=== PATIENT | female | born 1955 | race Caucasian/White ===

== ENCOUNTER 2018-05-04 09:50 | Emergency (ER) | payer MEDICARE, OTHER ==
[~2018-05-04] VITALS: Ht 172.7 cm; Wt 59.0 kg
[2018-05-04 11:56] LABS: Basophils # (auto) 0 uL; Basophils % (auto) 0.2 % (0.0-2.0); Eosinophils # (auto) 0 uL; Eosinophils % (auto) 0.4 % (0.0-7.0); Hematocrit 42.4 % (36.0-46.0); Hemoglobin 14.5 g/dL (12.2-16.2); Lymphocytes # (auto) 1.7 uL; Lymphocytes % (auto) 23.5 % (10.0-50.0); Mean Corpuscular Hemoglobin 32.1 pg (28.0-32.0); Mean Corpuscular Hgb Conc. 34.2 g/dL (32.0-36.0); Mean Corpuscular Volume 93.8 fL (80.0-100.0); Monocytes # (auto) 0.3 uL; Monocytes % (auto) 4.8 % (0.0-12.0); Neutrophils # (auto) 5.1 uL; Neutrophils % (auto) 71.1 % (37.0-80.0); Platelet Count (auto) 276 10^3/uL (140-450); Red Blood Cells 4.52 10^6/uL (4.0-5.20); Red Cell Distribution Width 14.1 % (11.8-14.3); White Blood Cell 7.2 10^3/uL (4.4-10.8)
[2018-05-04 12:04] LABS: Albumin 3.8 g/dL (3.4-5.0)
[2018-05-04 12:07] LABS: BUN/Creatinine Ratio 20.7; Bilirubin, Total 0.3 mg/dL (0.2-1.0); Total Protein 7.3 g/dL (6.4-8.2)
[2018-05-04 13:06] LABS: Urine Bacteria FEW /hpf (None Seen); Urine Blood Negative /uL (Negative); Urine Hyaline Cast FEW /lpf (0 - 2); Urine Mucus MANY (None Seen); Urine Specific Gravity 1.028 (1.001-1.035); Urine WBC 15 /hpf (0 - 5)
[2018-05-04 13:36] LABS: Alcohol, Urine < 3.0 mg/dL (0-5); Amphetamine Screen, Urine NEGATIVE (NEGATIVE); Barbiturate Scree,Urine NEGATIVE (NEGATIVE); Benzodiazephine Screen, Urine NEGATIVE (NEGATIVE); Cannabinoid Screen, Urine NEGATIVE (NEGATIVE); Cocaine Screen, Urine NEGATIVE (NEGATIVE); Opiate Scree,Urine NEGATIVE (NEGATIVE); Phencyclidine Screen, Urine NEGATIVE (NEGATIVE)
[2018-05-04 14:30] LABS: Salicylate 2.7 mg/dL (2.8-20.0)
[2018-05-04] MEDS ORDERED: cefTRIAXone W LIDOCAINE 1 GM IM IM ONE (14:30)
[2018-05-04 14:34] LABS: Acetaminophen < 2.0 ug/mL (10-30)
[2018-05-04] MEDS ORDERED: cefTRIAXone SOD 1,000 MG VL ONE (19:41)
[2018-05-05] MEDS ORDERED: LORazepam 0.5 MG TAB ONE (09:02)
[2018-05-05] MEDS: LORazepam 0.5 MG TAB PO PRN ×2 (09:07→18:15)
[2018-05-05] MEDS: NITROFURANTOIN (MONO) 100 mg CAP PO SCH (10:20)
[2018-05-05] MEDS ORDERED: NICOTINE 7MG/24HR TOPICAL PATCH TD ONE (18:30)
[2018-05-06] MEDS: NITROFURANTOIN (MONO) 100 mg CAP PO SCH ×3 (16:23→22:00)
[2018-05-06] MEDS ORDERED: LORazepam 0.5 MG TAB PO ONE (20:15)
[2018-05-07 08:53] VITALS: BP 125/82
[2018-05-07] MEDS: NITROFURANTOIN (MONO) 100 mg CAP PO SCH (10:00)
== END 2018-05-04 21:41 | disposition home or self-care (01) ==
LOC: ER 09:50
DX: F32.2 Major depressive disorder, single episode, severe without psychotic features (principal); N39.0 Urinary tract infection, site not specified; F41.9 Anxiety disorder, unspecified; F17.210 Nicotine dependence, cigarettes, uncomplicated; F12.90 Cannabis use, unspecified, uncomplicated; Z59.0 Homelessness; Z98.51 Tubal ligation status
CPT/HCPCS: 36415; 71045; 80053; 80307; 80329; 81001; 85025; 93005; 94761; 96372; 99285; J0696

== ENCOUNTER 2018-05-09 09:15 | Emergency (ER) | payer OTHER ==
[~2018-05-09] VITALS: Ht 172.7 cm; Wt 68.0 kg
[2018-05-09 09:52] LABS: Basophils # (auto) 0 uL; Basophils % (auto) 0.1 % (0.0-2.0); Eosinophils # (auto) 0 uL; Eosinophils % (auto) 0.4 % (0.0-7.0); Hematocrit 42.4 % (36.0-46.0); Hemoglobin 14.2 g/dL (12.2-16.2); Lymphocytes # (auto) 1.4 uL; Lymphocytes % (auto) 18.1 % (10.0-50.0); Mean Corpuscular Hemoglobin 31.6 pg (28.0-32.0); Mean Corpuscular Hgb Conc. 33.4 g/dL (32.0-36.0); Mean Corpuscular Volume 94.6 fL (80.0-100.0); Monocytes # (auto) 0.5 uL; Monocytes % (auto) 5.9 % (0.0-12.0); Neutrophils % (auto) 75.5 % (37.0-80.0); Nucleated Red Blood Cells % 0.1 %; Platelet Count (auto) 305 10^3/uL (140-450); Red Blood Cells 4.49 10^6/uL (4.0-5.20); Red Cell Distribution Width 13.7 % (11.8-14.3); White Blood Cell 7.9 10^3/uL (4.4-10.8)
[2018-05-09 10:12] LABS: Albumin 3.9 g/dL (3.4-5.0); Anion Gap 7 (5-15); Blood Urea Nitrogen 19 mg/dL (7-18); Calcium 8.7 mg/dL (8.5-10.1); Carbon Dioxide 27 mmol/L (21-32); Chloride 102 mmol/L (98-107); Glucose 128 mg/dL (74-106); Magnesium 2.5 mg/dL (1.6-2.6); Potassium 3.7 mmol/L (3.5-5.1); Sodium 136 mmol/L (136-145)
[2018-05-09 10:18] LABS: Alanine Aminotransferase 23 U/L (13-56); Alkaline Phosphatase 93 U/L (45-117); Aspartate Aminotransferase 21 U/L (15-37); BUN/Creatinine Ratio 20.2; Bilirubin, Total 0.4 mg/dL (0.2-1.0); GFR African American 77 mL/min; GFR Non-African American 64 mL/min; Total Protein 7.3 g/dL (6.4-8.2)
[2018-05-09 11:40] LABS: Urine Bacteria FEW /hpf (None Seen); Urine Blood Negative /uL (Negative); Urine Mucus FEW (None Seen); Urine Specific Gravity 1.022 (1.001-1.035); Urine WBC 4 /hpf (0 - 5)
[2018-05-09] MEDS ORDERED: OSELTAMIVIR 75 MG CAP PO ONE (13:15)
[2018-05-09 15:39] LABS: Alcohol, Urine < 3.0 mg/dL (0-5); Amphetamine Screen, Urine NEGATIVE (NEGATIVE); Barbiturate Scree,Urine NEGATIVE (NEGATIVE); Benzodiazephine Screen, Urine NEGATIVE (NEGATIVE); Cannabinoid Screen, Urine NEGATIVE (NEGATIVE); Cocaine Screen, Urine NEGATIVE (NEGATIVE); Opiate Scree,Urine NEGATIVE (NEGATIVE); Phencyclidine Screen, Urine NEGATIVE (NEGATIVE)
[2018-05-10] MEDS ORDERED: ONDANSETRON HCL 4 MG/2 ML VIAL IM ONE
[2018-05-12 08:31] VITALS: BP 126/64
== END 2018-05-12 14:56 | disposition home or self-care (01) ==
LOC: EDBD 09:15 → ER 09:15
DX: R45.851 Suicidal ideations (principal); J11.1 Influenza due to unidentified influenza virus with other respiratory manifestations; F41.9 Anxiety disorder, unspecified; F32.9 Major depressive disorder, single episode, unspecified; F17.210 Nicotine dependence, cigarettes, uncomplicated; F12.90 Cannabis use, unspecified, uncomplicated; Z98.51 Tubal ligation status; Z59.0 Homelessness
CPT/HCPCS: 36415; 80053; 80307; 80320; 81001; 83735; 84484; 85025; 87804; 93005; 96372; 99285; J2405

== ENCOUNTER 2022-04-03 18:46 | Inpatient (IN) | payer MEDICARE, OTHER ==
[~2022-04-03] VITALS: Ht 162.6 cm; Wt 80.5 kg
[2022-04-03 20:15] LABS: Basophils # (auto) 0 10 ^3/uL (0-0.2); Basophils % (auto) 0.2 % (0.0-2.0); Eosinophils # (auto) 0.1 10 ^3/uL (0-0.8); Eosinophils % (auto) 1.1 % (0.0-7.0); Hematocrit 44.5 % (36.0-46.0); Hemoglobin 15.3 g/dL (12.2-16.2); Lymphocytes # (auto) 2.5 10 ^3/uL (0.4-5.4); Lymphocytes % (auto) 36.9 % (10.0-50.0); Mean Corpuscular Hemoglobin 32.6 pg (28.0-32.0); Mean Corpuscular Hgb Conc. 34.5 g/dL (32.0-36.0); Mean Corpuscular Volume 94.7 fL (80.0-100.0); Monocytes # (auto) 0.4 10 ^3/uL (0-1.3); Monocytes % (auto) 6.2 % (0.0-12.0); Neutrophils # (auto) 3.8 10 ^3/uL (1.6-8.6); Neutrophils % (auto) 55.6 % (37.0-80.0); Nucleated Red Blood Cells % 0.1 %; Red Cell Distribution Width 13.9 % (11.8-14.3); White Blood Cell 6.8 10^3/uL (4.4-10.8)
[2022-04-03 20:31] LABS: Albumin 3.6 g/dL (3.4-5.0); BUN/Creatinine Ratio 19.4; Calcium 9.8 mg/dL (8.5-10.1); Potassium 4.5 mmol/L (3.5-5.1)
[2022-04-03 20:34] LABS: Bilirubin, Total 0.3 mg/dL (0.2-1.0); Total Protein 6.9 g/dL (6.4-8.2)
[2022-04-04 09:30] LABS: INR 0.97 (0.9-1.15); Partial Thromboplastin Time 27.7 sec (24.6-33.4)
[2022-04-04] MEDS ORDERED: ACETAMINOPHEN 325 MG TAB PO PRN (10:30)
[2022-04-04] MEDS ORDERED: NITROGLYCERIN 0.4 MG SL TAB SL PRN (10:30)
[2022-04-04] MEDS ORDERED: ONDANSETRON HCL 4 MG/2 ML VIAL IV PRN (10:30)
[2022-04-04] MEDS ORDERED: MORPHINE SULFATE 4 MG/ML SYR/VIAL IV PRN (10:30)
[2022-04-04] MEDS ORDERED: ENOXAPARIN SOD 30 MG/0.3 ML SYRINGE SC ONE (10:30)
[2022-04-04] MEDS ORDERED: ENOXAPARIN SOD 40 MG/0.4 ML SYRINGE SC ONE (11:00)
[2022-04-04] MEDS: ASPirin 81 mg TAB PO SCH (11:13)
[2022-04-04 11:24] LABS: INR 0.99 (0.9-1.15)
[2022-04-04] MEDS: ATORVASTATIN 20 MG TAB PO SCH (22:17)
[2022-04-05 05:00] LABS: Basophils # (auto) 0 10 ^3/uL (0-0.2); Basophils % (auto) 0.2 % (0.0-2.0); Eosinophils # (auto) 0.1 10 ^3/uL (0-0.8); Eosinophils % (auto) 1.1 % (0.0-7.0); Hematocrit 44.9 % (36.0-46.0); Hemoglobin 15.4 g/dL (12.2-16.2); Lymphocytes % (auto) 37.7 % (10.0-50.0); Mean Corpuscular Hemoglobin 32.3 pg (28.0-32.0); Mean Corpuscular Hgb Conc. 34.2 g/dL (32.0-36.0); Mean Corpuscular Volume 94.6 fL (80.0-100.0); Monocytes # (auto) 0.4 10 ^3/uL (0-1.3); Monocytes % (auto) 7.3 % (0.0-12.0); Neutrophils # (auto) 2.8 10 ^3/uL (1.6-8.6); Neutrophils % (auto) 53.7 % (37.0-80.0); Nucleated Red Blood Cells % 0.1 %; Red Blood Cells 4.75 10^6/uL (4.0-5.20); Red Cell Distribution Width 13.8 % (11.8-14.3); White Blood Cell 5.3 10^3/uL (4.4-10.8)
[2022-04-05 05:14] LABS: Albumin 3.5 g/dL (3.4-5.0); Calcium 8.7 mg/dL (8.5-10.1); Potassium 4.3 mmol/L (3.5-5.1)
[2022-04-05 05:18] LABS: BUN/Creatinine Ratio 27.6; Bilirubin, Total 0.5 mg/dL (0.2-1.0); Total Protein 6.2 g/dL (6.4-8.2)
[2022-04-05 08:06] LABS: RPR Non Reactive (Non Reactive)
[2022-04-05] MEDS: LISINOPRIL 5 MG TAB PO SCH (10:26)
[2022-04-05] MEDS: ASPirin 81 mg TAB PO SCH (10:26)
[2022-04-05] MEDS: ENOXAPARIN SOD 40 MG/0.4 ML SYRINGE SC SCH (10:27)
[2022-04-05] MEDS: DOCUSATE SOD 100 MG CAP PO SCH (11:01)
[2022-04-05 13:59] LABS: Urine Bacteria FEW /hpf (None Seen); Urine Blood Negative /uL (Negative); Urine Mucus FEW (None Seen); Urine WBC 10 /hpf (0 - 5)
[2022-04-05 14:32] LABS: Alcohol, Urine < 3.0 mg/dL (0-10); Barbiturate Scree,Urine NEGATIVE (NEGATIVE); Benzodiazephine Screen, Urine NEGATIVE (NEGATIVE); Cannabinoid Screen, Urine NEGATIVE (NEGATIVE); Cocaine Screen, Urine NEGATIVE (NEGATIVE); Opiate Scree,Urine NEGATIVE (NEGATIVE); Phencyclidine Screen, Urine NEGATIVE (NEGATIVE)
[2022-04-05 15:13] LABS: Amphetamine Screen, Urine POSITIVE (NEGATIVE)
[2022-04-05 18:40] VITALS: BP 102/74
[2022-04-05] MEDS ORDERED: ATOR20TA50 PO (19:30)
[2022-04-05] MEDS ORDERED: ESCI-28 PO (19:30)
[2022-04-05] MEDS ORDERED: QUET1TAB11 PO (19:30)
[2022-04-05] MEDS ORDERED: DIVA1TAB37 PO (19:30)
[2022-04-05] MEDS ORDERED: OLAN15TA31 PO (19:30)
[2022-04-05 20:00] VITALS: BP 112/63
[2022-04-05 22:00] VITALS: BP 112/63
[2022-04-05] MEDS: ATORVASTATIN 20 MG TAB PO SCH (22:00)
[2022-04-06 05:00] VITALS: BP 114/69
[2022-04-06 08:00] VITALS: BP 113/69
[2022-04-06 09:30] VITALS: BP 113/69
[2022-04-06] MEDS: DOCUSATE SOD 100 MG CAP PO SCH (10:18)
[2022-04-06] MEDS: ASPirin 81 mg TAB PO SCH (10:18)
[2022-04-06] MEDS: LISINOPRIL 5 MG TAB PO SCH (10:19)
[2022-04-06] MEDS: ENOXAPARIN SOD 40 MG/0.4 ML SYRINGE SC SCH (10:20)
[2022-04-06 12:34] VITALS: BP 109/61
[2022-04-06 16:36] VITALS: BP 112/71
[2022-04-06] MEDS: ATORVASTATIN 20 MG TAB PO SCH (20:48)
[2022-04-06 22:28] VITALS: BP 124/80
[2022-04-07 04:48] VITALS: BP 102/53
[2022-04-07] MEDS: ENOXAPARIN SOD 40 MG/0.4 ML SYRINGE SC SCH (09:10)
[2022-04-07] MEDS: DOCUSATE SOD 100 MG CAP PO SCH (09:10)
[2022-04-07] MEDS: ASPirin 81 mg TAB PO SCH (09:10)
[2022-04-07] MEDS: LISINOPRIL 5 MG TAB PO SCH (09:11)
[2022-04-07 09:24] VITALS: BP 110/70
[2022-04-07 12:33] VITALS: BP 98/63
[2022-04-07 15:10] VITALS: BP 110/70
== END 2022-04-07 16:00 | disposition home or self-care (01) | DRG 311 ==
LOC: EDBD 18:46 → ER 18:50 → TELE 04-04 10:32 → TELE-EAST 04-05 18:40
PROVIDERS: ADMIT Nurse Practitioner Family; ATTEND Internal Medicine Geriatric Medicine
DX: I24.9 Acute ischemic heart disease, unspecified (principal); G93.40 Encephalopathy, unspecified; F32.A Depression, unspecified; F41.9 Anxiety disorder, unspecified; I10 Essential (primary) hypertension; F19.10 Other psychoactive substance abuse, uncomplicated; Z20.822 Contact with and (suspected) exposure to COVID-19; E66.9 Obesity, unspecified; E78.5 Hyperlipidemia, unspecified; F15.10 Other stimulant abuse, uncomplicated; F25.9 Schizoaffective disorder, unspecified; Z59.00 Homelessness unspecified; I25.2 Old myocardial infarction; Z68.30 Body mass index [BMI] 30.0-30.9, adult; Z72.0 Tobacco use; Z71.6 Tobacco abuse counseling
CPT/HCPCS: 36415; 70450; 71045; 80053; 80061; 80307; 80320; 80329; 81001; 82306; 82553; 82607; 83605; 83690; 83735; 84443; 84484; 85025; 85610; 85730; 86592; 87426; 93005; 93306; 93886; 96372; G0378

== ENCOUNTER 2022-06-20 13:08 | Inpatient (IN) | payer OTHER ==
[~2022-06-20] VITALS: Ht 162.6 cm; Wt 76.2 kg
[~2022-06-20 13:08] MED LIST: ATOR20TA50 PO; DIVA1TAB37 PO; ESCI-28 PO; OLAN15TA31 PO; QUET1TAB11 PO
[2022-06-20 14:03] LABS: Basophils # (auto) 0 10 ^3/uL (0-0.2); Basophils % (auto) 0.1 % (0.0-2.0); Eosinophils # (auto) 0 10 ^3/uL (0-0.8); Eosinophils % (auto) 0.4 % (0.0-7.0); Hematocrit 46.6 % (36.0-46.0); Hemoglobin 15.8 g/dL (12.2-16.2); Lymphocytes # (auto) 1.6 10 ^3/uL (0.4-5.4); Lymphocytes % (auto) 21.6 % (10.0-50.0); Mean Corpuscular Volume 94.2 fL (80.0-100.0); Monocytes # (auto) 0.4 10 ^3/uL (0-1.3); Monocytes % (auto) 5.7 % (0.0-12.0); Neutrophils # (auto) 5.4 10 ^3/uL (1.6-8.6); Neutrophils % (auto) 72.2 % (37.0-80.0); Nucleated Red Blood Cells % 0.1 %; Red Blood Cells 4.95 10^6/uL (4.0-5.20); Red Cell Distribution Width 13.5 % (11.8-14.3); White Blood Cell 7.4 10^3/uL (4.4-10.8)
[2022-06-20 14:17] LABS: INR 0.97 (0.9-1.15); Partial Thromboplastin Time 25.1 sec (24.6-33.4)
[2022-06-20 14:46] LABS: Alanine Aminotransferase 27 U/L (13-56); Albumin 3.3 g/dL (3.4-5.0); Anion Gap 5 (5-15); Aspartate Aminotransferase 21 U/L (15-37); BUN/Creatinine Ratio 15.8 (10.0-20.0); Blood Urea Nitrogen 15 mg/dL (7-18); Calcium 8.9 mg/dL (8.5-10.1); Carbon Dioxide 28 mmol/L (21-32); Chloride 108 mmol/L (98-107); GFR African American 75 mL/min; GFR Non-African American 62 mL/min; Glucose 98 mg/dL (74-106); Magnesium 2.5 mg/dL (1.6-2.6); Potassium 5.3 mmol/L (3.5-5.1); Sodium 141 mmol/L (136-145)
[2022-06-20 14:49] LABS: Alkaline Phosphatase 77 U/L (45-117); Bilirubin, Total 0.3 mg/dL (0.2-1.0); Total Protein 6.5 g/dL (6.4-8.2)
[2022-06-20] MEDS ORDERED: PROCHLORPERAZINE EDISYLATE 5 MG/ML 2ML VIAL IM ONE (15:30)
[2022-06-20] MEDS ORDERED: levoFLOXacin 500MG 100 ML IV STA (15:38)
[2022-06-20] MEDS ORDERED: ACETAMINOPHEN 325 MG TAB PO PRN (22:00)
[2022-06-20] MEDS ORDERED: SODIUM ZIRCONIUM CYCL 10 GM PAK PO ONE (22:00)
[2022-06-20] MEDS ORDERED: HYDROcodone-ACET 5/325MG TAB PO PRN (22:00)
[2022-06-20] MEDS ORDERED: DOCUSATE SOD 100 MG CAP PO PRN (22:00)
[2022-06-20] MEDS ORDERED: ONDANSETRON HCL 4 MG/2 ML VIAL IV PRN (22:00)
[2022-06-20] MEDS: SODIUM CHLOR 0.9% PF (SALINE LOCK) 10ML VIAL/SYR IV SCH (22:21)
[2022-06-20] MEDS ORDERED: MORPHINE SULFATE INJ 2 MG/ml SYRG IV PRN (22:30)
[2022-06-20] MEDS ORDERED: NITROGLYCERIN 0.4 MG SL TAB SL PRN (22:30)
[2022-06-21 06:05] LABS: Albumin 3.3 g/dL (3.4-5.0); Calcium 8.7 mg/dL (8.5-10.1); Potassium 4.3 mmol/L (3.5-5.1)
[2022-06-21 06:10] LABS: Bilirubin, Total 0.3 mg/dL (0.2-1.0)
[2022-06-21 06:35] LABS: Basophils # (auto) 0 10 ^3/uL (0-0.2); Basophils % (auto) 0.2 % (0.0-2.0); Eosinophils # (auto) 0 10 ^3/uL (0-0.8); Eosinophils % (auto) 0.5 % (0.0-7.0); Hematocrit 46.2 % (36.0-46.0); Hemoglobin 15.8 g/dL (12.2-16.2); Lymphocytes % (auto) 30.2 % (10.0-50.0); Mean Corpuscular Hemoglobin 32.1 pg (28.0-32.0); Mean Corpuscular Hgb Conc. 34.2 g/dL (32.0-36.0); Mean Corpuscular Volume 93.6 fL (80.0-100.0); Monocytes # (auto) 0.6 10 ^3/uL (0-1.3); Neutrophils # (auto) 6.2 10 ^3/uL (1.6-8.6); Neutrophils % (auto) 63.1 % (37.0-80.0); Nucleated Red Blood Cells % 0.3 %; Red Blood Cells 4.93 10^6/uL (4.0-5.20); Red Cell Distribution Width 13.6 % (11.8-14.3); White Blood Cell 9.9 10^3/uL (4.4-10.8)
[2022-06-21] MEDS: SODIUM CHLOR 0.9% PF (SALINE LOCK) 10ML VIAL/SYR IV SCH ×3 (09:13→23:13)
[2022-06-21] MEDS: ENOXAPARIN SOD 40 MG/0.4 ML SYRINGE SC SCH (10:55)
[2022-06-22] MEDS: SODIUM CHLOR 0.9% PF (SALINE LOCK) 10ML VIAL/SYR IV SCH ×3 (06:11→22:30)
[2022-06-22] MEDS: ENOXAPARIN SOD 40 MG/0.4 ML SYRINGE SC SCH (10:30)
[2022-06-22] MEDS ORDERED: CHOLECALCIFEROL (VITD3) 2,000 UNIT CAP/TAB PO ONE (13:00)
[2022-06-22] MEDS ORDERED: ZINC SULFATE 220mg CAP or TAB PO ONE (13:00)
[2022-06-22] MEDS ORDERED: ASCORBIC ACID 500 MG TAB PO ONE (13:00)
[2022-06-22] MEDS ORDERED: DexAMETHasone 4 MG TAB PO ONE (13:15)
[2022-06-22] MEDS ORDERED: AZITHROMYCIN 500MG/ 250ML 250 ML IV ONE (13:15)
[2022-06-22] MEDS: ASCORBIC ACID 500 MG TAB PO SCH (22:32)
[2022-06-23] VITALS (7 sets, daily range): BP systolic 99–137; BP diastolic 56–77
[2022-06-23] MEDS: SODIUM CHLOR 0.9% PF (SALINE LOCK) 10ML VIAL/SYR IV SCH ×2 (06:32→10:53)
[2022-06-23] MEDS ORDERED: CHOLECALCIFEROL (VITD3) 2,000 UNIT CAP/TAB PO SCH (10:00)
[2022-06-23] MEDS ORDERED: DexAMETHasone 4 MG TAB PO SCH (10:00)
[2022-06-23] MEDS ORDERED: AZITHROMYCIN 500MG/ 250ML 250 ML IV SCH (10:00)
[2022-06-23] MEDS ORDERED: ZINC SULFATE 220mg CAP or TAB PO SCH (10:00)
[2022-06-23] MEDS: ASCORBIC ACID 500 MG TAB PO SCH (10:51)
[2022-06-23] MEDS: ENOXAPARIN SOD 40 MG/0.4 ML SYRINGE SC SCH (10:52)
[2022-06-23] MEDS ORDERED: AZITTAB PO (12:18)
[2022-06-23] MEDS ORDERED: DEXA6TAB6 PO (12:18)
[2022-06-23] MEDS ORDERED: ZINC220C10 PO (12:18)
[2022-06-23] MEDS ORDERED: CHOL1CAP47 PO (12:18)
[2022-06-23] MEDS ORDERED: ASCO500T11 PO (12:18)
== END 2022-06-23 21:35 | disposition home or self-care (01) | DRG 177 ==
LOC: ER 13:08 → EDBD 13:08 → TELE 22:22 → TELE-WESTW 06-22 22:40
PROVIDERS: ADMIT Nurse Practitioner Family; ATTEND Internal Medicine Geriatric Medicine
DX: U07.1 COVID-19 (principal); J12.82 Pneumonia due to coronavirus disease 2019; J96.01 Acute respiratory failure with hypoxia; E44.1 Mild protein-calorie malnutrition; F03.93 Unspecified dementia, unspecified severity, with mood disturbance; F03.94 Unspecified dementia, unspecified severity, with anxiety; J90 Pleural effusion, not elsewhere classified; J98.11 Atelectasis; J44.0 Chronic obstructive pulmonary disease with (acute) lower respiratory infection; F17.210 Nicotine dependence, cigarettes, uncomplicated; E87.5 Hyperkalemia; E88.09 Other disorders of plasma-protein metabolism, not elsewhere classified; Z68.28 Body mass index [BMI] 28.0-28.9, adult; I25.2 Old myocardial infarction; Z59.00 Homelessness unspecified; Z98.82 Breast implant status
CPT/HCPCS: 36415; 70450; 71045; 80053; 82728; 83735; 83880; 84484; 85025; 85379; 85610; 85730; 86141; 87040; 87426; 93005; 96365; 96372; 97163; G0378; J1956; J2405

== ENCOUNTER 2024-04-03 14:52 | Inpatient (IN) | payer OTHER, MEDICAID ==
[~2024-04-03] VITALS: Ht 172.7 cm; Wt 56.5 kg
[~2024-04-03 14:52] MED LIST changes: +ASCO500T11 PO; +AZITTAB PO; +CHOL1CAP47 PO; +DEXA6TAB6 PO; -ESCI-28 PO; +ESCI1TAB36 PO; +ZINC220C10 PO
--- NOTE | 2024-04-03 15:00 | ECG ---
[facility] Test Date: 2024-04-03 Test Time: 14:53:39 Pat Name: COSMO MARAVILLA Department: er Room: [address] [place] [address] Gender: F Director Weights And Measures: gp : 1955 Requested By: NATHAN KEENE Order Number: [id number] Reading MD: Jameson Greco Measurements Intervals [place] Rate: 87 P: 72 CA: 126 QRS: 16 QRSD: 80 T: 44 QT: 337 QTc: 406 Interpretive Statements Sinus rhythm Probable left atrial enlargement RSR' in V1 or V2, probably normal variant Probable left ventricular hypertrophy Electronically Signed On 04-04-2024 18:26:23 PST by Jameson Greco Please click the below link to view image of tracing.
--- NOTE | 2024-04-03 15:03 | ED.PDOC ---
History of Present Illness HPI Comments 68-year-old female brought by paramedics from home because of chest pain. Chest pain started an hour ago. She was sitting down when the pain started. Radiation of the chest pain to the back. Her saturation when the paramedics arrived was 87%. She was placed on oxygen which increased the saturation above 90%. History of COPD. She is not on home oxygen. She continues to smoke cigarettes. Denies any other symptoms. Time Seen by MD: 14:55 Primary Care Provider: "I DON'T KNOW" Reviewed Notes: Nurses Notes, Medications, Allergies Allergies: Coded Allergies: NO KNOWN ALLERGIES (Unverified , 01/12/15) Home Meds Active Scripts Zinc Sulfate (Zinc) 220 Mg Cap, 220 MG PO Q24H for 15 Days, #15 CAP Prov:THANH EPPS MD 06/23/22 Cholecalciferol (Vitamin D3 Super Strength) 2,000 Unit Cap, 2000 UNIT PO Q24H f or 15 Days, #15 CAP Prov:THANH EPPS MD 06/23/22 Ascorbic Acid (VITAMIN C TABLET) 500 Mg Tb, 1 TAB PO BID, #30 TAB Prov:THANH EPPS MD 06/23/22 Azithromycin (Zithromax Z-Tres) 250 Mg Tab, 250 MG PO Q24H for 6 Days, #6 TAB Prov:THANH EPPS MD 06/23/22 Dexamethasone (Decadron) 6 Mg Tab, 6 MG PO Q24H for 5 Days, #5 TAB Prov:THANH EPPS MD 06/23/22 Reported Medications Olanzapine (OLANZAPINE) 15 Mg Tab, 1 TAB PO DAILY 04/05/22 Atorvastatin Calcium (ATORVASTATIN CALCIUM) 20 Mg Tab, 1 TAB PO DAILY 04/05/22 Divalproex Sodium (Divalproex Sodium Dr) 125 Mg Tab, 1 TAB PO TID 04/05/22 Quetiapine Fumerate (QUETIAPINE FUMARATE) 25 Mg Tab, 3 TAB PO HS 04/05/22 Escitalopram Oxalate (ESCITALOPRAM OXALATE) 10 Mg Tab, 1.5 TAB PO DAILY 04/05/22 Information Source: Patient, Emergency Med Personnel Mode of Arrival: EMS Severity: Moderate Timing: Minutes Duration: Since onset Past Medical History PAST MEDICAL HISTORY: Anxiety, Depression, DC Surgical History: Tonsillectomy, Tubal Ligation DELPHI PROGRAMMER History: No Pertinent DELPHI PROGRAMMER History Family History Family History: Family hx of DM, Family hx of heart nate, Family hx of HTN Social History Smoker: Cigarettes, Greater Than 1 Pack/Day Alcohol: Occasionally Drugs: Marijuana, Methamphetamine Lives In: Homeless Constitutional: denies: chills, diaphoresis, fatigue, fever, malaise, sweats, weakness, others EENTM: denies: blurred vision, double vision, ear bleeding, ear discharge, ear drainage, ear pain, ear ringing, eye pain, eye redness, hearing loss, mouth pain, mouth swelling, nasal discharge, nose bleeding, nose congestion, nose pain, photophobia, tearing, throat pain, throat swelling, voice changes, others Respiratory: denies: cough, hemoptysis, orthopnea, SOB at rest, shortness of breath, SOB with excertion, stridor, wheezing, others Cardiovascular: reports: chest pain; denies: dizzy spells, diaphoresis, Dyspnea on exertion, edema, irregular heart beat, left arm pain, lightheadedness, palpitations, PND, syncope, others Gastrointestinal: denies: abdomen distended, abdominal pain, blood streaked bowels, constipated, diarrhea, dysphagia, difficulty swallowing, hematemesis, melena, nausea, poor appetite, poor fluid intake, rectal bleeding, rectal pain, vomiting, others Genitourinary: denies: abnormal vagina bleeding, burning, dyspareunia, dysuria, flank pain, frequency, hematuria, incontinence, pain, , vagina discharge, urgency, others Neurological: denies: dizziness, fainting, headache, left sided numbness, left sided weakness, numbness, paresthesia, pre-existing deficit, right sided numbness, right sided weakness, seizure, speech problems, tingling, tremors, weakness, others Musculoskeletal: denies: back pain, gout, joint pain, joint swelling, muscle pain, muscle stiffness, neck pain, others Integumetry: denies: bruises, change in color, change in hair/nails, dryness, laceration, lesions, lumps, rash, wounds, others Allergic/Immunocompromised: denies: Difficulty Healing, Frequent Infections, Hives, Itching, others Hematologic/Lymphatic: denies: anemia, blood clots, easy bleeding, easy bruising, swollen glands, others Endocrine: denies: excessive hunger, excessive sweating, excessive thirst, excessive urination, flushing, intolerance to cold, intolerance to heat, unexplained weight gain, unexplained weight loss, others Psychiatric: denies: anxiety, bipolar disorder, depression, hopeless, panic disorder, schizophrenia, sleepless, suicidal, others Physical Exam General Appearance: Moderate Distress HEENT: Normal ENT Inspection, Pharynx Normal, TMs Normal Neck: Full Range of Motion, Non-Tender, Normal, Normal Inspection Respiratory: Accessory Muscle Use, Other (Coarse breath sounds) Cardiovascular: No Edema, No JVD, No Murmur, No Gallop, Normal Peripheral Pulses, Regular Rate/Rhythm Breast Exam: Deferred Gastrointestinal: No Organomegaly, Non Tender, No Pulsatile Mass, Normal Bowel Sounds, Soft Genitalia: Deferred Pelvic: Deferred Rectal: Deferred Extremities: No calf tenderness, Normal capillary refill, Normal inspection, Normal range of motion, Non-tender, No pedal edema Musculoskeletal : Apperance: Normal Neurologic: Alert, tester regulator II-XII nml as Tested, No Motor Deficits, Normal Affect, Normal Mood, No Sensory Deficits Cerebellar Function: NOT DONE Reflexes: NOT DONE Skin: Dry, Normal Color, Warm Peripheral Pulses: 3+ Radial (R), 3+ Radial (L) Lymphatic: No Adenopathy Was a procedure done? Was a procedure done?: No Differential Dx Considerations may include: COPD Electrolyte imbalance X-Ray, Labs, Meds, VS Patient alert. Complaining of chest pain. Placed on oxygen. Answering questions. EKG reviewed does not show any acute changes. Continues to smoke cigarettes. Counseled patient on effects of smoking cigarettes for 15 minutes. She is using accessory muscles. Was given steroid. Was given breathing treatment. Was given aspirin. Risk factors for coronary artery disease. Cardiology consultation. Possibly will need stress test. Reviewed her previous history. Explained to the patient. Continue cardiac monitoring. Time of 1ST Reevaluation: 15:01 Reevaluation 1ST: Unchanged Patient Education/Counseling: Diagnosis, Treatment, Prognosis Family Education/Counseling: No Family Present Departure 1 Departure Time of Disposition: 15:02 Impression: Primary Impression: Acute respiratory failure with hypoxia Additional Impressions: Chest pain of unknown etiology Pneumonitis COPD exacerbation Disposition: ADMITTED INPATIENT Admit to: Med Surg Condition: Guarded Critical Care Note Critical Care Time?: Yes (90 min-critical care time only) Stability Stability form required: No Heart Score Heart Score: Heart Score Response (Comments) Value History Slightly Suspicious 0 EKG Normal 0 Age >65 2 Risk Factors >3 or Hx ASHD 2 Troponin Normal limit 0 Total 4 NATHAN KEENE MD Apr 03, 2024 15:03
[2024-04-03] MEDS: ALBUTEROL SULF 2.5 MG/0.5ML(0.5%) NEB SOLN NEB ONE (15:24)
[2024-04-03] MEDS: IPRATROPIUM BROM 0.5 MG/2.5ML INH SOL NEB ONE (15:25)
[2024-04-03 15:53] LABS: Basophils # (auto) 0 10 ^3/uL (0-0.2); Basophils % (auto) 0.2 % (0.0-2.0); Eosinophils # (auto) 0 10 ^3/uL (0-0.8); Eosinophils % (auto) 0.1 % (0.0-7.0); Hematocrit 45.4 % (36.0-46.0); Hemoglobin 15.2 g/dL (12.2-16.2); Lymphocytes # (auto) 1.8 10 ^3/uL (0.4-5.4); Lymphocytes % (auto) 38.3 % (10.0-50.0); Mean Corpuscular Hemoglobin 32.7 pg (28.0-32.0); Mean Corpuscular Hgb Conc. 33.5 g/dL (32.0-36.0); Mean Corpuscular Volume 97.7 fL (80.0-100.0); Monocytes # (auto) 0.7 10 ^3/uL (0-1.3); Monocytes % (auto) 14.9 % (0.0-12.0); Neutrophils # (auto) 2.1 10 ^3/uL (1.6-8.6); Neutrophils % (auto) 46.5 % (37.0-80.0); Platelet Count (auto) 132 10^3/uL (140-450); Red Blood Cells 4.65 10^6/uL (4.0-5.20); Red Cell Distribution Width 15.4 % (11.8-14.3); White Blood Cell 4.6 10^3/uL (4.4-10.8)
[2024-04-03 16:14] LABS: Chloride 105 mmol/L (98-107); Potassium 3.9 mmol/L (3.5-5.1); Sodium 139 mmol/L (136-145)
[2024-04-03 16:15] LABS: Anion Gap 6 (5-15); Carbon Dioxide 28 mmol/L (20-31)
[2024-04-03 16:20] LABS: BUN/Creatinine Ratio 15.2 (10.0-20.0); Blood Urea Nitrogen 12 mg/dL (9-23); Glucose 75 mg/dL (74-106)
--- NOTE | 2024-04-03 17:17 | DVH ---
EXAMINATION: AP portable chest radiograph CLINICAL HISTORY: sob COMPARISON: XY CHEST PORTABLE on DOS: 06/20/22 FINDINGS: Costophrenic angles partially excluded. Streaky opacities in the lower lung [place]ina. No lobar consolidation identified. Large curvilinear calc ification again noted involving the left breast shadow. No definite pleural effusions or pneumothorax as visualized. Possible hiatal hernia noted. The cardiomediastinal silhouette otherwise appears with in normal limits given technique. IMPRESSION: Bibasilar opacities may reflect atelectasis / scarring. Please correlate to exclude infection. Possible hiatal hernia.
[2024-04-03] MEDS ORDERED: ONDANSETRON HCL 4 MG/2 ML VIAL IV PRN (20:00)
[2024-04-03] MEDS ORDERED: TEMAZEPAM 15 MG CAP PO PRN (20:00)
[2024-04-03] MEDS: methylPREDNISolone SOD SUCC 125 MG/2 ML VL IV ONE (21:00)
[2024-04-03] MEDS: ASPirin 325 MG TAB PO ONE (21:00)
[2024-04-03] MEDS: ATORVASTATIN 20 MG TAB PO SCH (21:05)
[2024-04-03] MEDS: DONEPEZIL HYDROCHLORIDE 5 MG TAB PO SCH (21:06)
[2024-04-03 21:45] VITALS: BP 134/80; PULSE 66; RESP 18; TEMP 98; O2SAT 97
[2024-04-04] VITALS (11 sets, daily range): BP systolic 111–145; BP diastolic 56–82; PULSE 60–86; RESP 16–20; TEMP 97.7–98.4; O2SAT 93–99
--- NOTE | 2024-04-04 03:59 | DVHHP2 ---
History of Present Illness Reason for Visit: Shortness for breath History of Present Illness 68-year-old female presents for evaluation of shortness for breath. Patient is a poor historian with dementia. Per ED records and personnel patient was brought in for evaluation of worsening shortness for breath. Patient currently denies chest pain. She is alert oriented x2. No nausea or vomiting. No abdominal pain. No other acute complaints reported. Past Medical History DE, Alzheimer's, depression Past Surgical History Tubal ligation and tonsillectomy Family History Noncontributory Smoke: No ALCOHOL: none Drugs: None Review of Systems Review of Systems Review of systems are currently negative otherwise addressed in HPI. Allergies: Coded Allergies: NO KNOWN ALLERGIES (Unverified , 01/12/15) Medications Current Medications Medications Dose Ordered Sig/Katelynn Route Start Time Stop Time Status Last Admin Dose Admin Divalproex Sodium 500 mg BID PO 04/03/24 22:00 04/03/24 21:05 500 MG Azithromycin 250 ml @ 125 mls/hr DAILY IV 04/04/24 10:00 Donepezil HCl 5 mg HS PO 04/03/24 22:00 04/03/24 21:06 5 MG Aspirin 81 mg DAILY PO 04/04/24 10:00 Albuterol 2.5 mg Q6HPRN PRN NEB 04/03/24 20:00 Atorvastatin Calcium 20 mg HS PO 04/03/24 22:00 04/03/24 21:05 20 MG Temazepam 15 mg QHSP PRN PO 04/03/24 20:00 Ondansetron HCl 4 mg Q4HP PRN IV 04/03/24 20:00 Enoxaparin Sodium 40 mg DAILY SC 04/04/24 10:00 Acetaminophen 650 mg Q6HP PRN PO 04/03/24 20:00 Exam Vital Signs Vital Signs Date Time Temp Pulse Resp B/P (MAP) Pulse Ox O2 Delivery O2 Flow Rate FiO2 04/04/24 01:16 97.7 62 16 111/59 94 3.0 32 97.7 04/03/24 20:00 Nasal Cannula* Exam Gen: 68-year-old female in mild distress Skin: Warm, dry, normal color and texture, no rash. HEENT: Normocephalic atraumatic, mucous membranes moist and pink. Neck: Cervical and supraclavicular nodes normal without enlargement, trachea is midline, thyroid gland is normal without masses. Pulmonary: Clear to auscultation and percussion bilaterally. Cardiac: Regular rate and rhythm. No murmur Abdomen: Soft, nontender, nondistended, bowel sounds present all 4 quadrants, no guarding, no rigidity, no organomegaly. Extremities: No cyanosis, clubbing, no edema Neuro: Cranial nerves II through XII grossly intact, normal affect and speech, no focal motor deficits. Labs/Xrays ORDERING PHYSICIAN: NATHAN KEENE MD PROCEDURE(s): CXRP - CHEST PORTABLE REASON: sob ORDER NUMBER(s): [id number], ACCESSION NUMBER(s): [id number] EXAMINATION: AP portable chest radiograph CLINICAL HISTORY: sob COMPARISON: XY CHEST PORTABLE on DOS: 06/20/22 FINDINGS: Costophrenic angles partially excluded. Streaky opacities in the lower lung [place]ina. No lobar consolidation identified. Large curvilinear calcification again noted involving the left breast shadow. No definite pleural effusions or pneumothorax as visualized. Possible hiatal hernia noted. The cardiomediastinal silhouette otherwise appears within normal limits given technique. IMPRESSION: Bibasilar opacities may reflect atelectasis / scarring. Please correlate to exclude infection. Possible hiatal hernia. Labs Test 04/03/24 22:31 04/03/24 15:40 04/03/24 02:30 Range/Units D-Dimer, Quantitative 1.09 H 0.0-0.49 mg/L FEU Troponin I High Sensitivity 9 </=34 ng/L White Blood Count 4.6 4.4-10.8 10^3/uL Red Blood Count 4.65 4.0-5.20 10^6/uL Hemoglobin 15.2 12.2-16.2 g/dL Hematocrit 45.4 36.0-46.0 % Mean Corpuscular Volume 97.7 80.0-100.0 fL Mean Corpuscular Hemoglobin 32.7 H 28.0-32.0 pg Mean Corpuscular Hemoglobin Concent 33.5 32.0-36.0 g/dL Red Cell Distribution Width 15.4 H 11.8-14.3 % Platelet Count 132 L 140-450 10^3/uL Mean Platelet Volume 8.3 6.9-10.8 fL Neutrophils (%) (Auto) 46.5 37.0-80.0 % Lymphocytes (%) (Auto) 38.3 10.0-50.0 % Monocytes (%) (Auto) 14.9 H 0.0-12.0 % Eosinophils (%) (Auto) 0.1 0.0-7.0 % Basophils (%) (Auto) 0.2 0.0-2.0 % Neutrophils # (Auto) 2.1 1.6-8.6 10 ^3/uL Lymphocytes # (Auto) 1.8 0.4-5.4 10 ^3/uL Monocytes # (Auto) 0.7 0-1.3 10 ^3/uL Eosinophils # (Auto) 0 0-0.8 10 ^3/uL Basophils # (Auto) 0 0-0.2 10 ^3/uL Nucleated Red Blood Cells 0.0 % Sodium Level 139 136-145 mmol/L Potassium Level 3.9 3.5-5.1 mmol/L Chloride Level 105 98-107 mmol/L Carbon Dioxide Level 28 20-31 mmol/L Anion Gap 6 5-15 Blood Urea Nitrogen 12 9-23 mg/dL Creatinine 0.79 0.550-1.02 mg/dL Glomerular Filtration Rate Calc 81 >90 mL/min BUN/Creatinine Ratio 15.2 10.0-20.0 Serum Glucose 75 74-106 mg/dL Calcium Level 10.0 8.7-10.4 mg/dL Assessment/Plan Assessment/Plan Assessment Acute hypoxic respiratory distress ? Pneumonia Hypertension Dementia Plan Admit the patient to [facility] to the hospitalist [facility] Resume home medications Continue treatment per orders. Plan discussed with: Patient My Orders Orders - CHRISTINA NOLASCO AGACNP Procedure Category Date Status Time Admit ADMIT 04/03/24 Transmitted 19:55 Covid19 Antigen Radha LAB 04/03/24 In Process Rapid Influenza A&B LAB 04/03/24 In Process 19:[address] Tablet PHA 04/03/24 In Process (Depakote "Dr" Tabl 22:00 Azithromycin 500mg/ PHA 04/04/24 In Process 250ml (Zithromax 50 10:00 Donepezil Tablet PHA 04/03/24 In Process (Aricept Tablet) 22:00 Aspirin Tablet PHA 04/04/24 In Process 10:00 Albuterol Medneb PHA 04/03/24 In Process (Ventolin Medneb) 20:00 Atorvastatin (Lipitor) PHA 04/03/24 In Process 22:00 Basic Metabolic Panel LAB 04/04/24 Logged 04:00 Temazepam (Restoril) PHA 04/03/24 In Process 20:00 Ondansetron Hcl PHA 04/03/24 In Process (Zofran) 20:00 Enoxaparin Sodium PHA 04/04/24 In Process (Lovenox) 10:00 Complete Blood Count LAB 04/04/24 Logged 04:00 Cardiac DIET 04/04/24 Transmitted Diet-2gna,Lofat,Lochol Breakfast Condition: Stable VIKA 04/03/24 In Process 19:56 Acetaminophen Tablet PHA 04/03/24 In Process (Tylenol Tablet) 20:00 Bedrest With Bathroom VIKA 04/03/24 In Process Privileg 19:[address] 04/04/24 Transmitted Contrast 03:50 Date of Service: Apr 03, 2024 Billing Provider: CHRISTINA NOLASCO Common Visit Codes: [id number] INP/OBS CARE (HIGH) CHRISTINA NOLASCO Apr 04, 2024 03:59
[2024-04-04 04:17] LABS: COVID19 ANTIGEN SOFIA FIA NEGATIVE (NEGATIVE); Rapid Influenza A Negative (Negative); Rapid Influenza B Negative (Negative)
[2024-04-04 05:29] LABS: Urine Amorphous Crystal FEW /hpf (None Seen); Urine Bacteria FEW /hpf (None Seen); Urine Blood Negative /uL (Negative); Urine Clarity Turbid (Clear); Urine Color Colorless (Yellow); Urine Mucus FEW (None Seen); Urine Protein, UAD Negative (Negative); Urine Specific Gravity 1.015 (1.001-1.035); Urine Squamous Epithelial Cell FEW /hpf (<5); Urine Urobilinogen Normal (Negative); Urine WBC 3 /hpf (0 - 5)
[2024-04-04] MEDS: IOHEXOL 350 MG/ML 100ML IJ ONE (06:37)
[2024-04-04 07:16] LABS: Basophils # (auto) 0 10 ^3/uL (0-0.2); Basophils % (auto) 0.1 % (0.0-2.0); Eosinophils # (auto) 0 10 ^3/uL (0-0.8); Hematocrit 43.9 % (36.0-46.0); Hemoglobin 14.9 g/dL (12.2-16.2); Lymphocytes # (auto) 0.8 10 ^3/uL (0.4-5.4); Lymphocytes % (auto) 28.9 % (10.0-50.0); Mean Corpuscular Hemoglobin 32.6 pg (28.0-32.0); Mean Corpuscular Volume 95.9 fL (80.0-100.0); Monocytes # (auto) 0.1 10 ^3/uL (0-1.3); Neutrophils # (auto) 1.8 10 ^3/uL (1.6-8.6); Platelet Count (auto) 143 10^3/uL (140-450); Red Blood Cells 4.58 10^6/uL (4.0-5.20); White Blood Cell 2.6 10^3/uL (4.4-10.8)
[2024-04-04 07:24] LABS: Anion Gap 4 (5-15); Chloride 103 mmol/L (98-107); Potassium 4.1 mmol/L (3.5-5.1); Sodium 140 mmol/L (136-145)
[2024-04-04 07:25] LABS: Calcium 9.8 mg/dL (8.7-10.4)
[2024-04-04 07:27] LABS: Carbon Dioxide 33 mmol/L (20-31)
[2024-04-04 07:30] LABS: BUN/Creatinine Ratio 19.1 (10.0-20.0); Blood Urea Nitrogen 13 mg/dL (9-23)
[2024-04-04 07:31] LABS: Glucose 112 mg/dL (74-106)
[2024-04-04] MEDS: ASPirin 81 mg TAB PO SCH (09:47)
[2024-04-04] MEDS: ENOXAPARIN SOD 40 MG/0.4 ML SYRINGE SC SCH (09:48)
[2024-04-04] MEDS: AZITHROMYCIN 500MG/ 250ML 250 ML IV SCH (10:27)
--- NOTE | 2024-04-04 10:40 | DVH ---
CTA Chest with intravenous contrast INDICATION: r/o pe COMPARISON: None TECHNIQUE: Multidetector spiral CTA of the chest was performed of the chest with intravenous contrast . PULMONARY ANGIOGRAPHY PROTOCOL was utilized using a bolus-tracking technique centered on the main p ulmonary artery. Axial, coronal and sagittal multiplanar and MIP reformats were performed. CONTRAST: Type of contrast: Omni 350 Contrast injected: 100 ml Radiation dose : Chest: CTDI volume is 16 mGy. Dose-length product is 318.33 mGy*cm The dose indicators for CT are the volume computed Tomography (CT) dose Index (CTDIvol) and the dose Length product (DLP), and are measured in units of mGy and mGy-cm, respectively. These indicators are not patient dose, but values generated from the CT scanner acquisition factors. The report includes radiation exposure data for exposures received during this examination. Findings: Pulmonary artery: No pulmonary embolism Lower neck: Normal thyroid. Lungs: Emphysematous changes in both lungs. Bilateral apical pleural-parenchymal scarring. Subpleura l atelectasis/ consolidation in the lung bases right greater than left. Heart/Vascular Structures: Normal heart size. Trace pericardial effusion. Lymph Nodes: No adenopathy Pleura: No pleural effusion or significant pneumothorax. Musculoskeletal: No acute osseous abnormality. Soft tissues: Normal. Upper abdomen: Limited portions of the upper abdomen are unremarkable. IMPRESSION: 1. No pulmonary embolism. 2. Smoking related lung disease. Bibasilar consolidation. Superimposed pneumonia is not excluded. Clinical correlation and continued follow-up is recommended. HS:Y
[2024-04-04] MEDS: cefTRIAXone 1GM/50ML D5W 50 ML IV ONE (13:15)
--- NOTE | 2024-04-04 13:16 | DVHPN2 ---
Reviewed: Care Plan, H&P, Labs, Medications, Previous Orders, Radiology Changes from previous H/P or p: No Changes Objective Vitals Vital Signs Date Time Temp Pulse Resp B/P (MAP) Pulse Ox O2 Delivery O2 Flow Rate FiO2 04/04/24 08:09 97.8 60 20 112/67 (82) 99 97.8 04/04/24 06:15 Nasal Cannula 3.0 04/04/24 06:15 32 Medications Current Medications Medications Dose Ordered Sig/Katelynn Route Start Time Stop Time Status Last Admin Dose Admin Divalproex Sodium 500 mg BID PO 04/03/24 22:00 04/04/24 09:47 500 MG Azithromycin 250 ml @ 125 mls/hr DAILY IV 04/04/24 10:00 04/04/24 10:27 125 MLS/HR Donepezil HCl 5 mg HS PO 04/03/24 22:00 04/03/24 21:06 5 MG Aspirin 81 mg DAILY PO 04/04/24 10:00 04/04/24 09:47 81 MG Albuterol 2.5 mg Q6HPRN PRN NEB 04/03/24 20:00 Atorvastatin Calcium 20 mg HS PO 04/03/24 22:00 04/03/24 21:05 20 MG Temazepam 15 mg QHSP PRN PO 04/03/24 20:00 Ondansetron HCl 4 mg Q4HP PRN IV 04/03/24 20:00 Enoxaparin Sodium 40 mg DAILY SC 04/04/24 10:00 04/04/24 09:48 40 MG Acetaminophen 650 mg Q6HP PRN PO 04/03/24 20:00 Laboratory Results Laboratory Tests 04/04/24 06:48 Chemistry Test 04/03/24 15:40 04/04/24 06:48 Calcium Level 10.0 mg/dL (8.7-10.4) 9.8 mg/dL (8.7-10.4) Coagulation Test 04/03/24 22:31 D-Dimer, Quantitative 1.09 mg/L FEU (0.0-0.49) H Urinalysis Test 04/03/24 04:00 Urine Color Colorless (Yellow) Urine Clarity Turbid (Clear) H Urine pH 6.0 (5.0-9.0) Urine Specific [place] 1.015 (1.001-1.035) Urine Protein Negative (Negative) Urine Ketones Trace (Negative) Urine Blood Negative /uL (Negative) Urine Nitrite Negative (Negative) Urine Bilirubin Negative (Negative) Urine Urobilinogen Normal mg/dL (Negative) Urine Leukocyte Esterase Negative /uL (Negative) Urine RBC 1 /hpf (0 - 4) Urine WBC 3 /hpf (0 - 5) Urine Squamous Epithelial Cells Few /hpf (<5) Urine Amorphous Crystals Few /hpf (None Seen) Urine Bacteria Few /hpf (None Seen) H Urine Mucus Few (None Seen) Urine Glucose Normal mg/dL (Normal) Labs and/or images reviewed: Labs reviewed by me, Image(s) reviewed by me Assessment/Plan Assessment/Plan Acute hypoxic respiratory failure: Oxygen by nasal cannula Acute bilateral community-acquired pneumonia: Rocephin azithromycin Terri test negative Flu test neg Alzheimer dementia Aricept History of seizures:: Depakote History of [place] Depression Time Spent 55 minutes Patient is hospice revoked Patient is full code Advanced care planning time 20 mts Plan discussed with: Patient My Orders Orders - FARNAZ MEHTA MD Procedure Category Date Status Time Ceftriaxone Ivpb PHA 04/05/24 Verified Rocephin 09:00 Ceftriaxone Ivpb PHA 04/04/24 Verified Rocephin 13:15 Date of Service: Apr 04, 2024 Billing Provider: FARNAZ MEHTA MD Common Visit Codes: [id number] INP/OBS CARE(HIGH) Secondary Visit Codes: [id number] CARE PLAN 30 MINUTES FARNAZ MEHTA MD Apr 04, 2024 13:16
[2024-04-04] MEDS: ACETAMINOPHEN 325 MG TAB PO PRN (20:12)
[2024-04-05] VITALS (10 sets, daily range): BP systolic 109–125; BP diastolic 65–77; PULSE 54–69; RESP 14–20; TEMP 97.5–98.6; O2SAT 92–97
[2024-04-05] MEDS: cefTRIAXone 1GM/50ML D5W 50 ML IV SCH (09:03)
--- NOTE | 2024-04-05 11:22 | DVHPN2 ---
Reviewed: Care Plan, H&P, Labs, Medications, Previous Orders, Radiology Changes from previous H/P or p: No Changes Objective Vitals Vital Signs Date Time Temp Pulse Resp B/P (MAP) Pulse Ox O2 Delivery O2 Flow Rate FiO2 04/05/24 09:00 97.7 60 14 110/65 (80) 92 97.7 04/04/24 23:14 Nasal Cannula* 2 28 Intake/Output Intake and Output 04/05/24 07:00 Intake Total 1640 ml Output Total 1150 ml Balance 490 ml Intake Oral 1640 ml Output Urine Total 1150 ml Medications Current Medications Medications Dose Ordered Sig/Katelynn Route Start Time Stop Time Status Last Admin Dose Admin Divalproex Sodium 500 mg BID PO 04/03/24 22:00 04/05/24 10:44 500 MG Azithromycin 250 ml @ 125 mls/hr DAILY IV 04/04/24 10:00 04/04/24 10:27 125 MLS/HR Donepezil HCl 5 mg HS PO 04/03/24 22:00 04/04/24 21:32 5 MG Aspirin 81 mg DAILY PO 04/04/24 10:00 04/05/24 10:44 81 MG Albuterol 2.5 mg Q6HPRN PRN NEB 04/03/24 20:00 Atorvastatin Calcium 20 mg HS PO 04/03/24 22:00 04/04/24 21:32 20 MG Temazepam 15 mg QHSP PRN PO 04/03/24 20:00 Ondansetron HCl 4 mg Q4HP PRN IV 04/03/24 20:00 Enoxaparin Sodium 40 mg DAILY SC 04/04/24 10:00 04/05/24 10:44 40 MG Acetaminophen 650 mg Q6HP PRN PO 04/03/24 20:00 04/05/24 06:17 650 MG Ceftriaxone Sodium 50 ml @ 100 mls/hr DAILY@09 IV 04/05/24 09:00 04/05/24 09:03 100 MLS/HR Laboratory Results Laboratory Tests 04/04/24 06:48 Urinalysis Test 04/03/24 04:00 Urine Color Colorless (Yellow) Urine Clarity Turbid (Clear) H Urine pH 6.0 (5.0-9.0) Urine Specific [place] 1.015 (1.001-1.035) Urine Protein Negative (Negative) Urine Ketones Trace (Negative) Urine Blood Negative /uL (Negative) Urine Nitrite Negative (Negative) Urine Bilirubin Negative (Negative) Urine Urobilinogen Normal mg/dL (Negative) Urine Leukocyte Esterase Negative /uL (Negative) Urine RBC 1 /hpf (0 - 4) Urine WBC 3 /hpf (0 - 5) Urine Squamous Epithelial Cells Few /hpf (<5) Urine Amorphous Crystals Few /hpf (None Seen) Urine Bacteria Few /hpf (None Seen) H Urine Mucus Few (None Seen) Urine Glucose Normal mg/dL (Normal) Labs and/or images reviewed: Labs reviewed by me, Image(s) reviewed by me Assessment/Plan Assessment/Plan Acute hypoxic respiratory failure: Oxygen by nasal cannula Acute bilateral community-acquired pneumonia: Rocephin azithromycin blood cultures Terri test negative Flu test neg Alzheimer dementia Aricept History of seizures:: Depakote History of [place] Depression Time Spent 55 minutes Patient is hospice revoked Patient is full code Advanced care planning time 20 mts Spoke with pts daughter Oleg [phone]. Patient lives with her daughter Plan discussed with: Patient My Orders Orders - FARNAZ MEHTA MD Procedure Category Date Status Time Ceftriaxone 1gm/50ml PHA 04/05/24 In Process D5w (Rocephin) 09:00 Date of Service: Apr 05, 2024 Billing Provider: FARNAZ MEHTA MD Common Visit Codes: [id number] INP/OBS CARE(HIGH) Secondary Visit Codes: [id number] CARE PLAN 30 MINUTES FARNAZ MEHTA MD Apr 05, 2024 11:22
[2024-04-05] MEDS: NICOTINE 21MG/24 HR TOPICAL PATCH TD ONE (11:30)
[2024-04-05] MEDS: ALBUTEROL SULF 2.5 MG/0.5ML(0.5%) NEB SOLN NEB PRN (23:11)
[2024-04-06] VITALS (10 sets, daily range): BP systolic 113–141; BP diastolic 45–80; PULSE 58–73; RESP 14–18; TEMP 36.9; O2SAT 92–98
[2024-04-06] MEDS: NICOTINE 21MG/24 HR TOPICAL PATCH TD SCH (10:18)
--- NOTE | 2024-04-06 10:40 | DVHPN2 ---
Reviewed: Care Plan, H&P, Labs, Medications, Previous Orders, Radiology Changes from previous H/P or p: No Changes Objective Vitals Vital Signs Date Time Temp Pulse Resp B/P (MAP) Pulse Ox O2 Delivery O2 Flow Rate FiO2 04/06/24 08:52 98.6 73 16 124/76 (92) 93 98.6 04/06/24 08:32 Nasal Cannula 3.0 04/06/24 08:32 32 Intake/Output Intake and Output 04/06/24 07:00 Intake Total 220 ml Output Total 0 ml Balance 220 ml Intake Oral 220 ml Output Urine Total 0 ml # Voids 1 # Bowel Movements 1 Medications Current Medications Medications Dose Ordered Sig/Katelynn Route Start Time Stop Time Status Last Admin Dose Admin Divalproex Sodium 500 mg BID PO 04/03/24 22:00 04/06/24 10:17 500 MG Azithromycin 250 ml @ 125 mls/hr DAILY IV 04/04/24 10:00 04/06/24 10:17 125 MLS/HR Donepezil HCl 5 mg HS PO 04/03/24 22:00 04/05/24 21:02 5 MG Aspirin 81 mg DAILY PO 04/04/24 10:00 04/06/24 10:17 81 MG Albuterol 2.5 mg Q6HPRN PRN NEB 04/03/24 20:00 04/05/24 23:11 2.5 MG Atorvastatin Calcium 20 mg HS PO 04/03/24 22:00 04/05/24 21:02 20 MG Temazepam 15 mg QHSP PRN PO 04/03/24 20:00 Ondansetron HCl 4 mg Q4HP PRN IV 04/03/24 20:00 Enoxaparin Sodium 40 mg DAILY SC 04/04/24 10:00 04/06/24 10:17 40 MG Acetaminophen 650 mg Q6HP PRN PO 04/03/24 20:00 04/05/24 21:02 650 MG Ceftriaxone Sodium 50 ml @ 100 mls/hr DAILY@09 IV 04/05/24 09:00 04/06/24 08:25 100 MLS/HR Nicotine 1 patch DAILY TD 04/06/24 10:00 04/06/24 10:18 1 PATCH Laboratory Results Laboratory Tests 04/04/24 06:48 Urinalysis Test 04/03/24 04:00 Urine Color Colorless (Yellow) Urine Clarity Turbid (Clear) H Urine pH 6.0 (5.0-9.0) Urine Specific [place] 1.015 (1.001-1.035) Urine Protein Negative (Negative) Urine Ketones Trace (Negative) Urine Blood Negative /uL (Negative) Urine Nitrite Negative (Negative) Urine Bilirubin Negative (Negative) Urine Urobilinogen Normal mg/dL (Negative) Urine Leukocyte Esterase Negative /uL (Negative) Urine RBC 1 /hpf (0 - 4) Urine WBC 3 /hpf (0 - 5) Urine Squamous Epithelial Cells Few /hpf (<5) Urine Amorphous Crystals Few /hpf (None Seen) Urine Bacteria Few /hpf (None Seen) H Urine Mucus Few (None Seen) Urine Glucose Normal mg/dL (Normal) Labs and/or images reviewed: Labs reviewed by me, Image(s) reviewed by me Assessment/Plan Assessment/Plan Acute hypoxic respiratory failure: Oxygen by nasal cannula Acute bilateral community-acquired pneumonia: Rocephin azithromycin blood cultures Terri test negative Flu test neg Alzheimer dementia Aricept History of seizures:: Depakote History of [place] Depression Time Spent 55 minutes Patient is hospice revoked Patient is full code Advanced care planning time 20 mts Spoke with pts daughter Oleg [phone]. She [facility] IV Abx. Plan discussed with: Patient My Orders Orders - FARNAZ MEHTA MD Procedure Category Date Status Time Blood Culture JASON 04/05/24 In Process 11:23 Nicotine 21mg/24hr PHA 04/06/24 In Process (Nicoderm 21mg/24hr) 10:00 Date of Service: Apr 06, 2024 Billing Provider: FARNAZ MEHTA MD Common Visit Codes: [id number] INP/OBS CARE(HIGH) FARNAZ MEHTA MD Apr 06, 2024 10:40
--- NOTE | 2024-04-06 10:45 | DVHDS2 ---
Discharge Summary Date of Admission Apr 03, 2024 at 19:55 Date of Discharge: Apr 06, 2024 Admitting Diagnosis Altered mental status shortness of breath Wounds: None Labs/Diagnostic Data: Laboratory Results Test 04/04/24 06:48 04/03/24 22:31 04/03/24 04:00 04/03/24 02:30 White Blood Count 2.6 10^3/uL (4.4-10.8) Red Blood Count 4.58 10^6/uL (4.0-5.20) Hemoglobin 14.9 g/dL (12.2-16.2) Hematocrit 43.9 % (36.0-46.0) Mean Corpuscular Volume 95.9 fL (80.0-100.0) Mean Corpuscular Hemoglobin 32.6 pg (28.0-32.0) Mean Corpuscular Hemoglobin Concent 34.0 g/dL (32.0-36.0) Red Cell Distribution Width 15.0 % (11.8-14.3) Platelet Count 143 10^3/uL (140-450) Mean Platelet Volume 8.7 fL (6.9-10.8) Neutrophils (%) (Auto) 67.0 % (37.0-80.0) Lymphocytes (%) (Auto) 28.9 % (10.0-50.0) Monocytes (%) (Auto) 4.0 % (0.0-12.0) Eosinophils (%) (Auto) 0.0 % (0.0-7.0) Basophils (%) (Auto) 0.1 % (0.0-2.0) Neutrophils # (Auto) 1.8 10 ^3/uL (1.6-8.6) Lymphocytes # (Auto) 0.8 10 ^3/uL (0.4-5.4) Monocytes # (Auto) 0.1 10 ^3/uL (0-1.3) Eosinophils # (Auto) 0 10 ^3/uL (0-0.8) Basophils # (Auto) 0 10 ^3/uL (0-0.2) Nucleated Red Blood Cells 0.0 % Sodium Level 140 mmol/L (136-145) Potassium Level 4.1 mmol/L (3.5-5.1) Chloride Level 103 mmol/L (98-107) Carbon Dioxide Level 33 mmol/L (20-31) Anion Gap 4 (5-15) Blood Urea Nitrogen 13 mg/dL (9-23) Creatinine 0.68 mg/dL (0.550-1.02) Glomerular Filtration Rate Calc 94 mL/min (>90) BUN/Creatinine Ratio 19.1 (10.0-20.0) Serum Glucose 112 mg/dL (74-106) Calcium Level 9.8 mg/dL (8.7-10.4) D-Dimer, Quantitative 1.09 mg/L FEU (0.0-0.49) Troponin I High Sensitivity 9 ng/L (</=34) Urine Color Colorless (Yellow) Urine Clarity Turbid (Clear) Urine pH 6.0 (5.0-9.0) Urine Specific [place] 1.015 (1.001-1.035) Urine Protein Negative (Negative) Urine Ketones Trace (Negative) Urine Blood Negative /uL (Negative) Urine Nitrite Negative (Negative) Urine Bilirubin Negative (Negative) Urine Urobilinogen Normal mg/dL (Negative) Urine Leukocyte Esterase Negative /uL (Negative) Urine RBC 1 /hpf (0 - 4) Urine WBC 3 /hpf (0 - 5) Urine Squamous Epithelial Cells Few /hpf (<5) Urine Amorphous Crystals Few /hpf (None Seen) Urine Bacteria Few /hpf (None Seen) Urine Mucus Few (None Seen) Urine Glucose Normal mg/dL (Normal) Influenza Type A Antigen Negative (Negative) Influenza Type B Antigen Negative (Negative) SARS-CoV-2 Antigen (Rapid) Negative (NEGATIVE) Other Laboratory Tests 04/04/24 06:48 Brief Hx & Hospital Course: 68-year-old female with a history of Alzheimer's dementia seizures [place] depression came in for shortness of breaths generalized weakness and altered mental status found to have acute hypoxic respiratory failure secondary to pneumonia. Treated with Rocephin azithromycin Terri test negative flu test negative home medications Aricept and Depakote restarted. Patient at the time of discharge is on 2 L of oxygen by nasal cannula blood cultures pending pending discharged to [facility] facility to receive two weeks of IV antibiotics Rocephin azithromycin for pneumonia. Plan is acceptable with the patient's daughter Sabina. Consults/Reason for consult None Operations or Procedures CT head Condition at Discharge: Fair Final Diagnosis/Problems List Acute hypoxic respiratory failure: Oxygen by nasal cannula Acute bilateral community-acquired pneumonia: Rocephin azithromycin blood cultures Terri test negative Flu test neg Alzheimer dementia Aricept History of seizures:: Depakote History of [place] Depression Discharge Disposition: [facility] Facility Discharge Instruct/Medications Diet: Cardiac 2g Na,low cholest Activity: Light activity Follow Up/Referral: Follow up with the care home Medications: Rocephin 1 g IV daily for two weeks Azithromycin 500 mg IV daily for two weeks 35 (Time taken for discharge summary 35 minutes) Discharge Statement: "Patient was advised to return to the ER or call 911 if any headaches, dizziness, shortness of breath, chest pain, abdominal pain, bleeding, fevers, or worsening of medical condition. Patient was counseled about treatment plan, medications, possible side effects, patientverbalized understanding. All questions were answered to the best of my ability. This discharge took greater then 30 minutes in planning, reviewing documentation, counseling the patient, and discussing with other team members." ASSESSMENT ASSESSMENT Hospital Course Improved Assessment Acute hypoxic respiratory failure: Oxygen by nasal cannula Acute bilateral community-acquired pneumonia: Rocephin azithromycin blood cultures Terri test negative Flu test neg Alzheimer dementia Aricept History of seizures:: Depakote History of [place] Depression Date of Service: Apr 06, 2024 Billing Provider: FARNAZ MEHTA MD Common Visit Codes: [id number] DISCH DAY >30min FARNAZ MEHTA MD Apr 06, 2024 10:45
== END 2024-04-06 20:10 | DRG 177 ==
LOC: EDBD 14:52 → ER 14:52 → OVERFLOW 19:55 → EAST 04-04 18:20
PROVIDERS: ADMIT Family Medicine; ATTEND Family Medicine
PROC: 05HC33Z Insertion of Infusion Device into Left Basilic Vein, Percutaneous Approach (ICD-10-PCS; principal; 2024-04-06)
PROC: B54NZZA Ultrasonography of Left Upper Extremity Veins, Guidance (ICD-10-PCS; 2024-04-06)
DX: J15.69 Pneumonia due to other Gram-negative bacteria (principal); J96.01 Acute respiratory failure with hypoxia; J44.1 Chronic obstructive pulmonary disease with (acute) exacerbation; J44.0 Chronic obstructive pulmonary disease with (acute) lower respiratory infection; Z59.00 Homelessness unspecified; J15.9 Unspecified bacterial pneumonia; Z20.822 Contact with and (suspected) exposure to COVID-19; G30.9 Alzheimer's disease, unspecified; F32.A Depression, unspecified; I10 Essential (primary) hypertension; F15.10 Other stimulant abuse, uncomplicated; F12.10 Cannabis abuse, uncomplicated; F02.80 Dementia in other diseases classified elsewhere, unspecified severity, without behavioral disturbance, psychotic disturbance, mood disturbance, and anxiety; R56.9 Unspecified convulsions; F41.9 Anxiety disorder, unspecified; F17.210 Nicotine dependence, cigarettes, uncomplicated; Z79.899 Other long term (current) drug therapy; Z83.3 Family history of diabetes mellitus; Z82.49 Family history of ischemic heart disease and other diseases of the circulatory system; I25.2 Old myocardial infarction
CPT/HCPCS: 36415; 71045; 71275; 80048; 81001; 84484; 85025; 85379; 87040; 87426; 87804; 93005; 94640; 97163; 99291; 99292; G0378

== ENCOUNTER 2024-11-24 19:20 | Inpatient (IN) | payer OTHER, MEDICAID ==
[~2024-11-24] VITALS: Ht 167.6 cm; Wt 54.4 kg
--- NOTE | 2024-11-24 19:33 | ED.PDOC ---
History of Present Illness HPI Comments HPI: 69F BIBA w/ the c/c of generalized weakness. EMS was called out to a residential [facility] for pt not being able to get out of bed. On scene the pt had a SAT level of 99% on 2L NC. Denies Any other Symptoms. When I asked the patient. She said she has been weak for at least one-week. States that she is having decreased food intake. Possible episode of vomiting. Initial Vitals O2 Sat:99% on 2L NC Past Medical history: anxierty, COPD, Depression, GA, Normally on 2L NC of O2 Past Surgical history: Tonsillectomy, Tubal Ligation Medications: Social History: Denies smoking, ETOH, and drug use. Allergies: NKDA HPI: Poor Historian. REVIEW OF SYSTEMS: CONSTITUTIONAL: Denies acute: fever, diaphoresis, chills, HEAD: Denies acute: headache, photophobia Eyes: Denies acute: Double vision, vision loss, eye pain, eye discharge. EARS: Denies acute: tinnitus, hearing loss, ear discharge, ear pain, THROAT: Denies acute: sore throat, swelling, difficulty swallowing , pain with swallowing, change in voice. NECK: Denies acute: neck pain, neck swelling, stiff neck. HEART: Denies acute : chest pain, palpitations, LUNGS: Denies acute: SOB, wheezing, cough, hemoptysis ABDOMEN: Denies acute: abdominal pain, diarrhea, melena , hematemesis, hematochezia SKIN: Denies acute: rash, redness, lesions, itchiness. EXTREMITIES: Denies acute: calf pain, numbness, tingling, weakness, denies pain in extremity. Denies acute: Low back pain. Neuro: Denies acute: focal neurological deficit, motor or sensory focal neurological deficit, tremors, seizure like activity, confusion, dizziness, change in mental status, loss of bowel or bladder function, cauda equina like symptoms. : Denies acute: dysuria, hematuria, flank pain, increase in urinary frequency. PSYCH: Denies acute: hallucination, suicidal ideation, homicidal ideation. FEMALE: Denies acute: abnormal vaginal bleeding, foul odor, unusual discharge. PHYSICAL EXAM: General: -----[id number]---acute distress, awake and alert. Appears frail and weak Head: normocephalic, atraumatic. Neck: supple, trachea is midline, no swelling. Throat: Normal phonation. Dry oral mucosa Eyes:, no erythema, no purulent discharge, no proptosis, no icterus. Heart: regular rate, regular rhythm, no significant murmur appreciated. Lungs: no apparent respiratory distress, No wheezing, no rhonchi, no crackles. No stridors Clear to auscultation bilaterally. Abdomen: Mild nonspecific generalized tender to palpation, non distended, soft, no guarding, no rebound, + bowel sounds. Neuro: Awake, Alert, oriented to name, self, situation, follows commands GCS=15. Skin: no petechia, no purpura, no cyanosis, non-pale, not jaundice. Lower extremities: --no - Pitting edema no deformity, no focal swelling, no calf TTP. Makes eye contact. moves all four extremities. Face: no apparent facial droop. ED COURSE: DISCLAIMER: This medical document was created using an electronic medical record system with voice recognition software and computerized dictation system. Although this document has been carefully reviewed, there might still be some phonetic and typographical errors. Occasional wrong-word or "sound-alike" substitutions may have occurred due to the inherent limitations of voice recognition software. These areas are purely typographical due to imperfections of the software programs and do not reflect any compromise in the patient's medical care. Please read the chart carefully and recognize, using context, where these substitutions have occurred. Time Seen by MD: 19:30 Primary Care Provider: "I DON'T KNOW" Reviewed Notes: Nurses Notes, Medications, Allergies Allergies: Coded Allergies: NO KNOWN ALLERGIES (Unverified , 01/12/15) Home Meds Active Scripts Zinc Sulfate (Zinc) 220 Mg Cap, 220 MG PO Q24H for 15 Days, #15 CAP Prov:THANH EPPS MD 06/23/22 Cholecalciferol (Vitamin D3 Super Strength) 2,000 Unit Cap, 2000 UNIT PO Q24H for 15 Days, #15 CAP Prov:THANH EPPS MD 06/23/22 Ascorbic Acid (VITAMIN C TABLET) 500 Mg Tb, 1 TAB PO BID, #30 TAB Prov:THANH EPPS MD 06/23/22 Azithromycin (Zithromax Z-Tres) 250 Mg Tab, 250 MG PO Q24H for 6 Days, #6 TAB Prov:THANH EPPS MD 06/23/22 Dexamethasone (Decadron) 6 Mg Tab, 6 MG PO Q24H for 5 Days, #5 TAB Prov:THANH EPPS MD 06/23/22 Reported Medications Olanzapine (OLANZAPINE) 15 Mg Tab, 1 TAB PO DAILY 04/05/22 Atorvastatin Calcium (ATORVASTATIN CALCIUM) 20 Mg Tab, 1 TAB PO DAILY 04/05/22 Divalproex Sodium (Divalproex Sodium Dr) 125 Mg Tab, 1 TAB PO TID 04/05/22 Quetiapine Fumerate (QUETIAPINE FUMARATE) 25 Mg Tab, 3 TAB PO HS 04/05/22 Escitalopram Oxalate (ESCITALOPRAM OXALATE) 10 Mg Tab, 1.5 TAB PO DAILY 04/05/22 Information Source: Patient Past Medical History PAST MEDICAL HISTORY: Anxiety, COPD, Depression, GA Past Medical History (Other): Normally on 2L NC of O2 Surgical History: Tonsillectomy, Tubal Ligation DRIVER GUIDE History: No Pertinent DRIVER GUIDE History Family History Family History: Reviewed,noncontributory to illness, Unknown Social History Smoker: Unknown Alcohol: Unknown Drugs: Unknown Lives In: Homeless Was a procedure done? Was a procedure done?: No Differential Dx Considerations may include: Includes but not limited to thyroid disease, encephalopathy, electrolyte abnormality, sepsis, infection, intracranial pathology, drug adverse effects, arrhythmia, kidney insufficiency, ACS, CVA, malignancy, anemia X-Ray, Labs, Meds, VS Vital Signs Date Time Temp Pulse Resp B/P (MAP) Pulse Ox O2 Delivery O2 Flow Rate FiO2 11/24/24 23:23 97 Nasal Cannula* 2 11/24/24 23:23 97 Nasal Cannula 2.0 11/24/24 23:18 97.7 73 16 133/95 97 2.0 97.7 11/24/24 20:40 80 14 133/85 (101) 99 11/24/24 20:11 16 97 Nasal Cannula* 2 11/24/24 19:20 73 11/24/24 19:20 97.7 80 14 133/85 99 97.7 Lab Test 11/24/24 22:00 11/24/24 20:45 11/24/24 19:37 Range/Units Urine Color Colorless Yellow Urine Clarity Turbid H Clear Urine pH 7.0 5.0-9.0 Urine Specific [place] 1.010 1.001-1.035 Urine Protein Negative Negative Urine Ketones Negative Negative Urine Blood Negative Negative /uL Urine Nitrite 2+ H Negative Urine Bilirubin Negative Negative Urine Urobilinogen Normal Negative mg/dL Urine Leukocyte Esterase Negative Negative /uL Urine RBC 1 0 - 4 /hpf Urine Microscopic WBC 2 0-5 /HPF Urine Squamous Epithelial Cells Few <5 /hpf Urine Bacteria Few H None Seen /hpf Urine Glucose Normal Normal mg/dL Troponin I High Sensitivity 13 12 </=34 ng/L White Blood Count 5.2 4.4-10.8 10^3/uL Red Blood Count 4.32 4.0-5.20 10^6/uL Hemoglobin 14.3 12.2-16.2 g/dL Hematocrit 42.6 36.0-46.0 % Mean Corpuscular Volume 98.7 80.0-100.0 fL Mean Corpuscular Hemoglobin 33.1 H 28.0-32.0 pg Mean Corpuscular Hemoglobin Concent 33.5 32.0-36.0 g/dL Red Cell Distribution Width 15.3 H 11.8-14.3 % Platelet Count 113 L 140-450 10^3/uL Mean Platelet Volume 9.4 6.9-10.8 fL Neutrophils (%) (Auto) 46.7 37.0-80.0 % Lymphocytes (%) (Auto) 43.3 10.0-50.0 % Monocytes (%) (Auto) 8.8 0.0-12.0 % Eosinophils (%) (Auto) 1.0 0.0-7.0 % Basophils (%) (Auto) 0.2 0.0-2.0 % Neutrophils # (Auto) 2.4 1.6-8.6 10 ^3/uL Lymphocytes # (Auto) 2.2 0.4-5.4 10 ^3/uL Monocytes # (Auto) 0.5 0-1.3 10 ^3/uL Eosinophils # (Auto) 0.1 0-0.8 10 ^3/uL Basophils # (Auto) 0 0-0.2 10 ^3/uL Nucleated Red Blood Cells 0.1 % Sodium Level 144 136-145 mmol/L Potassium Level 4.6 3.5-5.1 mmol/L Chloride Level 111 H 98-107 mmol/L Carbon Dioxide Level 32 H 20-31 mmol/L Anion Gap 1 L 5-15 Blood Urea Nitrogen 10 9-23 mg/dL Creatinine 0.82 0.550-1.02 mg/dL Glomerular Filtration Rate Calc 77 >90 mL/min BUN/Creatinine Ratio 12.2 10.0-20.0 Serum Glucose 84 74-106 mg/dL Lactic Acid Level 1.5 0.4-2.0 mmol/L Calcium Level 9.0 8.7-10.4 mg/dL Magnesium Level 2.2 1.6-2.6 mg/dL Total Bilirubin 0.3 0.2-1.0 mg/dL Aspartate Amino Transferase (AST) 16 13-40 U/L Alanine Aminotransferase (ALT) 12 7-40 U/L Alkaline Phosphatase 50 46-116 U/L B-Type Natriuretic Peptide 86.68 0-100 pg/mL Total Protein 5.7 5.7-8.2 g/dL Albumin 3.6 3.2-4.8 g/dL [place] [id number] Ph: [phone] DIAGNOSTIC IMAGING Diagnostic Imaging Report : [id number] Signed PATIENT: COSMO MARAVILLA ACCT: [id number] UNIT: [id number] : 1955 LOC: ER ROOM / BED: / AGE / SEX: 69 / F ADM STATUS: REG ER SERVICE 24 ORDERING PHYSICIAN: MENDOZA LAWRENCE DO PROCEDURE(s): CXRP - CHEST PORTABLE REASON: GEN WEAK,SOB ORDER NUMBER(s): [id number], ACCESSION NUMBER(s): [id number] CHEST RADIOGRAPH REASON FOR EXAM: GEN WEAK,SOB COMPARISON: CT CT ANGIO CHEST CONTRAST on DOS: 04/04/24, XY CHEST PORTABLE on DOS: 04/03/24, XY CHEST PORTABLE on DOS: 06/20/22, CHEST XRAY 1 VIEW on DOS: 04/04/22, CXR1 on DOS: 04/04/22 TECHNIQUE: One view of the chest is provided FINDINGS: The cardiomediastinal silhouette is within normal limits for size. The lungs are hyperinflated consistent with emphysema. There is no focal airspace disease. Bilateral breast prostheses project over the chest. There is no large pleural effusion. There is no pneumothorax. No acute osseous abnormality is identified. IMPRESSION: Emphysematous changes. No focal airspace disease. ATED BY: FILIPE LOMBARDI MD DICTATED DATE/TIME: 11/24/242011 SIGNED BY: FILIPE LOMBARDI MD SIGNED DATE/TIME: 11/24/242011 CC: [place] [id number] Ph: [phone] DIAGNOSTIC IMAGING Diagnostic Imaging Report : [id number] Signed PATIENT: COSMO MARAVILLA ACCT: [id number] UNIT: [id number] : 1955 LOC: OVERFLOW ROOM / BED: [address] [place] [address] AGE / SEX: 69 / F ADM STATUS: ADM IN SERVICE 37 ORDERING PHYSICIAN: MENDOZA LAWRENCE DO PROCEDURE(s): HWOCT - HEAD WITHOUT CONTRAST REASON: ALOC/GEN WEAKNESS ORDER NUMBER(s): [id number], ACCESSION NUMBER(s): [id number] CT BRAIN WITHOUT CONTRAST HISTORY: ALOC/GEN WEAKNESS TECHNIQUE: Axial scans were obtained from the skull base through the vertex without contrast. Sagittal and coronal reformats were generated. One or more of the following radiation dose reduction techniques were used for this examination: automated exposure control, adjustment of the mA and/or kV according to patient size, use of iterative reconstruction technique. COMPARISON: CT HEAD W WO CONTRAST on DOS: 06/20/22, HEAD WITHOUT CONTRAST on DOS: 04/04/22 FINDINGS: Mild generalized cerebral atrophy. Patchy periventricular and subcortical white matter hypoattenuation is also again noted. No acute intracranial hemorrhage or evidence of large vessel territorial infarction identified at this time. No midline shift. The basilar cisterns are patent. Patchy mucosal thickening in the ethmoidal and right sphenoidal sinus. The mastoid air cells are clear. No grossly displaced calvarial abnormalities identified. IMPRESSION: No acute intracranial findings. Nonspecific white matter changes which may be sequelae of chronic microangiopathy. ATED BY: RUBEN SNOW MD DICTATED DATE/TIME: 11/25/2422 SIGNED BY: RUBEN SNOW MD SIGNED DATE/TIME: 11/25/2422 CC: [address] [id number] Ph: [phone] DIAGNOSTIC IMAGING Diagnostic Imaging Report : [id number] Signed PATIENT: COSMO MARAVILLA ACCT: [id number] UNIT: [id number] : 1955 LOC: OVERFLOW ROOM / BED: [address] [place] [address] / A AGE / SEX: 69 / F ADM STATUS: ADM IN SERVICE 39 ORDERING PHYSICIAN: MENDOZA LAWRENCE DO PROCEDURE(s): ABPL - CT AB PEL WO CON-NO ORAL OR IV REASON: n/v weak ORDER NUMBER(s): [id number], ACCESSION NUMBER(s): [id number] CT SCAN ABDOMEN AND PELVIS WITHOUT CONTRAST CLINICAL HISTORY: n/v weak TECHNIQUE: Helical axial images are obtained from the lung bases through the pelvis without oral contrast. No intravenous contrast was administered. Coronal and sagittal reformatted images were generated from thin section reconstruct ions. One or more of the following radiation dose reduction techniques were used for this examination: automated exposure control, adjustment of the mA and/or kV according to patient size, use of iterative reconstruction technique. COMPARISON: Correlation made to chest CT dated 04/04/2024 FINDINGS: LOWER THORAX: Emphysematous changes. Subpleural atelectasis / scarring again noted in the lower lobes. ABDOMEN AND PELVIS: Evaluation of visceral and vascular structures is limited due to lack of contrast administration. As visualized, the unenhanced liver, spleen, pancreas and adrenals appear grossly unremarkable. No sizable, radiopaque cholelithiasis or biliary ductal dilatation noted. No hydroureteronephrosis or sizable, obstructing urinary tract calculi identified. Aortoiliac atherosclerotic calcifications. No definite evidence of abdominal aortic aneurysm. Thickening versus underdistention of the stomach. No evidence of small-bowel obstruction. Visualized portions of the appendix appear normal caliber. Colonic diverticulosis without definite CT evidence of diverticulitis at this time. No free intraperitoneal air or fluid identified. No sizable bladder calculus. Grade 1 anterolisthesis of L5 on S1 with bilateral spondylolysis. IMPRESSION: No bowel obstruction, free intraperitoneal air/ fluid or sizable inflammatory collections identified on this noncontrast examination. Thickening versus underdistention of the stomach. Correlate for possible gastritis. Colonic diverticulosis without definite CT evidence of diverticulitis at this time. A few other findings as above. ATED BY: RUBEN SNOW MD DICTATED DATE/TIME: 11/25/2437 SIGNED BY: RUBEN SNOW MD SIGNED DATE/TIME: 11/25/2437 CC: [place] [id number] Ph: [phone] DIAGNOSTIC IMAGING Diagnostic Imaging Report : [id number] Signed PATIENT: COSMO MARAVILLA ACCT: [id number] UNIT: [id number] : 1955 LOC: ER ROOM / BED: / AGE / SEX: 69 / F ADM STATUS: REG ER SERVICE 24 ORDERING PHYSICIAN: MENDOZA LAWRENCE DO PROCEDURE(s): CXRP - CHEST PORTABLE REASON: GEN WEAK,SOB ORDER NUMBER(s): [id number], ACCESSION NUMBER(s): [id number] CHEST RADIOGRAPH REASON FOR EXAM: GEN WEAK,SOB COMPARISON: CT CT ANGIO CHEST CONTRAST on DOS: 04/04/24, XY CHEST PORTABLE on DOS: 04/03/24, XY CHEST PORTABLE on DOS: 06/20/22, CHEST XRAY 1 VIEW on DOS: 04/04/22, CXR1 on DOS: 04/04/22 TECHNIQUE: One view of the chest is provided FINDINGS: The cardiomediastinal silhouette is within normal limits for size. The lungs are hyperinflated consistent with emphysema. There is no focal airspace disease. Bilateral breast prostheses project over the chest. There is no large pleural effusion. There is no pneumothorax. No acute osseous abnormality is identified. IMPRESSION: Emphysematous changes. No focal airspace disease. ATED BY: FILIPE LOMBARDI MD DICTATED DATE/TIME: 11/24/242011 SIGNED BY: FILIPE LOMBARDI MD SIGNED DATE/TIME: 11/24/242011 CC: Time of 1ST Reevaluation: 20:00 Reevaluation 1ST: Unchanged Patient Education/Counseling: Diagnosis Family Education/Counseling: No Family Present Comments The care of this patient was transitioned to my colleague Dr. Boyd. CT scan of the abdomen and pelvis still pending. Patient is excessively weak. Patient will be admitted to the hospital for further evaluation and treatment. SEPSIS Sepsis Screen Physician Orders Jr. Systems Administrator (11/24/24 ) Chest Portable (11/24/24 19:25) Electrocardigram (11/24/24 19:25) Ct Ab Pel Wo Con-No Oral Or Iv (11/24/24 19:40) Head Without Contrast (11/24/24 22:38) Atorvastatin (Lipitor) (11/25/24 22:00) Quetiapine Fumarate Tablet (Seroquel Tab (11/25/24 22:00) Albuterol Medneb (Ventolin Medneb) (11/24/24 23:00) Ipratropium Medneb (Atrovent Medneb) (11/24/24 23:00) Olanzapine Tablet (Zyprexa Tablet) (11/25/24 10:00) Divalproex Dr Tablet (Depakote "Dr" Tabl (11/25/24 10:00) Allergies (11/24/24 22:52) Code Status (11/24/24 22:52) Sodium Chloride Lock (Saline Lock Ns) (11/25/24 06:00) Oxygen Per Hour (11/24/24 22:52) Hydrocodone-Acet 5/325mg Tab ([place] 5/32 (11/24/24 23:00) Ondansetron Hcl (Zofran) (11/24/24 23:00) Docusate Sodium Capsule (Colace Capsule) (11/24/24 23:00) Cardiac Diet-2gna,Lofat,Lochol (11/25/24 Breakfast) Condition: Serious (11/24/24 22:52) Acetaminophen Tablet (Tylenol Tablet) (11/24/24 23:00) Maintain Bed Rest (11/24/24 22:52) Sequential Compression Device (11/24/24 ) Vital Signs Date Time Temp Pulse Resp B/P (MAP) Pulse Ox O2 Delivery O2 Flow Rate FiO2 11/24/24 23:23 97 Nasal Cannula* 2 28 11/24/24 23:23 97 Nasal Cannula 2.0 11/24/24 23:18 97.7 73 16 133/95 97 2.0 97.7 11/24/24 20:40 80 14 133/85 (101) 99 11/24/24 20:11 16 97 Nasal Cannula* 2 28 11/24/24 19:20 73 11/24/24 19:20 97.7 80 14 133/85 99 97.7 Laboratory Tests Test 11/24/24 19:37 Lactic Acid Level 1.5 mmol/L (0.4-2.0) White Blood Count 5.2 10^3/uL (4.4-10.8) Departure 1 Departure Time of Disposition: 22:35 Impression: Primary Impression: Generalized weakness Additional Impression: UTI (urinary tract infection) Disposition: ADMITTED INPATIENT Admit to: [facility] Condition: Guarded Discharged With: Self Critical Care Note Critical Care Time?: No Heart Score Heart Score: Heart Score Response (Comments) Value History N/A 0 EKG N/A 0 Age N/A 0 Risk Factors N/A 0 Troponin N/A 0 Total 0 I personally scribed for MENDOZA LAWRENCE DO ([email or web address]) on 11/24/24 at 19:33. Electronically submitted by Sigifredo Rodrigez ([employer]). I personally scribed for MENDOZA LAWRENCE DO (DVFARMI) on 11/24/24 at 20:46. Electronically submitted by Sigifredo Rodrigez ([employer]). I personally scribed for MENDOZA LAWRENCE DO ([email or web address]) on 11/24/24 at 21:33. Electronically submitted by Sigifredo Rodrigez ([employer]). MENDOZA LAWRENCE DO Nov 24, 2024 19:33
[2024-11-24 20:03] LABS: Hematocrit 42.6 % (36.0-46.0); Hemoglobin 14.3 g/dL (12.2-16.2); Mean Corpuscular Hemoglobin 33.1 pg (28.0-32.0); Mean Corpuscular Volume 98.7 fL (80.0-100.0); Nucleated Red Blood Cells % 0.1 %
--- NOTE | 2024-11-24 20:14 | DVH ---
CHEST RADIOGRAPH REASON FOR EXAM: GEN WEAK,SOB COMPARISON: CT CT ANGIO CHEST CONTRAST on DOS: 04/04/24, XY CHEST PORTABLE on DOS: 04/03/24, XY CHEST POR TABLE on DOS: 06/20/22, CHEST XRAY 1 VIEW on DOS: 04/04/22, CXR1 on DOS: 04/04/22 TECHNIQUE: One view of the chest is provided FINDINGS: The cardiomediastinal silhouette is within normal limits for size. The lungs are hyperinfla kailash consistent with emphysema. There is no focal airspace disease. Bilateral breast prostheses projec t over the chest. There is no large pleural effusion. There is no pneumothorax. No acute osseous abn ormality is identified. IMPRESSION: Emphysematous changes. No focal airspace disease.
[2024-11-24] MEDS: SODIUM CHLORIDE 0.9% 1,000 ML IV ONE (20:15)
[2024-11-24 20:19] LABS: Alanine Aminotransferase 12 U/L (7-40); Albumin 3.6 g/dL (3.2-4.8); Alkaline Phosphatase 50 U/L (46-116); Anion Gap 1 (5-15); BUN/Creatinine Ratio 12.2 (10.0-20.0); Blood Urea Nitrogen 10 mg/dL (9-23); Calcium 9.0 mg/dL (8.7-10.4); Glucose 84 mg/dL (74-106); Potassium 4.6 mmol/L (3.5-5.1); Sodium 144 mmol/L (136-145); Total Protein 5.7 g/dL (5.7-8.2)
[2024-11-24 20:20] LABS: Bilirubin, Total 0.3 mg/dL (0.2-1.0)
[2024-11-24] MEDS: ALBUTEROL SULF 2.5 MG/0.5ML(0.5%) NEB SOLN NEB ONE (20:20)
[2024-11-24] MEDS: IPRATROPIUM BROM 0.5 MG/2.5ML INH SOL NEB ONE (20:21)
[2024-11-24 20:22] LABS: Carbon Dioxide 32 mmol/L (20-31); Chloride 111 mmol/L (98-107)
[2024-11-24 22:51] LABS: Urine Protein, UAD Negative (Negative)
[2024-11-24] MEDS ORDERED: ONDANSETRON HCL 4 MG/2 ML VIAL IV PRN (23:00)
[2024-11-24] MEDS ORDERED: DOCUSATE SOD 100 MG CAP PO PRN (23:00)
[2024-11-24 23:18] VITALS: BP 133/95; PULSE 73; RESP 16; TEMP 97.7; O2SAT 97
--- NOTE | 2024-11-24 23:21 | ECG ---
[facility] Test Date: 2024-11-24 Test Time: 19:17:03 Pat Name: COSMO MARAVILLA Department: Room: 0279T Gender: F Shoe Sprayer: NICOLASA : 1955 Requested By: MENDOZA LAWRENCE Order Number: [id number] Reading MD: Jameson Greco Measurements Intervals [place] Rate: 73 P: 86 MO: 134 QRS: 91 QRSD: 83 T: 66 QT: 367 QTc: 405 Interpretive Statements Sinus rhythm Probable left atrial enlargement Right axis deviation Minimal ST elevation, anterior leads Electronically Signed On 11-25-2024 16:45:11 PDT by Jameson Greco Please click the below link to view image of tracing.
[2024-11-24 23:23] VITALS: O2SAT 97
--- NOTE | 2024-11-24 23:44 | DVHHP2 ---
History of Present Illness Reason for Visit: Generalized weakness History of Present Illness The patient is a 69-year-old female with past medical history of anxiety, COPD, depression, and NH who presented to [facility] ED for evaluation of generalized weakness. Patient was picked up at a residential [facility] facility for being unable to get out of bed. Patient reports feeling very weak for the last 1 week, decreased appetite, episodes of vomiting. Patient was seen and evaluated in the ED, laboratory data shows WBC 5.2, platelets 113, sodium 144, potassium 4.6, BUN 10, creatinine 0.82, glucose 84, calcium 9.0, troponin 12, BNP 86.68, blood pressure 133/85, heart rate 80, temperature 97.7 F, O2 saturation 97% on oxygen. Head CT showed no acute intracranial findings. Please see medication orders section in the computer. On my assessment, patient denied chest pain, no headache, no dizziness, currently on oxygen, no diaphoresis, no nausea, no vomiting, no fever, no chills. Patient was admitted for further evaluation and medical management. Past Medical History Anxiety, COPD, Depression, NH Past Surgical History Tonsillectomy, Tubal Ligation Family History Reviewed, noncontributory to the management of this case. Past Social History The patient lives at home, denies smoking, alcohol or illicit drugs abuse. Review of Systems Constitutional: Yes: Weakness; No: Fever, Chills, Sweats, Malaise, Other Eyes: No: Pain, Vision change, Conjunctivae inflammation, Eyelid inflammation, Other, Redness ENT: No: Ear pain, Ear discharge, Nose pain, Nose discharge, Nose congestion, Mouth pain, Mouth swelling, Throat pain, Throat swelling, Other Respiratory: Shortness of breath; No: Cough, Dry, SOB with excertion, Wheezing, Hemoptysis, Pleuritic Pain, Sputum, Wheezing, Other Cardiovascular: No: Chest Pain, Palpitations, Orthopnea, Paroxysmal Noc. Dyspnea, Edema, Lt Headedness, Other Gastrointestinal: No: Nausea, Vomiting, Abdominal Pain, Diarrhea, Constipation, Melena, Hematochezia, Other Genitourinary: No Dysuria, No Frequency, No Incontinence, No Hematuria, No Retention, No Other Musculoskeletal: No: other, neck pain, shoulder pain, arm pain, back pain, hand pain, leg pain, foot pain Skin: No: Rash, Lesions, Jaundice, Bruising, Other Neurological: No: Weakness, Numbness, Incoordination, Change in speech, Confusion, Seizures, Other Allergies: Coded Allergies: NO KNOWN ALLERGIES (Unverified , 01/12/15) Medications Current Medications Medications Dose Ordered Sig/Katelynn Route Start Time Stop Time Status Last Admin Dose Admin Atorvastatin Calcium 20 mg HS PO 11/25/24 22:00 Quetiapine Fumarate 25 mg HS PO 11/25/24 22:00 Albuterol 2.5 mg Q4HPRN PRN NEB 11/24/24 23:00 Ipratropium Melissa 0.5 mg Q4HPRN PRN NEB 11/24/24 23:00 Olanzapine 15 mg DAILY PO 11/25/24 10:00 Divalproex Sodium 250 mg BID PO 11/25/24 10:00 Sodium Chloride 10 ml Q8HR IV 11/25/24 06:00 Acetaminophen/ Hydrocodone Bitart 1 tab Q4HP PRN PO 11/24/24 23:00 Ondansetron HCl 4 mg Q4HP PRN IV 11/24/24 23:00 Docusate Sodium 100 mg BIDPRN PRN PO 11/24/24 23:00 Acetaminophen 650 mg Q6HP PRN PO 11/24/24 23:00 Exam Vital Signs Vital Signs Date Time Temp Pulse Resp B/P (MAP) Pulse Ox O2 Delivery O2 Flow Rate FiO2 11/24/24 23:23 97 Nasal Cannula* 2 28 11/24/24 23:18 97.7 73 16 133/95 97.7 General Appearance: Alert, Oriented X3, Cooperative, No acute distress HEENT: Atraumatic, PERRLA, EOMI, Mucous membr. moist/pink Respiratory: Normal air movement Cardiovascular: Regular rate, Normal S1, Normal S2, No murmurs Abdominal: Normal bowel sounds, Soft, No tenderness, No hepatospenomegaly, No masses Extremities: No clubbing, No cyanosis, No edema, Normal pulses, No tenderness/swelling Skin: No rashes, No significant lesion Neuro: Normal speech, Normal tone, Sensation intact, Cranial nerves 3-12 NL, Reflexes 2+, Other (Generalized weakness) Psych/Mental Status: Mental status NL, Mood NL Labs/Xrays Labs Test 11/24/24 22:00 11/24/24 20:45 8/29/25 19:37 Range/Units Urine Color Colorless Yellow Urine Clarity Turbid H Clear Urine pH 7.0 5.0-9.0 Urine Specific [place] 1.010 1.001-1.035 Urine Protein Negative Negative Urine Ketones Negative Negative Urine Blood Negative Negative /uL Urine Nitrite 2+ H Negative Urine Bilirubin Negative Negative Urine Urobilinogen Normal Negative mg/dL Urine Leukocyte Esterase Negative Negative /uL Urine RBC 1 0 - 4 /hpf Urine Microscopic WBC 2 0-5 /HPF Urine Squamous Epithelial Cells Few <5 /hpf Urine Bacteria Few H None Seen /hpf Urine Glucose Normal Normal mg/dL Troponin I High Sensitivity 13 </=34 ng/L White Blood Count 5.2 4.4-10.8 10^3/uL Red Blood Count 4.32 4.0-5.20 10^6/uL Hemoglobin 14.3 12.2-16.2 g/dL Hematocrit 42.6 36.0-46.0 % Mean Corpuscular Volume 98.7 80.0-100.0 fL Mean Corpuscular Hemoglobin 33.1 H 28.0-32.0 pg Mean Corpuscular Hemoglobin Concent 33.5 32.0-36.0 g/dL Red Cell Distribution Width 15.3 H 11.8-14.3 % Platelet Count 113 L 140-450 10^3/uL Mean Platelet Volume 9.4 6.9-10.8 fL Neutrophils (%) (Auto) 46.7 37.0-80.0 % Lymphocytes (%) (Auto) 43.3 10.0-50.0 % Monocytes (%) (Auto) 8.8 0.0-12.0 % Eosinophils (%) (Auto) 1.0 0.0-7.0 % Basophils (%) (Auto) 0.2 0.0-2.0 % Neutrophils # (Auto) 2.4 1.6-8.6 10 ^3/uL Lymphocytes # (Auto) 2.2 0.4-5.4 10 ^3/uL Monocytes # (Auto) 0.5 0-1.3 10 ^3/uL Eosinophils # (Auto) 0.1 0-0.8 10 ^3/uL Basophils # (Auto) 0 0-0.2 10 ^3/uL Nucleated Red Blood Cells 0.1 % Sodium Level 144 136-145 mmol/L Potassium Level 4.6 3.5-5.1 mmol/L Chloride Level 111 H 98-107 mmol/L Carbon Dioxide Level 32 H 20-31 mmol/L Anion Gap 1 L 5-15 Blood Urea Nitrogen 10 9-23 mg/dL Creatinine 0.82 0.550-1.02 mg/dL Glomerular Filtration Rate Calc 77 >90 mL/min BUN/Creatinine Ratio 12.2 10.0-20.0 Serum Glucose 84 74-106 mg/dL Lactic Acid Level 1.5 0.4-2.0 mmol/L Calcium Level 9.0 8.7-10.4 mg/dL Magnesium Level 2.2 1.6-2.6 mg/dL Total Bilirubin 0.3 0.2-1.0 mg/dL Aspartate Amino Transferase (AST) 16 13-40 U/L Alanine Aminotransferase (ALT) 12 7-40 U/L Alkaline Phosphatase 50 46-116 U/L B-Type Natriuretic Peptide 86.68 0-100 pg/mL Total Protein 5.7 5.7-8.2 g/dL Albumin 3.6 3.2-4.8 g/dL PATIENT: COSMO MARAVILLA ACCT: [id number] UNIT: [id number] : 1955 LOC: OVERFLOW ROOM / BED: [address] [place] [address] AGE / SEX: 69 / F ADM STATUS: ADM IN SERVICE 39 ORDERING PHYSICIAN: MENDOZA LAWRENCE DO PROCEDURE(s): ABPL - CT AB PEL WO CON-NO ORAL OR IV REASON: n/v weak ORDER NUMBER(s): [id number], ACCESSION NUMBER(s): [id number] CT SCAN ABDOMEN AND PELVIS WITHOUT CONTRAST CLINICAL HISTORY: n/v weak TECHNIQUE: Helical axial images are obtained from the lung bases through the pelvis without oral contrast. No intravenous contrast was administered. Coronal and sagittal reformatted images were generated from thin section recons tructions. One or more of the following radiation dose reduction techniques were used for this examination: automated exposure control, adjustment of the mA and/or kV according to patient size, use of iterative reconstruction technique. COMPARISON: Correlation made to chest CT dated 04/04/2024 FINDINGS: LOWER THORAX: Emphysematous changes. Subpleural atelectasis / scarring again noted in the lower lobes. ABDOMEN AND PELVIS: Evaluation of visceral and vascular structures is limited due to lack of contrast administration. As visualized, the unenhanced liver, spleen, pancreas and adrenals appear grossly unremarkable. No sizable, radiopaque cholelithiasis or biliary ductal dilatation noted. No hydroureteronephrosis or sizable, obstructing urinary tract calculi identified. Aortoiliac atherosclerotic calcifications. No definite evidence of abdominal aortic aneurysm. Thickening versus underdistention of the stomach. No evidence of small-bowel obstruction. Visualized portions of the appendix appear normal caliber. Colonic diverticulosis without definite CT evidence of diverticulitis at this time. No free intraperitoneal air or fluid identified. No sizable bladder calculus. Grade 1 anterolisthesis of L5 on S1 with bilateral spondylolysis. IMPRESSION: No bowel obstruction, free intraperitoneal air/ fluid or sizable inflammatory collections identified on this noncontrast examination. Thickening versus underdistention of the stomach. Correlate for possible gastritis. Colonic diverticulosis without definite CT evidence of diverticulitis at this time. A few other findings as above. ORDERING PHYSICIAN: MENDOZA LAWRENCE DO PROCEDURE(s): HWOCT - HEAD WITHOUT CONTRAST REASON: ALOC/GEN WEAKNESS ORDER NUMBER(s): [id number], ACCESSION NUMBER(s): [id number] CT BRAIN WITHOUT CONTRAST HISTORY: ALOC/GEN WEAKNESS TECHNIQUE: Axial scans were obtained from the skull base through the vertex without contrast. Sagittal and coronal reformats were generated. One or more of the following radiation dose reduction techniques were used for this examination: automated exposure control, adjustment of the mA and/or kV according to patient size, use of iterative reconstruction technique. COMPARISON: CT HEAD W WO CONTRAST on DOS: 06/20/22, HEAD WITHOUT CONTRAST on DOS: 04/04/22 FINDINGS: Mild generalized cerebral atrophy. Patchy periventricular and subcortical white matter hypoattenuation is also again noted. No acute intracranial hemorrhage or evidence of large vessel territorial infarction identified at this time. No midline shift. The basilar cisterns are patent. Patchy mucosal thickening in the ethmoidal and right sphenoidal sinus. The mastoid air cells are clear. No grossly displaced calvarial abnormalities identified. IMPRESSION: No acute intracranial findings. Nonspecific white matter changes which may be sequelae of chronic microangiopathy. ORDERING PHYSICIAN: MENDOZA LAWRENCE DO PROCEDURE(s): CXRP - CHEST PORTABLE REASON: GEN WEAK,SOB ORDER NUMBER(s): [id number], ACCESSION NUMBER(s): [id number] CHEST RADIOGRAPH REASON FOR EXAM: GEN WEAK,SOB COMPARISON: CT CT ANGIO CHEST CONTRAST on DOS: 04/04/24, XY CHEST PORTABLE on DOS: 04/03/24, XY CHEST PORTABLE on DOS: 06/20/22, CHEST XRAY 1 VIEW on DOS: 04/04/22, CXR1 on DOS: 04/04/22 TECHNIQUE: One view of the chest is provided FINDINGS: The cardiomediastinal silhouette is within normal limits for size. The lungs are hyperinflated consistent with emphysema. There is no focal airspace disease. Bilateral breast prostheses project over the chest. There is no large pleural effusion. There is no pneumothorax. No acute osseous abnormality is identified. IMPRESSION: Emphysematous changes. No focal airspace disease. SEPSIS Sepsis Screen Date sepsis recognized/suspect: Nov 24, 2024 Time Sepsis recognized/suspect: 2039 Recent Procedure: No On Antibiotic Therapy: No Respiratory Rate >20: No Heart Rate >90: No Temp<36 C (96.8 F) or >38.3 C: No SBP <90 or MAP <65 mmHG: No New Acute Mental Status Change: No Is the patient on CPAP, BIPAP,: No Physician Orders People Manager (11/24/24 ) Chest Portable (11/24/24 19:25) Ct Ab Pel Wo Con-No Oral Or Iv (11/24/24 19:40) Head Without Contrast (11/24/24 22:38) Atorvastatin (Lipitor) (11/25/24 22:00) Quetiapine Fumarate Tablet (Seroquel Tab (11/25/24 22:00) Albuterol Medneb (Ventolin Medneb) (11/24/24 23:00) Ipratropium Medneb (Atrovent Medneb) (11/24/24 23:00) Olanzapine Tablet (Zyprexa Tablet) (11/25/24 10:00) Divalproex Dr Tablet (Depakote "Dr" Tabl (11/25/24 10:00) Allergies (11/24/24 22:52) Code Status (11/24/24 22:52) Sodium Chloride Lock (Saline Lock Ns) (11/25/24 06:00) Oxygen Per Hour (11/24/24 22:52) Hydrocodone-Acet 5/325mg Tab (Cuddy 5/32 (11/24/24 23:00) Ondansetron Hcl (Zofran) (11/24/24 23:00) Docusate Sodium Capsule (Colace Capsule) (11/24/24 23:00) Fall Risk Precautions In Place QSHIFT (11/24/24 22:52) Complete Blood Count (11/25/24 04:00) Comprehensive Metabolic Panel (11/25/24 04:00) Cardiac Diet-2gna,Lofat,Lochol (11/25/24 Breakfast) Condition: Serious (11/24/24 22:52) Acetaminophen Tablet (Tylenol Tablet) (11/24/24 23:00) Maintain Bed Rest (11/24/24 22:52) Sequential Compression Device (11/24/24 ) Vital Signs Date Time Temp Pulse Resp B/P (MAP) Pulse Ox O2 Delivery O2 Flow Rate FiO2 11/24/24 23:23 97 Nasal Cannula* 2 28 11/24/24 23:23 97 Nasal Cannula 2.0 11/24/24 23:18 97.7 73 16 133/95 97 2.0 97.7 11/24/24 20:40 80 14 133/85 (101) 99 11/24/24 20:11 16 97 Nasal Cannula* 2 28 11/24/24 19:20 73 11/24/24 19:20 97.7 80 14 133/85 99 97.7 Laboratory Tests Test 11/24/24 19:37 Lactic Acid Level 1.5 mmol/L (0.4-2.0) White Blood Count 5.2 10^3/uL (4.4-10.8) Medications Medications Dose Ordered Sig/Katelynn Route Start Time Stop Time Status Last Admin Dose Admin Albuterol 2.5 mg ONCE ONCE NEB 11/24/24 20:00 11/24/24 20:01 DC 11/24/24 20:20 2.5 MG Ipratropium Melissa 1 mg ONCE ONCE NEB 11/24/24 20:00 11/24/24 20:01 DC 11/24/24 20:21 1 MG Sodium Chloride 1,000 ml @ 1,000 mls/hr Q1H ONCE IV 11/24/24 20:00 11/24/24 20:59 DC 11/24/24 20:15 1,000 MLS/HR Assessment/Plan Assessment/Plan Generalized weakness Acute respiratory failure with hypoxia Plan 1. Admit to telemetry unit 2. Breathing treatment 3. Pain control management 4. Management of fluids and electrolytes 5. Consultation for hospitalist 6. Diagnostic tests chest x-ray 7. DVT prophylaxis-on SCDs 8. Repeat labs CBC, CMP in a.m. 9. Continue with current medical management 10. Treatment plan discussed with patient and RN. Patient verbalized understanding. Plan discussed with: Patient, Other (RN) My Orders Orders - MARY العلي DNP Procedure Category Date Status Time Atorvastatin (Lipitor) PHA 11/25/24 In Process 22:00 Quetiapine Fumarate PHA 11/25/24 In Process Tablet (Seroquel Tab 22:00 Albuterol Medneb PHA 11/24/24 In Process (Ventolin Medneb) 23:00 Ipratropium Medneb PHA 11/24/24 In Process (Atrovent Medneb) 23:00 Olanzapine Tablet PHA 11/25/24 In Process (Zyprexa Tablet) 10:[address] Tablet PHA 11/25/24 In Process (Depakote "Dr" Tabl 10:00 Allergies VIKA 11/24/24 In Process 22:52 Code Status CODE 11/24/24 Transmitted 22:52 Sodium Chloride Lock PHA 11/25/24 In Process (Saline Lock Ns) 06:00 Oxygen Per Hour RT 11/24/24 Transmitted 22:52 Hydrocodone-Acet PHA 11/24/24 In Process 5/325mg Tab (Cuddy 23:00 Ondansetron Hcl PHA 11/24/24 In Process (Zofran) 23:00 Docusate Sodium PHA 11/24/24 In Process Capsule (Colace 23:00 Fall Risk Precautions VIKA 11/24/[address] 22:52 Complete Blood Count LAB 11/25/24 Verified 04:00 Comprehensive LAB 11/25/24 Verified Metabolic Panel 04:00 Cardiac DIET 11/25/24 Transmitted Diet-2gna,Lofat,Lochol Breakfast Condition: Serious VIKA 11/24/24 In Process 22:52 Acetaminophen Tablet PHA 11/24/24 In Process (Tylenol Tablet) 23:00 Maintain Bed Rest VIKA 11/24/24 In Process 22:52 Sequential VIKA 11/24/24 In Process Compression Device Problem List: (1) Generalized weakness (2) Acute respiratory failure with hypoxia Date of Service: Nov 24, 2024 Billing Provider: MARY العلي DNP Common Visit Codes: [id number] INP/OBS CARE (HIGH) MARY العلي DNP Nov 24, 2024 23:44
[2024-11-24] MEDS ORDERED: MORPHINE SULFATE INJ 2 MG/ml SYRG IV PRN (23:45)
[2024-11-24] MEDS ORDERED: NITROGLYCERIN 0.4 MG SL TAB SL PRN (23:45)
[2024-11-25] VITALS (14 sets, daily range): BP systolic 150–188; BP diastolic 92–99; PULSE 68–121; RESP 16–22; TEMP 97.6–98.4; O2SAT 96–100
--- NOTE | 2024-11-25 00:25 | DVH ---
CT BRAIN WITHOUT CONTRAST HISTORY: ALOC/GEN WEAKNESS TECHNIQUE: Axial scans were obtained from the skull base through the vertex without contrast. Sagitta l and coronal reformats were generated. One or more of the following radiation dose reduction techniq ues were used for this examination: automated exposure control, adjustment of the mA and/or kV accord ing to patient size, use of iterative reconstruction technique. COMPARISON: CT HEAD W WO CONTRAST on DOS: 06/20/22, HEAD WITHOUT CONTRAST on DOS: 04/04/22 FINDINGS: Mild generalized cerebral atrophy. Patchy periventricular and subcortical white matter hypoattenuatio n is also again noted. No acute intracranial hemorrhage or evidence of large vessel territorial infarction identified at thi s time. No midline shift. The basilar cisterns are patent. Patchy mucosal thickening in the ethmoidal and right sphenoidal sinus. The mastoid air cells are marvin ar. No grossly displaced calvarial abnormalities identified. IMPRESSION: No acute intracranial findings. Nonspecific white matter changes which may be sequelae of chronic microangiopathy.
--- NOTE | 2024-11-25 00:40 | DVH ---
CT SCAN ABDOMEN AND PELVIS WITHOUT CONTRAST CLINICAL HISTORY: n/v weak TECHNIQUE: Helical axial images are obtained from the lung bases through the pelvis without oral cont rast. No intravenous contrast was administered. Coronal and sagittal reformatted images were generate d from thin section reconstructions. One or more of the following radiation dose reduction techniques were used for this examination: automated exposure control, adjustment of the mA and/or kV according to patient size, use of iterative reconstruction technique. COMPARISON: Correlation made to chest CT dated 04/04/2024 FINDINGS: LOWER THORAX: Emphysematous changes. Subpleural atelectasis / scarring again noted in the lower lobes. ABDOMEN AND PELVIS: Evaluation of visceral and vascular structures is limited due to lack of contrast administration. As visualized, the unenhanced liver, spleen, pancreas and adrenals appear grossly unremarkable. No si zable, radiopaque cholelithiasis or biliary ductal dilatation noted. No hydroureteronephrosis or sizable, obstructing urinary tract calculi identified. Aortoiliac atherosclerotic calcifications. No definite evidence of abdominal aortic aneurysm. Thickening versus underdistention of the stomach. No evidence of small-bowel obstruction. Visualized portions of the appendix appear normal caliber. Colonic diverticulosis without definite CT evidence of diverticulitis at this time. No free intraperitoneal air or fluid identified. No sizable bladder calculus. Grade 1 anterolisthesis of L5 on S1 with bilateral spondylolysis. IMPRESSION: No bowel obstruction, free intraperitoneal air/ fluid or sizable inflammatory collections identified on this noncontrast examination. Thickening versus underdistention of the stomach. Correlate for possible gastritis. Colonic diverticulosis without definite CT evidence of diverticulitis at this time. A few other findings as above.
[2024-11-25] MEDS: SODIUM CHLOR 0.9% PF (SALINE LOCK) 10ML VIAL/SYR IV SCH (04:59)
[2024-11-25] MEDS: hydrALAZINE HCL 20 MG/ML VL IV PRN (05:51)
--- NOTE | 2024-11-25 10:25 | DVHPN2 ---
Subjective The patient is seen and examined at bedside. Remained very weak Reviewed: Care Plan, H&P, Labs, Medications, Previous Orders, Radiology Changes from previous H/P or p: No Changes Eyes: No Pain, No Vision change, No Conjunctivae inflammation, No Eyelid inflammation, No Other, No Redness ENT: No Ear pain, No Ear discharge, No Nose pain, No Nose discharge, No Nose congestion, No Mouth pain, No Mouth swelling, No Throat pain, No Throat swelling, No Other Cardiovascular: No Chest Pain, No Palpitations, No Orthopnea, No Paroxysmal Noc. Dyspnea, No Edema, No Lt Headedness, No Other Respiratory: No Cough, No Dry; Shortness of breath; No SOB with excertion, No Wheezing, No Hemoptysis, No Pleuritic Pain, No Sputum, No Other Gastrointestinal: No Nausea, No Vomiting, No Abdominal Pain, No Diarrhea, No Constipation, No Melena, No Hematochezia, No Other Genitourinary: No Dysuria, No Frequency, No Incontinence, No Hematuria, No Retention, No Other Musculoskeletal: No other, No neck pain, No shoulder pain, No arm pain, No back pain, No hand pain, No leg pain, No foot pain Skin: No Rash, No Lesions, No Jaundice, No Bruising, No Other Objective Vitals Vital Signs Date Time Temp Pulse Resp B/P (MAP) Pulse Ox O2 Delivery O2 Flow Rate FiO2 11/25/24 05:51 174/99 11/25/24 05:00 97.6 68 17 98 97.6 11/25/24 03:12 Nasal Cannula* 2 28 Intake/Output Intake and Output 11/25/24 07:00 Intake Total 1000 ml Balance 1000 ml Intake Oral 0 ml IV Total 1000 ml # Voids 3 General Appearance: Alert HEENT: Atraumatic, PERRLA, EOMI, Mucous membr. moist/pink Neck: Supple Lungs: Clear to auscultation, Normal air movement Cardiovascular: Regular rate, Normal S1, Normal S2, No murmurs, Gallops, Rubs Abdomen: Normal bowel sounds, Soft, No tenderness Neuro: Cranial nerves 3-12 NL Psych/Mental Status: Mental status NL Medications Current Medications Medications Dose Ordered Sig/Katelynn Route Start Time Stop Time Status Last Admin Dose Admin Atorvastatin Calcium 20 mg HS PO 11/25/24 22:00 Quetiapine Fumarate 25 mg HS PO 11/25/24 22:00 Albuterol 2.5 mg Q4HPRN PRN NEB 11/24/24 23:00 Ipratropium [place] 0.5 mg Q4HPRN PRN NEB 11/24/24 23:00 Olanzapine 15 mg DAILY PO 11/25/24 10:00 Divalproex Sodium 250 mg BID PO 11/25/24 10:00 Sodium Chloride 10 ml Q8HR IV 11/25/24 06:00 11/25/24 04:59 10 ML Acetaminophen/ Hydrocodone Bitart 1 tab Q4HP PRN PO 11/24/24 23:00 Ondansetron HCl 4 mg Q4HP PRN IV 11/24/24 23:00 Docusate Sodium 100 mg BIDPRN PRN PO 11/24/24 23:00 Acetaminophen 650 mg Q6HP PRN PO 11/24/24 23:00 Nitroglycerin 0.4 mg Q5MINP PRN SL 11/24/24 23:45 Morphine Sulfate 2 mg Q30M PRN IV 11/24/24 23:45 Hydralazine HCl 10 mg Q4HPRN PRN IV 11/25/24 05:30 11/25/24 05:51 10 MG Laboratory Results Laboratory Tests 11/24/24 19:37 Chemistry Test 11/24/24 19:37 Albumin 3.6 g/dL (3.2-4.8) Calcium Level 9.0 mg/dL (8.7-10.4) Magnesium Level 2.2 mg/dL (1.6-2.6) Total Protein 5.7 g/dL (5.7-8.2) Cardiac Markers Test 11/24/24 19:37 B-Type Natriuretic Peptide 86.68 pg/mL (0-100) LFT Test 11/24/24 19:37 Alanine Aminotransferase (ALT) 12 U/L (7-40) Alkaline Phosphatase 50 U/L (46-116) Aspartate Amino Transferase (AST) 16 U/L (13-40) Total Bilirubin 0.3 mg/dL (0.2-1.0) Urinalysis Test 11/24/24 22:00 Urine Color Colorless (Yellow) Urine Clarity Turbid (Clear) H Urine pH 7.0 (5.0-9.0) Urine Specific [place] 1.010 (1.001-1.035) Urine Protein Negative (Negative) Urine Ketones Negative (Negative) Urine Blood Negative /uL (Negative) Urine Nitrite 2+ (Negative) H Urine Bilirubin Negative (Negative) Urine Urobilinogen Normal mg/dL (Negative) Urine Leukocyte Esterase Negative /uL (Negative) Urine RBC 1 /hpf (0 - 4) Urine Microscopic WBC 2 /HPF (0-5) Urine Squamous Epithelial Cells Few /hpf (<5) Urine Bacteria Few /hpf (None Seen) H Urine Glucose Normal mg/dL (Normal) Labs and/or images reviewed: Labs reviewed by me Assessment/Plan Assessment/Plan Generalized weakness Acute respiratory failure with hypoxia Continuing current management. Continuing with nebulizer and IV fluid. We will empirically put the patient on Rocephin 1 g IV q.day. This medical document was created using an electronic medical record system with [employer] direct computerized dictation system. Although this document has been carefully reviewed, there may still be some phonetic and typographical errors. These areas are purely typographical due to imperfections of the software programs, and do not reflect any compromise in the patient's medical care. Plan discussed with: Patient Date of Service: Nov 25, 2024 Billing Provider: LUIS A PATEL MD Common Visit Codes: [id number] INP/OBS CARE(HIGH) LUIS A PATEL MD Nov 25, 2024 10:25
[2024-11-25] MEDS: OLANZapine 5 MG TAB PO SCH (10:39)
[2024-11-25 10:59] LABS: Hematocrit 46.8 % (36.0-46.0); Hemoglobin 16.0 g/dL (12.2-16.2); Mean Corpuscular Hemoglobin 33.3 pg (28.0-32.0); Mean Corpuscular Volume 97.3 fL (80.0-100.0); Nucleated Red Blood Cells % 0.1 %
[2024-11-25 11:17] LABS: Alanine Aminotransferase 13 U/L (7-40); Albumin 4.0 g/dL (3.2-4.8); Alkaline Phosphatase 55 U/L (46-116); Anion Gap 6 (5-15); BUN/Creatinine Ratio 12.2 (10.0-20.0); Calcium 9.3 mg/dL (8.7-10.4); Carbon Dioxide 28 mmol/L (20-31); Chloride 105 mmol/L (98-107); Glucose 94 mg/dL (74-106); Potassium 3.7 mmol/L (3.5-5.1); Sodium 139 mmol/L (136-145); Total Protein 6.4 g/dL (5.7-8.2)
[2024-11-25 11:18] LABS: Bilirubin, Total 0.6 mg/dL (0.2-1.0)
[2024-11-25 11:22] LABS: Blood Urea Nitrogen 6 mg/dL (9-23)
[2024-11-25] MEDS: HYDROcodone-ACET 5/325MG TAB PO PRN (12:39)
[2024-11-25] MEDS: ATORVASTATIN 20 MG TAB PO SCH (21:38)
[2024-11-26] VITALS (13 sets, daily range): BP systolic 97–132; BP diastolic 52–80; PULSE 6–126; RESP 16–24; TEMP 97.7–98; O2SAT 96–100
[2024-11-26 10:19] LABS: Base Excess 3.8 mmol/L (-2.0-3.0)
[2024-11-26] MEDS: SODIUM CHLORIDE 0.9% 500 ML IV ONE (10:33)
--- NOTE | 2024-11-26 10:33 | DVH ---
CHEST RADIOGRAPH Indication: SOB Technique: Single frontal view of the chest was obtained Comparison: XY CHEST PORTABLE on DOS: 11/24/24 FINDINGS: Lines and Tubes: None Lungs: No focal consolidation. Pleura: No effusion. No pneumothorax. Cardiomediastinal contours: Unremarkable Bones: No acute osseous abnormality. Chest: Bilateral breast implants. IMPRESSION: 1. No acute cardiopulmonary disease.
[2024-11-26 11:09] LABS: Hematocrit 49.2 % (36.0-46.0); Hemoglobin 16.7 g/dL (12.2-16.2); Mean Corpuscular Hemoglobin 33.3 pg (28.0-32.0); Mean Corpuscular Volume 98.3 fL (80.0-100.0); Nucleated Red Blood Cells % 0.1 %
--- NOTE | 2024-11-26 11:21 | DVHPN2 ---
Subjective The patient is seen and examined at bedside. Remained very weak. Blood pressure dropped to 60/40 Reviewed: Care Plan, H&P, Labs, Medications, Previous Orders, Radiology Changes from previous H/P or p: No Changes Eyes: No Pain, No Vision change, No Conjunctivae inflammation, No Eyelid inflammation, No Other, No Redness ENT: No Ear pain, No Ear discharge, No Nose pain, No Nose discharge, No Nose congestion, No Mouth pain, No Mouth swelling, No Throat pain, No Throat swelling, No Other Cardiovascular: No Chest Pain, No Palpitations, No Orthopnea, No Paroxysmal Noc. Dyspnea, No Edema, No Lt Headedness, No Other Respiratory: No Cough, No Dry; Shortness of breath; No SOB with excertion, No Wheezing, No Hemoptysis, No Pleuritic Pain, No Sputum, No Other Gastrointestinal: No Nausea, No Vomiting, No Abdominal Pain, No Diarrhea, No Constipation, No Melena, No Hematochezia, No Other Genitourinary: No Dysuria, No Frequency, No Incontinence, No Hematuria, No Retention, No Other Musculoskeletal: No other, No neck pain, No shoulder pain, No arm pain, No back pain, No hand pain, No leg pain, No foot pain Skin: No Rash, No Lesions, No Jaundice, No Bruising, No Other Objective Vitals Vital Signs Date Time Temp Pulse Resp B/P (MAP) Pulse Ox O2 Delivery O2 Flow Rate FiO2 11/26/24 09:00 98.0 118 24 97/52 (67) 96 98.0 11/26/24 08:00 Nasal Cannula* 2 28 Intake/Output Intake and Output 11/26/24 07:00 Intake Total 310 ml Balance 310 ml Intake Oral 310 ml # Voids 9 General Appearance: Alert HEENT: Atraumatic, PERRLA, EOMI, Mucous membr. moist/pink Neck: Supple Lungs: Clear to auscultation, Normal air movement Cardiovascular: Regular rate, Normal S1, Normal S2, No murmurs, Gallops, Rubs Abdomen: Normal bowel sounds, Soft, No tenderness Neuro: Cranial nerves 3-12 NL Psych/Mental Status: Mental status NL Medications Current Medications Medications Dose Ordered Sig/Katelynn Route Start Time Stop Time Status Last Admin Dose Admin Atorvastatin Calcium 20 mg HS PO 11/25/24 22:00 11/25/24 21:38 20 MG Quetiapine Fumarate 25 mg HS PO 11/25/24 22:00 11/25/24 21:38 25 MG Albuterol 2.5 mg Q4HPRN PRN NEB 11/24/24 23:00 Ipratropium [place] 0.5 mg Q4HPRN PRN NEB 11/24/24 23:00 Olanzapine 15 mg DAILY PO 11/25/24 10:00 11/25/24 10:39 15 MG Divalproex Sodium 250 mg BID PO 11/25/24 10:00 11/25/24 21:39 250 MG Sodium Chloride 10 ml Q8HR IV 11/25/24 06:00 11/26/24 05:01 10 ML Acetaminophen/ Hydrocodone Bitart 1 tab Q4HP PRN PO 11/24/24 23:00 11/25/24 12:39 1 TAB Ondansetron HCl 4 mg Q4HP PRN IV 11/24/24 23:00 Docusate Sodium 100 mg BIDPRN PRN PO 11/24/24 23:00 Acetaminophen 650 mg Q6HP PRN PO 11/24/24 23:00 Nitroglycerin 0.4 mg Q5MINP PRN SL 11/24/24 23:45 Morphine Sulfate 2 mg Q30M PRN IV 11/24/24 23:45 Hydralazine HCl 10 mg Q4HPRN PRN IV 11/25/24 05:30 11/25/24 22:11 10 MG Ceftriaxone Sodium 50 ml @ 100 mls/hr DAILY@09 IV 11/27/24 09:00 Laboratory Results Laboratory Tests 11/25/24 10:27 Chemistry Test 11/26/24 10:10 Albumin Pending Calcium Level Pending Total Protein Pending LFT Test 11/26/24 10:10 Alanine Aminotransferase (ALT) Pending Alkaline Phosphatase Pending Aspartate Amino Transferase (AST) Pending Total Bilirubin Pending Urinalysis Test 11/24/24 22:00 Urine Color Colorless (Yellow) Urine Clarity Turbid (Clear) H Urine pH 7.0 (5.0-9.0) Urine Specific [place] 1.010 (1.001-1.035) Urine Protein Negative (Negative) Urine Ketones Negative (Negative) Urine Blood Negative /uL (Negative) Urine Nitrite 2+ (Negative) H Urine Bilirubin Negative (Negative) Urine Urobilinogen Normal mg/dL (Negative) Urine Leukocyte Esterase Negative /uL (Negative) Urine RBC 1 /hpf (0 - 4) Urine Microscopic WBC 2 /HPF (0-5) Urine Squamous Epithelial Cells Few /hpf (<5) Urine Bacteria Few /hpf (None Seen) H Urine Glucose Normal mg/dL (Normal) Blood Gas Results Test 11/26/24 10:10 Arterial Blood pH 7.402 (7.350-7.450) FiO2 % 28.0 Labs and/or images reviewed: Labs reviewed by me Assessment/Plan Assessment/Plan Generalized weakness Acute respiratory failure with hypoxia Continuing current management. Continuing with nebulizer and IV fluid. We will empirically put the patient on Rocephin 1 g IV q.day. I will give patient 500ml bolus Will check lactic acid level This medical document was created using an electronic medical record system with [employer] computerized dictation system. Although this document has been carefully reviewed, there may still be some phonetic and typographical errors. These areas are purely typographical due to imperfections of the software programs, and do not reflect any compromise in the patient's medical care. Plan discussed with: Patient, Other My Orders Orders - LUIS A PATEL MD Procedure Category Date Status Time Chest Xray 1 View XY 11/26/24 Resulted 09:47 Comprehensive LAB 11/26/24 In Process Metabolic Panel 09:47 Lactic Acid W/ Reflex LAB 11/26/24 In Process Order 09:47 Abg W/ Co-Ox RT 11/26/24 Logged 09:54 Ceftriaxone 1gm/50ml PHA 11/27/24 In Process D5w (Rocephin) 09:00 Electrocardigram EKG 11/26/24 Logged 10:33 Date of Service: Nov 26, 2014 Billing Provider: LUIS A PATEL MD Common Visit Codes: [id number] INP/OBS CARE(HIGH) LUIS A PATEL MD Nov 26, 2024 11:21
[2024-11-26 11:25] LABS: Alanine Aminotransferase 13 U/L (7-40); Albumin 4.1 g/dL (3.2-4.8); Alkaline Phosphatase 60 U/L (46-116); Anion Gap 6 (5-15); BUN/Creatinine Ratio 7.4 (10.0-20.0); Bilirubin, Total 0.7 mg/dL (0.2-1.0); Blood Urea Nitrogen 7 mg/dL (9-23); Calcium 10.2 mg/dL (8.7-10.4); Carbon Dioxide 29 mmol/L (20-31); Chloride 102 mmol/L (98-107); Glucose 179 mg/dL (74-106); Potassium 4.1 mmol/L (3.5-5.1); Sodium 137 mmol/L (136-145); Total Protein 6.7 g/dL (5.7-8.2)
[2024-11-26 11:30] LABS: Lactic Acid w/Reflex 2.7 mmol/L (0.4-2.0)
[2024-11-26] MEDS ORDERED: VANCOMYCIN PER PHARMACY 0 MG IV SCH (12:30)
[2024-11-26] MEDS: VANCOMYCIN 1GM/250ML KIT 250 ML IV ONE (14:59)
[2024-11-26] MEDS: ALBUTEROL SULF 2.5 MG/0.5ML(0.5%) NEB SOLN NEB PRN (20:19)
[2024-11-26] MEDS: IPRATROPIUM BROM 0.5 MG/2.5ML INH SOL NEB PRN (20:19)
[2024-11-27] VITALS (12 sets, daily range): BP systolic 105–123; BP diastolic 58–94; PULSE 60–100; RESP 16–19; TEMP 97.4–98.2; O2SAT 94–98
[2024-11-27 06:39] LABS: Hematocrit 45.4 % (36.0-46.0); Hemoglobin 15.4 g/dL (12.2-16.2); Mean Corpuscular Hemoglobin 33.2 pg (28.0-32.0); Mean Corpuscular Volume 97.9 fL (80.0-100.0); Nucleated Red Blood Cells % 0.1 %
--- NOTE | 2024-11-27 10:34 | ECG ---
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
[2024-11-27] MEDS: VANCOMYCIN 750MG KIT 100 ML IV ONE (10:35)
--- NOTE | 2024-11-27 12:44 | DVHPN2 ---
Subjective The patient is seen and examined at bedside. Remained very weak. Blood pressure dropped to 60/40. Respond to IV fluid Reviewed: Care Plan, H&P, Labs, Medications, Previous Orders, Radiology Changes from previous H/P or p: No Changes Eyes: No Pain, No Vision change, No Conjunctivae inflammation, No Eyelid inflammation, No Other, No Redness ENT: No Ear pain, No Ear discharge, No Nose pain, No Nose discharge, No Nose congestion, No Mouth pain, No Mouth swelling, No Throat pain, No Throat swelling, No Other Cardiovascular: No Chest Pain, No Palpitations, No Orthopnea, No Paroxysmal Noc. Dyspnea, No Edema, No Lt Headedness, No Other Respiratory: No Cough, No Dry; Shortness of breath; No SOB with excertion, No Wheezing, No Hemoptysis, No Pleuritic Pain, No Sputum, No Other Gastrointestinal: No Nausea, No Vomiting, No Abdominal Pain, No Diarrhea, No Constipation, No Melena, No Hematochezia, No Other Genitourinary: No Dysuria, No Frequency, No Incontinence, No Hematuria, No Retention, No Other Musculoskeletal: No other, No neck pain, No shoulder pain, No arm pain, No back pain, No hand pain, No leg pain, No foot pain Skin: No Rash, No Lesions, No Jaundice, No Bruising, No Other Objective Vitals Vital Signs Date Time Temp Pulse Resp B/P (MAP) Pulse Ox O2 Delivery O2 Flow Rate FiO2 11/27/24 10:00 94 Nasal Cannula 2.0 11/27/24 10:00 28 11/27/24 09:00 97.4 74 16 115/94 (101) 97.4 Intake/Output Intake and Output 11/27/24 07:00 Intake Total 1750 ml Balance 1750 ml Intake Oral 950 ml IV Total 800 ml # Voids 10 General Appearance: Alert HEENT: Atraumatic, PERRLA, EOMI, Mucous membr. moist/pink Neck: Supple Lungs: Clear to auscultation, Normal air movement Cardiovascular: Regular rate, Normal S1, Normal S2, No murmurs, Gallops, Rubs Abdomen: Normal bowel sounds, Soft, No tenderness Neuro: Cranial nerves 3-12 NL Psych/Mental Status: Mental status NL Medications Current Medications Medications Dose Ordered Sig/Katelynn Route Start Time Stop Time Status Last Admin Dose Admin Atorvastatin Calcium 20 mg HS PO 11/25/24 22:00 11/26/24 21:34 20 MG Quetiapine Fumarate 25 mg HS PO 11/25/24 22:00 11/26/24 21:34 25 MG Albuterol 2.5 mg Q4HPRN PRN NEB 11/24/24 23:00 11/26/24 20:19 2.5 MG Ipratropium [place] 0.5 mg Q4HPRN PRN NEB 11/24/24 23:00 11/26/24 20:19 0.5 MG Olanzapine 15 mg DAILY PO 11/25/24 10:00 11/27/24 10:32 15 MG Divalproex Sodium 250 mg BID PO 11/25/24 10:00 11/27/24 10:32 250 MG Sodium Chloride 10 ml Q8HR IV 11/25/24 06:00 11/26/24 21:34 10 ML Acetaminophen/ Hydrocodone Bitart 1 tab Q4HP PRN PO 11/24/24 23:00 11/25/24 12:39 1 TAB Ondansetron HCl 4 mg Q4HP PRN IV 11/24/24 23:00 Docusate Sodium 100 mg BIDPRN PRN PO 11/24/24 23:00 Acetaminophen 650 mg Q6HP PRN PO 11/24/24 23:00 Nitroglycerin 0.4 mg Q5MINP PRN SL 11/24/24 23:45 Morphine Sulfate 2 mg Q30M PRN IV 11/24/24 23:45 Hydralazine HCl 10 mg Q4HPRN PRN IV 11/25/24 05:30 11/25/24 22:11 10 MG Ceftriaxone Sodium 50 ml @ 100 mls/hr DAILY@09 IV 11/27/24 09:00 11/27/24 12:13 100 MLS/HR Vancomycin HCl 0 ml @ 0 mls/hr UD IV 11/26/24 12:30 Laboratory Results Laboratory Tests 11/26/24 10:10 11/27/24 05:45 Urinalysis Test 11/24/24 22:00 Urine Color Colorless (Yellow) Urine Clarity Turbid (Clear) H Urine pH 7.0 (5.0-9.0) Urine Specific [place] 1.010 (1.001-1.035) Urine Protein Negative (Negative) Urine Ketones Negative (Negative) Urine Blood Negative /uL (Negative) Urine Nitrite 2+ (Negative) H Urine Bilirubin Negative (Negative) Urine Urobilinogen Normal mg/dL (Negative) Urine Leukocyte Esterase Negative /uL (Negative) Urine RBC 1 /hpf (0 - 4) Urine Microscopic WBC 2 /HPF (0-5) Urine Squamous Epithelial Cells Few /hpf (<5) Urine Bacteria Few /hpf (None Seen) H Urine Glucose Normal mg/dL (Normal) Labs and/or images reviewed: Labs reviewed by me Assessment/Plan Assessment/Plan Generalized weakness Acute respiratory failure with hypoxia Continuing current management. Continuing with nebulizer and IV fluid. We will empirically put the patient on Rocephin 1 g IV q.day. I will give patient 500ml bolus Will check lactic acid level This medical document was created using an electronic medical record system with [employer] direct computerized dictation system. Although this document has been carefully reviewed, there may still be some phonetic and typographical errors. These areas are purely typographical due to imperfections of the software programs, and do not reflect any compromise in the patient's medical care. Plan discussed with: Patient Date of Service: Nov 27, 2024 Billing Provider: LUIS A PATEL MD Common Visit Codes: [id number] INP/OBS CARE(HIGH) LUIS A PATEL MD Nov 27, 2024 12:44
[2024-11-28] VITALS (9 sets, daily range): BP systolic 109–126; BP diastolic 69–83; PULSE 71–93; RESP 17–19; TEMP 97.5–98.3; O2SAT 91–98
[2024-11-28] MEDS: VANCOMYCIN 750MG KIT 100 ML IV SCH (05:13)
--- NOTE | 2024-11-28 11:21 | DVHPN2 ---
Subjective The patient is seen and examined at bedside. Remained very weak. Reviewed: Care Plan, H&P, Labs, Medications, Previous Orders, Radiology Changes from previous H/P or p: No Changes Eyes: No Pain, No Vision change, No Conjunctivae inflammation, No Eyelid inflammation, No Other, No Redness ENT: No Ear pain, No Ear discharge, No Nose pain, No Nose discharge, No Nose congestion, No Mouth pain, No Mouth swelling, No Throat pain, No Throat swelling, No Other Cardiovascular: No Chest Pain, No Palpitations, No Orthopnea, No Paroxysmal Noc. Dyspnea, No Edema, No Lt Headedness, No Other Respiratory: No Cough, No Dry; Shortness of breath; No SOB with excertion, No Wheezing, No Hemoptysis, No Pleuritic Pain, No Sputum, No Other Gastrointestinal: No Nausea, No Vomiting, No Abdominal Pain, No Diarrhea, No Constipation, No Melena, No Hematochezia, No Other Genitourinary: No Dysuria, No Frequency, No Incontinence, No Hematuria, No Retention, No Other Musculoskeletal: No other, No neck pain, No shoulder pain, No arm pain, No back pain, No hand pain, No leg pain, No foot pain Skin: No Rash, No Lesions, No Jaundice, No Bruising, No Other Objective Vitals Vital Signs Date Time Temp Pulse Resp B/P (MAP) Pulse Ox O2 Delivery O2 Flow Rate FiO2 11/28/24 10:00 97 Nasal Cannula* 2 28 11/28/24 09:00 97.5 78 18 116/70 (85) 97.5 Intake/Output Intake and Output 11/28/24 07:00 Intake Total 1230 ml Balance 1230 ml Intake Oral 1030 ml IV Total 200 ml # Voids 8 General Appearance: Alert HEENT: Atraumatic, PERRLA, EOMI, Mucous membr. moist/pink Neck: Supple Lungs: Clear to auscultation, Normal air movement Cardiovascular: Regular rate, Normal S1, Normal S2, No murmurs, Gallops, Rubs Abdomen: Normal bowel sounds, Soft, No tenderness Neuro: Cranial nerves 3-12 NL Psych/Mental Status: Mental status NL Medications Current Medications Medications Dose Ordered Sig/Katelynn Route Start Time Stop Time Status Last Admin Dose Admin Atorvastatin Calcium 20 mg HS PO 11/25/24 22:00 11/27/24 21:06 20 MG Quetiapine Fumarate 25 mg HS PO 11/25/24 22:00 11/27/24 21:06 25 MG Albuterol 2.5 mg Q4HPRN PRN NEB 11/24/24 23:00 11/26/24 20:19 2.5 MG Ipratropium [place] 0.5 mg Q4HPRN PRN NEB 11/24/24 23:00 11/26/24 20:19 0.5 MG Olanzapine 15 mg DAILY PO 11/25/24 10:00 11/28/24 10:36 15 MG Divalproex Sodium 250 mg BID PO 11/25/24 10:00 11/28/24 10:37 250 MG Sodium Chloride 10 ml Q8HR IV 11/25/24 06:00 11/28/24 04:59 10 ML Acetaminophen/ Hydrocodone Bitart 1 tab Q4HP PRN PO 11/24/24 23:00 11/25/24 12:39 1 TAB Ondansetron HCl 4 mg Q4HP PRN IV 11/24/24 23:00 Docusate Sodium 100 mg BIDPRN PRN PO 11/24/24 23:00 Acetaminophen 650 mg Q6HP PRN PO 11/24/24 23:00 Nitroglycerin 0.4 mg Q5MINP PRN SL 11/24/24 23:45 Morphine Sulfate 2 mg Q30M PRN IV 11/24/24 23:45 Hydralazine HCl 10 mg Q4HPRN PRN IV 11/25/24 05:30 11/25/24 22:11 10 MG Ceftriaxone Sodium 50 ml @ 100 mls/hr DAILY@09 IV 11/27/24 09:00 11/28/24 10:37 100 MLS/HR Vancomycin HCl 0 ml @ 0 mls/hr UD IV 11/26/24 12:30 Vancomycin HCl 100 ml @ 100 mls/hr Q18H IV 11/28/24 05:00 11/28/24 05:13 100 MLS/HR Laboratory Results Laboratory Tests 11/26/24 10:10 11/27/24 05:45 11/28/24 04:40 Urinalysis Test 11/24/24 22:00 Urine Color Colorless (Yellow) Urine Clarity Turbid (Clear) H Urine pH 7.0 (5.0-9.0) Urine Specific [place] 1.010 (1.001-1.035) Urine Protein Negative (Negative) Urine Ketones Negative (Negative) Urine Blood Negative /uL (Negative) Urine Nitrite 2+ (Negative) H Urine Bilirubin Negative (Negative) Urine Urobilinogen Normal mg/dL (Negative) Urine Leukocyte Esterase Negative /uL (Negative) Urine RBC 1 /hpf (0 - 4) Urine Microscopic WBC 2 /HPF (0-5) Urine Squamous Epithelial Cells Few /hpf (<5) Urine Bacteria Few /hpf (None Seen) H Urine Glucose Normal mg/dL (Normal) Labs and/or images reviewed: Labs reviewed by me Assessment/Plan Assessment/Plan Generalized weakness Acute respiratory failure with hypoxia Hypotension ?sepsis with unknown etiology Continuing current management. Continuing with nebulizer and IV fluid. We will empirically put the patient on Rocephin 1 g IV q.day. Will add Vancomycin , pharmacy to dose. I will give patient 500ml bolus lactic acid level back to normal. Will follow up with blood culture and urine culture This medical document was created using an electronic medical record system with [employer] direct computerized dictation system. Although this document has been carefully reviewed, there may still be some phonetic and typographical errors. These areas are purely typographical due to imperfections of the software programs, and do not reflect any compromise in the patient's medical care. Plan discussed with: Patient, Other (RN) My Orders Orders - LUIS A PATEL MD Procedure Category Date Status Time Blood Culture JASON 11/27/24 In Process 14:48 Vancomycin 750mg Kit PHA 11/28/24 In Process (Vancomycin Hcl) 05:00 Vancomycin,Trough LAB 11/28/24 Logged 22:00 Vancomycin Per VIKA 11/28/24 In Process Pharmacy Protoc 23:00 Lactic Acid W/ Reflex LAB 11/28/24 Logged Order 11:18 Pt Request For Service PT 11/28/24 Transmitted 11:19 Date of Service: Nov 28, 2024 Billing Provider: LUIS A PATEL MD Common Visit Codes: [id number] INP/OBS CARE(HIGH) LUIS A PATEL MD Nov 28, 2024 11:21
[2024-11-29] VITALS (11 sets, daily range): BP systolic 95–117; BP diastolic 54–74; PULSE 66–77; RESP 16–19; TEMP 97.2–98.9; O2SAT 91–98
--- NOTE | 2024-11-29 11:33 | DVHPN2 ---
Subjective The patient is seen and examined at bedside. Remained very weak. Reviewed: Care Plan, H&P, Labs, Medications, Previous Orders, Radiology Changes from previous H/P or p: No Changes Eyes: No Pain, No Vision change, No Conjunctivae inflammation, No Eyelid inflammation, No Other, No Redness ENT: No Ear pain, No Ear discharge, No Nose pain, No Nose discharge, No Nose congestion, No Mouth pain, No Mouth swelling, No Throat pain, No Throat swelling, No Other Cardiovascular: No Chest Pain, No Palpitations, No Orthopnea, No Paroxysmal Noc. Dyspnea, No Edema, No Lt Headedness, No Other Respiratory: No Cough, No Dry; Shortness of breath; No SOB with excertion, No Wheezing, No Hemoptysis, No Pleuritic Pain, No Sputum, No Other Gastrointestinal: No Nausea, No Vomiting, No Abdominal Pain, No Diarrhea, No Constipation, No Melena, No Hematochezia, No Other Genitourinary: No Dysuria, No Frequency, No Incontinence, No Hematuria, No Retention, No Other Musculoskeletal: No other, No neck pain, No shoulder pain, No arm pain, No back pain, No hand pain, No leg pain, No foot pain Skin: No Rash, No Lesions, No Jaundice, No Bruising, No Other Objective Vitals Vital Signs Date Time Temp Pulse Resp B/P (MAP) Pulse Ox O2 Delivery O2 Flow Rate FiO2 11/29/24 06:50 93 Room Air 0.0 11/29/24 06:50 21 11/29/24 05:00 97.8 70 19 97/59 (72) 97.8 Intake/Output Intake and Output 11/29/24 07:00 Intake Total 1130 ml Balance 1130 ml Intake Oral 980 ml IV Total 150 ml # Voids 10 General Appearance: Alert HEENT: Atraumatic, PERRLA, EOMI, Mucous membr. moist/pink Neck: Supple Lungs: Clear to auscultation, Normal air movement Cardiovascular: Regular rate, Normal S1, Normal S2, No murmurs, Gallops, Rubs Abdomen: Normal bowel sounds, Soft, No tenderness Neuro: Cranial nerves 3-12 NL Psych/Mental Status: Mental status NL Medications Current Medications Medications Dose Ordered Sig/Katelynn Route Start Time Stop Time Status Last Admin Dose Admin Atorvastatin Calcium 20 mg HS PO 11/25/24 22:00 11/28/24 21:13 20 MG Quetiapine Fumarate 25 mg HS PO 11/25/24 22:00 11/28/24 21:13 25 MG Albuterol 2.5 mg Q4HPRN PRN NEB 11/24/24 23:00 11/26/24 20:19 2.5 MG Ipratropium [place] 0.5 mg Q4HPRN PRN NEB 11/24/24 23:00 11/26/24 20:19 0.5 MG Olanzapine 15 mg DAILY PO 11/25/24 10:00 11/29/24 10:09 15 MG Divalproex Sodium 250 mg BID PO 11/25/24 10:00 11/29/24 10:09 250 MG Sodium Chloride 10 ml Q8HR IV 11/25/24 06:00 11/29/24 06:00 10 ML Acetaminophen/ Hydrocodone Bitart 1 tab Q4HP PRN PO 11/24/24 23:00 11/25/24 12:39 1 TAB Ondansetron HCl 4 mg Q4HP PRN IV 11/24/24 23:00 Docusate Sodium 100 mg BIDPRN PRN PO 11/24/24 23:00 Acetaminophen 650 mg Q6HP PRN PO 11/24/24 23:00 Nitroglycerin 0.4 mg Q5MINP PRN SL 11/24/24 23:45 Morphine Sulfate 2 mg Q30M PRN IV 11/24/24 23:45 Hydralazine HCl 10 mg Q4HPRN PRN IV 11/25/24 05:30 11/25/24 22:11 10 MG Ceftriaxone Sodium 50 ml @ 100 mls/hr DAILY@09 IV 11/27/24 09:00 11/29/24 10:09 100 MLS/HR Vancomycin HCl 0 ml @ 0 mls/hr UD IV 11/26/24 12:30 Vancomycin HCl 100 ml @ 100 mls/hr Q18H IV 11/28/24 05:00 11/28/24 23:25 100 MLS/HR Vancomycin HCl 100 ml @ 100 mls/hr Q12H IV 11/29/24 12:00 UNV Laboratory Results Laboratory Tests 11/26/24 10:10 11/27/24 05:45 11/29/24 10:29 Urinalysis Test 11/24/24 22:00 Urine Color Colorless (Yellow) Urine Clarity Turbid (Clear) H Urine pH 7.0 (5.0-9.0) Urine Specific [place] 1.010 (1.001-1.035) Urine Protein Negative (Negative) Urine Ketones Negative (Negative) Urine Blood Negative /uL (Negative) Urine Nitrite 2+ (Negative) H Urine Bilirubin Negative (Negative) Urine Urobilinogen Normal mg/dL (Negative) Urine Leukocyte Esterase Negative /uL (Negative) Urine RBC 1 /hpf (0 - 4) Urine Microscopic WBC 2 /HPF (0-5) Urine Squamous Epithelial Cells Few /hpf (<5) Urine Bacteria Few /hpf (None Seen) H Urine Glucose Normal mg/dL (Normal) Microbiology Microbiology Date/Time Source Procedure Growth Status 11/27/24 15:56 Blood Blood Culture - Preliminary NO GROWTH AFTER 24 HOURS OF INCUBATION. Resulted Labs and/or images reviewed: Labs reviewed by me Assessment/Plan Assessment/Plan Generalized weakness Acute respiratory failure with hypoxia Hypotension ?sepsis with unknown etiology Continuing current management. Continuing with nebulizer and IV fluid. We will empirically put the patient on Rocephin 1 g IV q.day. Will add Vancomycin , pharmacy to dose. I will give patient 500ml bolus lactic acid level back to normal. Will follow up with blood culture and urine culture PT evaluation Discharge planning. This medical document was created using an electronic medical record system with [employer] computerized dictation system. Although this document has been carefully reviewed, there may still be some phonetic and typographical errors. These areas are purely typographical due to imperfections of the software programs, and do not reflect any compromise in the patient's medical care. Plan discussed with: Other (RN) My Orders Orders - LUIS A PATEL MD Procedure Category Date Status Time Vancomycin 750mg Kit PHA 11/29/24 Logged (Vancomycin Hcl) 12:00 Vancomycin Per [facility]KA 11/29/24 In Process Pharmacy Protoc 12:00 Creatinine LAB 11/30/24 Verified 04:00 Vancomycin,Trough LAB 11/30/24 Verified 23:00 Date of Service: Nov 29, 2024 Billing Provider: LUIS A PATEL MD Common Visit Codes: [id number] INP/OBS CARE(HIGH) LUIS A PATEL MD Nov 29, 2024 11:33
[2024-11-29] MEDS: VANCOMYCIN 750MG KIT 100 ML IV SCH (12:02)
[2024-11-30] VITALS (13 sets, daily range): BP systolic 93–123; BP diastolic 57–77; PULSE 66–95; RESP 16–20; TEMP 36.8; O2SAT 91–99
--- NOTE | 2024-11-30 11:51 | DVHPN2 ---
Subjective The patient is seen and examined at bedside. Remained very weak. Reviewed: Care Plan, H&P, Labs, Medications, Previous Orders, Radiology Changes from previous H/P or p: No Changes Eyes: No Pain, No Vision change, No Conjunctivae inflammation, No Eyelid inflammation, No Other, No Redness ENT: No Ear pain, No Ear discharge, No Nose pain, No Nose discharge, No Nose congestion, No Mouth pain, No Mouth swelling, No Throat pain, No Throat swelling, No Other Cardiovascular: No Chest Pain, No Palpitations, No Orthopnea, No Paroxysmal Noc. Dyspnea, No Edema, No Lt Headedness, No Other Respiratory: No Cough, No Dry; Shortness of breath; No SOB with excertion, No Wheezing, No Hemoptysis, No Pleuritic Pain, No Sputum, No Other Gastrointestinal: No Nausea, No Vomiting, No Abdominal Pain, No Diarrhea, No Constipation, No Melena, No Hematochezia, No Other Genitourinary: No Dysuria, No Frequency, No Incontinence, No Hematuria, No Retention, No Other Musculoskeletal: No other, No neck pain, No shoulder pain, No arm pain, No back pain, No hand pain, No leg pain, No foot pain Skin: No Rash, No Lesions, No Jaundice, No Bruising, No Other Objective Vitals Vital Signs Date Time Temp Pulse Resp B/P (MAP) Pulse Ox O2 Delivery O2 Flow Rate FiO2 11/30/24 09:00 98.3 84 16 109/68 (82) 91 98.3 11/30/24 08:00 Room Air* 0 21 Intake/Output Intake and Output 11/30/24 07:00 Intake Total 1140 ml Balance 1140 ml Intake Oral 890 ml IV Total 250 ml # Voids 7 General Appearance: Alert HEENT: Atraumatic, PERRLA, EOMI, Mucous membr. moist/pink Neck: Supple Lungs: Clear to auscultation, Normal air movement Cardiovascular: Regular rate, Normal S1, Normal S2, No murmurs, Gallops, Rubs Abdomen: Normal bowel sounds, Soft, No tenderness Neuro: Cranial nerves 3-12 NL Psych/Mental Status: Mental status NL Medications Current Medications Medications Dose Ordered Sig/Katelynn Route Start Time Stop Time Status Last Admin Dose Admin Atorvastatin Calcium 20 mg HS PO 11/25/24 22:00 11/29/24 21:09 20 MG Quetiapine Fumarate 25 mg HS PO 11/25/24 22:00 11/29/24 21:09 25 MG Albuterol 2.5 mg Q4HPRN PRN NEB 11/24/24 23:00 11/30/24 09:13 2.5 MG Ipratropium [place] 0.5 mg Q4HPRN PRN NEB 11/24/24 23:00 11/30/24 09:13 0.5 MG Olanzapine 15 mg DAILY PO 11/25/24 10:00 11/30/24 09:00 15 MG Divalproex Sodium 250 mg BID PO 11/25/24 10:00 11/30/24 09:00 250 MG Sodium Chloride 10 ml Q8HR IV 11/25/24 06:00 11/30/24 06:00 10 ML Acetaminophen/ Hydrocodone Bitart 1 tab Q4HP PRN PO 11/24/24 23:00 11/25/24 12:39 1 TAB Ondansetron HCl 4 mg Q4HP PRN IV 11/24/24 23:00 Docusate Sodium 100 mg BIDPRN PRN PO 11/24/24 23:00 Acetaminophen 650 mg Q6HP PRN PO 11/24/24 23:00 Nitroglycerin 0.4 mg Q5MINP PRN SL 11/24/24 23:45 Morphine Sulfate 2 mg Q30M PRN IV 11/24/24 23:45 Hydralazine HCl 10 mg Q4HPRN PRN IV 11/25/24 05:30 11/25/24 22:11 10 MG Ceftriaxone Sodium 50 ml @ 100 mls/hr DAILY@09 IV 11/27/24 09:00 11/29/24 10:09 100 MLS/HR Vancomycin HCl 0 ml @ 0 mls/hr UD IV 11/26/24 12:30 Vancomycin HCl 100 ml @ 100 mls/hr Q12H IV 11/29/24 12:00 11/30/24 01:39 100 MLS/HR Laboratory Results Laboratory Tests 11/26/24 10:10 11/27/24 05:45 11/30/24 08:39 Urinalysis Test 11/24/24 22:00 Urine Color Colorless (Yellow) Urine Clarity Turbid (Clear) H Urine pH 7.0 (5.0-9.0) Urine Specific [place] 1.010 (1.001-1.035) Urine Protein Negative (Negative) Urine Ketones Negative (Negative) Urine Blood Negative /uL (Negative) Urine Nitrite 2+ (Negative) H Urine Bilirubin Negative (Negative) Urine Urobilinogen Normal mg/dL (Negative) Urine Leukocyte Esterase Negative /uL (Negative) Urine RBC 1 /hpf (0 - 4) Urine Microscopic WBC 2 /HPF (0-5) Urine Squamous Epithelial Cells Few /hpf (<5) Urine Bacteria Few /hpf (None Seen) H Urine Glucose Normal mg/dL (Normal) Microbiology Microbiology Date/Time Source Procedure Growth Status 11/27/24 15:56 Blood Blood Culture - Preliminary NO GROWTH AFTER 48 HOURS OF INCUBATION. Resulted Labs and/or images reviewed: Labs reviewed by me Assessment/Plan Assessment/Plan Generalized weakness Acute respiratory failure with hypoxia Hypotension ?sepsis with unknown etiology Continuing current management. Continuing with nebulizer and IV fluid. We will empirically put the patient on Rocephin 1 g IV q.day. Will add Vancomycin , pharmacy to dose. I will give patient 500ml bolus lactic acid level back to normal. Will follow up with blood culture and urine culture PT evaluation Discharge planning. I discussed with daughter, Sabina, on the phone. Per Sabina, she has a hospice agency but the daughter could not remember the name of the company. The daughter want the patient back to the same hospice. The daughter is travel out of town today , she will come back tomorrow and she will give us the name of the hospice. Discussed with onsite case manager and RN. So discharge planning for tomorrow This medical document was created using an electronic medical record system with [employer] direct computerized dictation system. Although this document has been carefully reviewed, there may still be some phonetic and typographical errors. These areas are purely typographical due to imperfections of the software programs, and do not reflect any compromise in the patient's medical care. Plan discussed with: Patient, Daughter My Orders Orders - LUIS A PATEL MD Procedure Category Date Status Time Creatinine LAB 12/01/24 Verified 04:00 Date of Service: Nov 30, 2024 Billing Provider: LUIS A PATEL MD Common Visit Codes: [id number] INP/OBS CARE(HIGH) LUIS A PATEL MD Nov 30, 2024 11:51
[2024-11-30] MEDS ORDERED: LEVO500T91 PO (12:33)
--- NOTE | 2024-11-30 12:35 | DVHDS2 ---
Discharge Summary Date of Admission Nov 24, 2024 at 23:43 Date of Discharge: Nov 30, 2024 Labs/Diagnostic Data: Laboratory Results Test 11/30/24 08:39 11/28/24 22:03 11/28/24 12:05 11/27/24 05:45 Creatinine 0.62 mg/dL (0.550-1.02) Glomerular Filtration Rate Calc 96 mL/min (>90) Vancomycin Level Trough 8.6 ug/mL (5-10) Lactic Acid Level 1.1 mmol/L (0.4-2.0) White Blood Count 5.9 10^3/uL (4.4-10.8) Red Blood Count 4.64 10^6/uL (4.0-5.20) Hemoglobin 15.4 g/dL (12.2-16.2) Hematocrit 45.4 % (36.0-46.0) Mean Corpuscular Volume 97.9 fL (80.0-100.0) Mean Corpuscular Hemoglobin 33.2 pg (28.0-32.0) Mean Corpuscular Hemoglobin Concent 33.9 g/dL (32.0-36.0) Red Cell Distribution Width 15.2 % (11.8-14.3) Platelet Count 118 10^3/uL (140-450) Mean Platelet Volume 9.7 fL (6.9-10.8) Neutrophils (%) (Auto) 50.7 % (37.0-80.0) Lymphocytes (%) (Auto) 39.1 % (10.0-50.0) Monocytes (%) (Auto) 9.1 % (0.0-12.0) Eosinophils (%) (Auto) 0.9 % (0.0-7.0) Basophils (%) (Auto) 0.2 % (0.0-2.0) Neutrophils # (Auto) 3.0 10 ^3/uL (1.6-8.6) Lymphocytes # (Auto) 2.3 10 ^3/uL (0.4-5.4) Monocytes # (Auto) 0.5 10 ^3/uL (0-1.3) Eosinophils # (Auto) 0.1 10 ^3/uL (0-0.8) Basophils # (Auto) 0 10 ^3/uL (0-0.2) Nucleated Red Blood Cells 0.1 % Random Vancomycin Level 7.3 ug/mL (5-10) Test 11/26/24 10:10 11/24/24 23:49 11/24/24 22:00 11/24/24 20:45 Blood Gas Specimen Type Arterial Blood Gas Sample Site Right radial Blood Gas Patient Temperature 37.0 Arterial Blood Date Drawn [id number] Arterial Blood pH 7.402 (7.350-7.450) Arterial Blood Partial Pressure CO2 48.7 mmHg (32.0-45.0) Arterial Blood Partial Pressure O2 88.8 mmHg (83.0-108.0) Arterial Blood HCO3 29.6 mmol/L (21.0-28.0) Arterial Blood Oxygen Saturation 96.4 % (94.0-98.0) Arterial Blood Base Excess 3.8 mmol/L (-2.0-3.0) Arterial Blood Oxyhemoglobin 95.2 % (94.0-98.0) Arterial Blood Carboxyhemoglobin 0.8 % (0.5-1.5) Arterial Blood Methemoglobin 0.4 % (0.0-1.5) Young Test Yes Blood Gas Total Hemoglobin 15.80 g/dL (12.0-16.0) Blood Gas Liter Flow 2.00 Blood Gas Modality Nasal cannula FiO2 % 28.0 Sodium Level 137 mmol/L (136-145) Potassium Level 4.1 mmol/L (3.5-5.1) Chloride Level 102 mmol/L (98-107) Carbon Dioxide Level 29 mmol/L (20-31) Anion Gap 6 (5-15) Blood Urea Nitrogen 7 mg/dL (9-23) BUN/Creatinine Ratio 7.4 (10.0-20.0) Serum Glucose 179 mg/dL (74-106) Calcium Level 10.2 mg/dL (8.7-10.4) Total Bilirubin 0.7 mg/dL (0.2-1.0) Aspartate Amino Transferase (AST) 28 U/L (13-40) Alanine Aminotransferase (ALT) 13 U/L (7-40) Alkaline Phosphatase 60 U/L (46-116) Total Protein 6.7 g/dL (5.7-8.2) Albumin 4.1 g/dL (3.2-4.8) POC Glucose 85 mg/dl (70-106) Urine Color Colorless (Yellow) Urine Clarity Turbid (Clear) Urine pH 7.0 (5.0-9.0) Urine Specific [place] 1.010 (1.001-1.035) Urine Protein Negative (Negative) Urine Ketones Negative (Negative) Urine Blood Negative /uL (Negative) Urine Nitrite 2+ (Negative) Urine Bilirubin Negative (Negative) Urine Urobilinogen Normal mg/dL (Negative) Urine Leukocyte Esterase Negative /uL (Negative) Urine RBC 1 /hpf (0 - 4) Urine Microscopic WBC 2 /HPF (0-5) Urine Squamous Epithelial Cells Few /hpf (<5) Urine Bacteria Few /hpf (None Seen) Urine Glucose Normal mg/dL (Normal) Troponin I High Sensitivity 13 ng/L (</=34) Test 11/24/24 19:37 Magnesium Level 2.2 mg/dL (1.6-2.6) B-Type Natriuretic Peptide 86.68 pg/mL (0-100) Other Laboratory Tests 11/30/24 08:39 11/27/24 05:45 11/26/24 10:10 Final Diagnosis/Problems List UTI Discharge Disposition: Hospice - Home Discharge Instruct/Medications Diet: Cardiac 2g Na,low cholest Activity: No Restrictions, As Tolerated Follow Up/Referral: pcp 1-2 weeks Scheduled Ascorbic Acid (Vitamin C Tablet), 1 TAB PO BID Atorvastatin Calcium (Atorvastatin Calcium), 1 TAB PO DAILY, (Reported) Cholecalciferol (Vitamin D3 Super Strength), 2,000 UNIT PO Q24H Dexamethasone (Decadron), 6 MG PO Q24H Divalproex Sodium (Divalproex Sodium Dr), 1 TAB PO TID, (Reported) Escitalopram Oxalate (Escitalopram Oxalate), 1.5 TAB PO DAILY, (Reported) Levofloxacin Hemihydrate (Levaquin 500 Mg), 1 TAB PO DAILY Olanzapine (Olanzapine), 1 TAB PO DAILY, (Reported) Quetiapine Fumerate (Quetiapine Fumarate), 3 TAB PO HS, (Reported) Zinc Sulfate (Zinc), 220 MG PO Q24H Discontinued Medications Azithromycin (Zithromax Z-Tres), 250 MG PO Q24H Discharge Statement: "Patient was advised to return to the ER or call 911 if any headaches, dizziness, shortness of breath, chest pain, abdominal pain, bleeding, fevers, or worsening of medical condition. Patient was counseled about treatment plan, medications, possible side effects, patientverbalized understanding. All questions were answered to the best of my ability. This discharge took greater then 30 minutes in planning, reviewing documentation, counseling the patient, and discussing with other team members." ASSESSMENT ASSESSMENT Assessment UTI LUIS A PATEL MD Nov 30, 2024 12:35
[2024-12-01] VITALS (13 sets, daily range): BP systolic 104–130; BP diastolic 61–78; PULSE 72–96; RESP 16–20; TEMP 97.7–98.6; O2SAT 90–98
[2024-12-01] MEDS: MELATONIN 5 MG TAB PO ONE (00:26)
[2024-12-01] MEDS: NICOTINE 21MG/24 HR TOPICAL PATCH TD SCH (11:46)
--- NOTE | 2024-12-01 11:56 | DVHPN2 ---
Subjective The patient is seen and examined at bedside. Remained very weak. The patient wanted to go outside and had a smoked. Reviewed: Care Plan, H&P, Labs, Medications, Previous Orders, Radiology Changes from previous H/P or p: No Changes Eyes: No Pain, No Vision change, No Conjunctivae inflammation, No Eyelid inflammation, No Other, No Redness ENT: No Ear pain, No Ear discharge, No Nose pain, No Nose discharge, No Nose congestion, No Mouth pain, No Mouth swelling, No Throat pain, No Throat swelling, No Other Cardiovascular: No Chest Pain, No Palpitations, No Orthopnea, No Paroxysmal Noc. Dyspnea, No Edema, No Lt Headedness, No Other Respiratory: No Cough, No Dry; Shortness of breath; No SOB with excertion, No Wheezing, No Hemoptysis, No Pleuritic Pain, No Sputum, No Other Gastrointestinal: No Nausea, No Vomiting, No Abdominal Pain, No Diarrhea, No Constipation, No Melena, No Hematochezia, No Other Genitourinary: No Dysuria, No Frequency, No Incontinence, No Hematuria, No Retention, No Other Musculoskeletal: No other, No neck pain, No shoulder pain, No arm pain, No back pain, No hand pain, No leg pain, No foot pain Skin: No Rash, No Lesions, No Jaundice, No Bruising, No Other Objective Vitals Vital Signs Date Time Temp Pulse Resp B/P (MAP) Pulse Ox O2 Delivery O2 Flow Rate FiO2 12/01/24 10:00 94 Room Air* 0 21 12/01/24 09:00 97.7 96 18 130/72 (91) 97.7 Intake/Output Intake and Output 12/01/24 07:00 Intake Total 1390 ml Balance 1390 ml Intake Oral 1140 ml IV Total 250 ml # Voids 5 General Appearance: Alert HEENT: Atraumatic, PERRLA, EOMI, Mucous membr. moist/pink Neck: Supple Lungs: Clear to auscultation, Normal air movement Cardiovascular: Regular rate, Normal S1, Normal S2, No murmurs, Gallops, Rubs Abdomen: Normal bowel sounds, Soft, No tenderness Neuro: Cranial nerves 3-12 NL Psych/Mental Status: Mental status NL Medications Current Medications Medications Dose Ordered Sig/Katelynn Route Start Time Stop Time Status Last Admin Dose Admin Atorvastatin Calcium 20 mg HS PO 11/25/24 22:00 11/30/24 21:39 20 MG Quetiapine Fumarate 25 mg HS PO 11/25/24 22:00 11/30/24 21:39 25 MG Albuterol 2.5 mg Q4HPRN PRN NEB 11/24/24 23:00 11/30/24 09:13 2.5 MG Ipratropium [place] 0.5 mg Q4HPRN PRN NEB 11/24/24 23:00 11/30/24 09:13 0.5 MG Olanzapine 15 mg DAILY PO 11/25/24 10:00 12/01/24 08:50 15 MG Divalproex Sodium 250 mg BID PO 11/25/24 10:00 12/01/24 08:49 250 MG Sodium Chloride 10 ml Q8HR IV 11/25/24 06:00 12/01/24 05:54 10 ML Acetaminophen/ Hydrocodone Bitart 1 tab Q4HP PRN PO 11/24/24 23:00 11/25/24 12:39 1 TAB Ondansetron HCl 4 mg Q4HP PRN IV 11/24/24 23:00 Docusate Sodium 100 mg BIDPRN PRN PO 11/24/24 23:00 Acetaminophen 650 mg Q6HP PRN PO 11/24/24 23:00 Nitroglycerin 0.4 mg Q5MINP PRN SL 11/24/24 23:45 Morphine Sulfate 2 mg Q30M PRN IV 11/24/24 23:45 Hydralazine HCl 10 mg Q4HPRN PRN IV 11/25/24 05:30 11/25/24 22:11 10 MG Ceftriaxone Sodium 50 ml @ 100 mls/hr DAILY@09 IV 11/27/24 09:00 12/01/24 08:49 100 MLS/HR Vancomycin HCl 0 ml @ 0 mls/hr UD IV 11/26/24 12:30 Vancomycin HCl 100 ml @ 100 mls/hr Q12H IV 11/29/24 12:00 12/01/24 00:28 100 MLS/HR Nicotine 1 patch DAILY TD 12/01/24 11:15 12/01/24 11:46 1 PATCH Laboratory Results Laboratory Tests 11/26/24 10:10 11/27/24 05:45 12/01/24 03:37 Urinalysis Test 11/24/24 22:00 Urine Color Colorless (Yellow) Urine Clarity Turbid (Clear) H Urine pH 7.0 (5.0-9.0) Urine Specific [place] 1.010 (1.001-1.035) Urine Protein Negative (Negative) Urine Ketones Negative (Negative) Urine Blood Negative /uL (Negative) Urine Nitrite 2+ (Negative) H Urine Bilirubin Negative (Negative) Urine Urobilinogen Normal mg/dL (Negative) Urine Leukocyte Esterase Negative /uL (Negative) Urine RBC 1 /hpf (0 - 4) Urine Microscopic WBC 2 /HPF (0-5) Urine Squamous Epithelial Cells Few /hpf (<5) Urine Bacteria Few /hpf (None Seen) H Urine Glucose Normal mg/dL (Normal) Microbiology Microbiology Date/Time Source Procedure Growth Status 11/27/24 15:56 Blood Blood Culture - Preliminary NO GROWTH AFTER 72 HOURS OF INCUBATION. Resulted Labs and/or images reviewed: Labs reviewed by me Assessment/Plan Assessment/Plan Generalized weakness Acute respiratory failure with hypoxia Hypotension ?sepsis with unknown etiology Continuing current management. Continuing with nebulizer and IV fluid. We will empirically put the patient on Rocephin 1 g IV q.day. Will add Vancomycin , pharmacy to dose. I will give patient 500ml bolus lactic acid level back to normal. Will follow up with blood culture and urine culture PT evaluation Discharge planning. I discussed with daughter, Sabina, on the phone. Per Sabina, she has a hospice agency but the daughter could not remember the name of the company. The daughter want the patient back to the same hospice. The daughter is travel out of town today , she will come back tomorrow and she will give us the name of the hospice. Discussed with supportive employment case manager and RN. So discharge planning for tomorrow 12/01: Still waiting for daughter regarding to the hospice agency. I will give the patient Nicoderm patch 21 mg one patch daily. Discharge back to her board and care when hospice arrangement done This medical document was created using an electronic medical record system with [employer] direct computerized dictation system. Although this document has been carefully reviewed, there may still be some phonetic and typographical errors. These areas are purely typographical due to imperfections of the software programs, and do not reflect any compromise in the patient's medical care. 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
[2024-12-02] VITALS (9 sets, daily range): BP systolic 102–124; BP diastolic 61–82; PULSE 71–96; RESP 15–18; TEMP 97.4–98.2; O2SAT 89–100
[2024-12-02] MEDS ORDERED: NICOTINE 21MG/24 HR TOPICAL PATCH TD SCH (10:00)
--- NOTE | 2024-12-02 15:34 | DVHDS2 ---
Discharge Summary Date of Admission Nov 24, 2024 at 23:43 Date of Discharge: Dec 02, 2024 Admitting Diagnosis Generalized weakness Acute respiratory failure with hypoxia Hypotension ?sepsis with unknown etiology Labs/Diagnostic Data: Laboratory Results Test 12/02/24 11:00 12/01/24 03:37 11/28/24 12:05 11/27/24 05:45 Vancomycin Level Trough 13.7 ug/mL (5-10) Creatinine 0.69 mg/dL (0.550-1.02) Glomerular Filtration Rate Calc 93 mL/min (>90) Lactic Acid Level 1.1 mmol/L (0.4-2.0) White Blood Count 5.9 10^3/uL (4.4-10.8) Red Blood Count 4.64 10^6/uL (4.0-5.20) Hemoglobin 15.4 g/dL (12.2-16.2) Hematocrit 45.4 % (36.0-46.0) Mean Corpuscular Volume 97.9 fL (80.0-100.0) Mean Corpuscular Hemoglobin 33.2 pg (28.0-32.0) Mean Corpuscular Hemoglobin Concent 33.9 g/dL (32.0-36.0) Red Cell Distribution Width 15.2 % (11.8-14.3) Platelet Count 118 10^3/uL (140-450) Mean Platelet Volume 9.7 fL (6.9-10.8) Neutrophils (%) (Auto) 50.7 % (37.0-80.0) Lymphocytes (%) (Auto) 39.1 % (10.0-50.0) Monocytes (%) (Auto) 9.1 % (0.0-12.0) Eosinophils (%) (Auto) 0.9 % (0.0-7.0) Basophils (%) (Auto) 0.2 % (0.0-2.0) Neutrophils # (Auto) 3.0 10 ^3/uL (1.6-8.6) Lymphocytes # (Auto) 2.3 10 ^3/uL (0.4-5.4) Monocytes # (Auto) 0.5 10 ^3/uL (0-1.3) Eosinophils # (Auto) 0.1 10 ^3/uL (0-0.8) Basophils # (Auto) 0 10 ^3/uL (0-0.2) Nucleated Red Blood Cells 0.1 % Random Vancomycin Level 7.3 ug/mL (5-10) Test 11/26/24 10:10 11/24/24 23:49 11/24/24 22:00 11/24/24 20:45 Blood Gas Specimen Type Arterial Blood Gas Sample Site Right radial Blood Gas Patient Temperature 37.0 Arterial Blood Date Drawn [id number] Arterial Blood pH 7.402 (7.350-7.450) Arterial Blood Partial Pressure CO2 48.7 mmHg (32.0-45.0) Arterial Blood Partial Pressure O2 88.8 mmHg (83.0-108.0) Arterial Blood HCO3 29.6 mmol/L (21.0-28.0) Arterial Blood Oxygen Saturation 96.4 % (94.0-98.0) Arterial Blood Base Excess 3.8 mmol/L (-2.0-3.0) Arterial Blood Oxyhemoglobin 95.2 % (94.0-98.0) Arterial Blood Carboxyhemoglobin 0.8 % (0.5-1.5) Arterial Blood Methemoglobin 0.4 % (0.0-1.5) Young Test Yes Blood Gas Total Hemoglobin 15.80 g/dL (12.0-16.0) Blood Gas Liter Flow 2.00 Blood Gas Modality Nasal cannula FiO2 % 28.0 Sodium Level 137 mmol/L (136-145) Potassium Level 4.1 mmol/L (3.5-5.1) Chloride Level 102 mmol/L (98-107) Carbon Dioxide Level 29 mmol/L (20-31) Anion Gap 6 (5-15) Blood Urea Nitrogen 7 mg/dL (9-23) BUN/Creatinine Ratio 7.4 (10.0-20.0) Serum Glucose 179 mg/dL (74-106) Calcium Level 10.2 mg/dL (8.7-10.4) Total Bilirubin 0.7 mg/dL (0.2-1.0) Aspartate Amino Transferase (AST) 28 U/L (13-40) Alanine Aminotransferase (ALT) 13 U/L (7-40) Alkaline Phosphatase 60 U/L (46-116) Total Protein 6.7 g/dL (5.7-8.2) Albumin 4.1 g/dL (3.2-4.8) POC Glucose 85 mg/dl (70-106) Urine Color Colorless (Yellow) Urine Clarity Turbid (Clear) Urine pH 7.0 (5.0-9.0) Urine Specific [place] 1.010 (1.001-1.035) Urine Protein Negative (Negative) Urine Ketones Negative (Negative) Urine Blood Negative /uL (Negative) Urine Nitrite 2+ (Negative) Urine Bilirubin Negative (Negative) Urine Urobilinogen Normal mg/dL (Negative) Urine Leukocyte Esterase Negative /uL (Negative) Urine RBC 1 /hpf (0 - 4) Urine Microscopic WBC 2 /HPF (0-5) Urine Squamous Epithelial Cells Few /hpf (<5) Urine Bacteria Few /hpf (None Seen) Urine Glucose Normal mg/dL (Normal) Troponin I High Sensitivity 13 ng/L (</=34) Test 11/24/24 19:37 Magnesium Level 2.2 mg/dL (1.6-2.6) B-Type Natriuretic Peptide 86.68 pg/mL (0-100) Other Laboratory Tests 12/01/24 03:37 11/27/24 05:45 11/26/24 10:10 Brief Hx & Hospital Course: This is a 69 years old female with past medical history of anxiety COPD, depression, PA came to emergency department because of generalized weakness. The patient was picked up at the residential [facility] facility from being unable to get out of bed. The patient feeling weak for one week, decreased appetite, episode of vomiting on and off. The patient was found to have sepsis. The patient also found to have nitrite in her urine. The patient was put on IV antibiotic with Rocephin 1 g IV q.day and vancomycin pharmacy to dose. The patient subsequently doing better and supposed to come back to the [facility] with hospice however the daughter forget the hospice name and the patient can not remember what hospice agency is that. Today the daughter came back from out of town trip and found the hospice name. We contact the hospice, they accept her back, and the patient will be discharged back [facility] with hospice protocol. Activity as tolerated. Diet per home diet. Follow up with primary care physician 1-2 weeks. Physical exam: HEENT: Normocephalic atraumatic pupils equal react to light and accommodation. Extraocular muscles intact, conjunctiva pink, oropharynx moist, no thrush, no exudate. Lymphatic: No lymphadenopathy Cardiovascular exam: S1, S2 was heard. No murmurs, rubs, gallops Lung: Clear on auscultation bilaterally, no wheeze, rale, rhonchi. GI: Abdominal soft, nondistended, nontenderness, positive bowel sounds. Extremity: No crepitus, cyanosis, edema. Pedal pulses present bilateral. Full range of motion. Skin: Normal turgor, no rash. Psych: Alert, baseline dementia. Neurology: No focal deficits, cranial nerve II to XII grossly intact. This medical document was created using an electronic medical record system with [employer] dictation system. Although this document has been carefully reviewed, there may still be some phonetic and typographical errors. These areas are purely typographical due to imperfections of the software programs, and do not reflect any compromise in the patient's medical care. Condition at Discharge: Stable Final Diagnosis/Problems List Generalized weakness Acute respiratory failure with hypoxia Hypotension Sepsis secondary to UTI UTI Discharge Disposition: Hospice - Home Discharge Instruct/Medications Diet: Cardiac 2g Na,low cholest Activity: No Restrictions, As Tolerated Follow Up/Referral: pcp 1-2 weeks Scheduled Ascorbic Acid (Vitamin C Tablet), 1 TAB PO BID Atorvastatin Calcium (Atorvastatin Calcium), 1 TAB PO DAILY, (Reported) Cholecalciferol (Vitamin D3 Super Strength), 2,000 UNIT PO Q24H Dexamethasone (Decadron), 6 MG PO Q24H Divalproex Sodium (Divalproex Sodium Dr), 1 TAB PO TID, (Reported) Escitalopram Oxalate (Escitalopram Oxalate), 1.5 TAB PO DAILY, (Reported) Levofloxacin Hemihydrate (Levaquin 500 Mg), 1 TAB PO DAILY Olanzapine (Olanzapine), 1 TAB PO DAILY, (Reported) Quetiapine Fumerate (Quetiapine Fumarate), 3 TAB PO HS, (Reported) Zinc Sulfate (Zinc), 220 MG PO Q24H Discontinued Medications Azithromycin (Zithromax Z-Tres), 250 MG PO Q24H Discharge Statement: "Patient was advised to return to the ER or call 911 if any headaches, dizziness, shortness of breath, chest pain, abdominal pain, bleeding, fevers, or worsening of medical condition. Patient was counseled about treatment plan, medications, possible side effects, patientverbalized understanding. All questions were answered to the best of my ability. This discharge took greater then 30 minutes in planning, reviewing documentation, counseling the patient, and discussing with other team members." ASSESSMENT ASSESSMENT Assessment UTI Date of Service: Dec 02, 2024 Billing Provider: LUIS A PATEL MD Common Visit Codes: [id number] DISCH DAY >30min LUIS A PATEL MD Dec 02, 2024 15:34
[2024-12-02] MEDS: ACETAMINOPHEN 325 MG TAB PO PRN (17:06)
== END 2024-12-02 20:53 | disposition hospice, home (50) | DRG 871 ==
LOC: EDBD 19:20 → ER 19:20 → OVERFLOW 23:43 → TELE-WESTW 11-25 02:59
PROVIDERS: ADMIT Internal Medicine; ATTEND Internal Medicine
DX: A41.9 Sepsis, unspecified organism (principal); J96.01 Acute respiratory failure with hypoxia; Z59.00 Homelessness unspecified; N30.00 Acute cystitis without hematuria; J44.9 Chronic obstructive pulmonary disease, unspecified; Z51.5 Encounter for palliative care; F03.90 Unspecified dementia, unspecified severity, without behavioral disturbance, psychotic disturbance, mood disturbance, and anxiety; F41.9 Anxiety disorder, unspecified; Z98.51 Tubal ligation status; Z79.899 Other long term (current) drug therapy
CPT/HCPCS: 36415; 36600; 70450; 71045; 74176; 80053; 80202; 81001; 82565; 82805; 82962; 83605; 83735; 83880; 84484; 85025; 87040; 93005; 94640; 96360; 97110; 97116; 97163; 97530; G0378

== ENCOUNTER 2024-12-06 21:06 | Inpatient (IN) | payer OTHER, MEDICARE, MEDICAID ==
[~2024-12-06] VITALS: Ht 167.6 cm; Wt 51.9 kg
[~2024-12-06 21:06] MED LIST changes: -AZITTAB PO; +LEVO500T91 PO
[2024-12-06] MEDS: SODIUM CHLORIDE 0.9% 1,000 ML IV ONE (23:45)
[2024-12-07] VITALS (8 sets, daily range): BP systolic 121–136; BP diastolic 60–89; PULSE 54–74; RESP 16–18; TEMP 97.6–98.5; O2SAT 94–98
[2024-12-07 00:32] LABS: Hematocrit 42.7 % (36.0-46.0); Hemoglobin 14.9 g/dL (12.2-16.2); Mean Corpuscular Hemoglobin 33.8 pg (28.0-32.0); Mean Corpuscular Volume 97.2 fL (80.0-100.0); Nucleated Red Blood Cells % 0.0 %
--- NOTE | 2024-12-07 00:39 | ED.PDOC ---
GI ASSESSMENT HPI Comments Discharge diagnosis 12/02/24 Generalized weakness Acute respiratory failure with hypoxia Hypotension Sepsis secondary to UTI UTI HPI: 69 year old female presents to the emergency department via EMS with a chief complaint of nausea/vomiting onset 3 days. Per EMS, patient is from a boarding care facility, 911 was called due to patient experiencing nausea/vomiting, LLQ pain for the past 3 days. Experienced 6 episodes of emesis today, 1 episode in route to ED. She was diagnosed with UTI 1 week ago, completed course of antibiotics. Patient states she currently has no complaints, does not know why she came to ED, states she is "sleepy" has no pain. She also states she is not sure if she "passed out" earlier today, had a large bowel movement few hours ago. Patient is a poor historian. Denies fever, chills, dysuria, hematuria, diarrhea, constipation, hematemesis. No other symptoms or modifying factors present at this time. Initial Vitals BP: 121/87 HR: 74 RR: 16 O2: 93% Temp: 97.6 F Past Medical History: depression, NV, anxiety, COPD Past Surgical History: Tonsillectomy,tubal ligation Social History: Denies ETOH, smoking, and drug use. Medications: Atorvastatin Allergies: NKDA MARAVILLA: HPI: Extremely Poor Historian. Past Medical History: Past Surgical History: REVIEW OF SYSTEMS: CONSTITUTIONAL: Denies acute: fever, diaphoresis, chills, HEAD: Denies acute: headache, photophobia Eyes: Denies acute: Double vision, vision loss, eye pain, eye discharge. EARS: Denies acute: tinnitus, hearing loss, ear discharge, ear pain, THROAT: Denies acute: sore throat, swelling, difficulty swallowing , pain with swallowing, change in voice. NECK: Denies acute: neck pain, neck swelling, stiff neck. HEART: Denies acute : chest pain, palpitations, LUNGS: Denies acute: SOB, wheezing, cough, hemoptysis ABDOMEN: Denies acute: abdominal pain, diarrhea, melena , hematemesis, hematochezia SKIN: Denies acute: rash, redness, lesions, itchiness. EXTREMITIES: Denies acute: calf pain, numbness, tingling, weakness, denies pain in extremity. Denies acute: Low back pain. Neuro: Denies acute: focal neurological deficit, motor or sensory focal neurological deficit, tremors, seizure like activity, confusion, dizziness, change in mental status, loss of bowel or bladder function, cauda equina like symptoms. : Denies acute: dysuria, hematuria, flank pain, increase in urinary frequency. PSYCH: Denies acute: hallucination, suicidal ideation, homicidal ideation. FEMALE: Denies acute: abnormal vaginal bleeding, foul odor, unusual discharge. PHYSICAL EXAM: General: ----no----acute distress, awake and alert. Head: normocephalic, atraumatic. Neck: supple, trachea is midline, no swelling. Throat: Normal phonation. Eyes:, no erythema, no purulent discharge, no proptosis, no icterus. Heart: regular rate, regular rhythm, no significant murmur appreciated. Lungs: no apparent respiratory distress, Able to speak in full sentences. No wheezing, no rhonchi, no crackles. No stridors Clear to auscultation bilaterally. Abdomen: non tender to palpation, non distended, soft, no guarding, no rebound, + bowel sounds. Neuro: Awake, Alert, oriented to name, self, situation, follows commands GCS=15. Speech is normal. Skin: no petechia, no purpura, no cyanosis, non-pale, not jaundice. Lower extremities: --no - Pitting edema no deformity, no focal swelling, no calf TTP. Makes eye contact. moves all four extremities. Face: no apparent facial droop. ED COURSE: DISCLAIMER: This medical document was created using an electronic medical record system with voice recognition software and computerized dictation system. Although this document has been carefully reviewed, there might still be some phonetic and typographical errors. Occasional wrong-word or "sound-alike" substitutions may have occurred due to the inherent limitations of voice recognition software. These areas are purely typographical due to imperfections of the software programs and do not reflect any compromise in the patient's medical care. Please read the chart carefully and recognize, using context, where these substitutions have occurred. Chief Complaint: Nausea/Vomiting Time Seen by MD: 00:30 Primary Care Provider: "I DON'T KNOW" Reviewed Notes: Allergies Allergies: Uncoded Allergies: denis (Allergy, Mild, itching, 12/07/24) Home Meds Active Scripts Nitrofurantoin Monohydrate Mac (Macrobid) 100 Mg Cap, 100 MG PO BID for 7 Days, #14 CAP Prov:MENDOZA LAWRENCE Soco MORTENSEN 12/07/24 Levofloxacin Hemihydrate (LEVAQUIN 500 MG) 500 Mg Tab, 1 TAB PO DAILY, #7 TAB Prov:LUIS A PATEL MD 11/30/24 Zinc Sulfate (Zinc) 220 Mg Cap, 220 MG PO Q24H for 15 Days, #15 CAP Prov:THANH EPPS MD 06/23/22 Cholecalciferol (Vitamin D3 Super Strength) 2,000 Unit Cap, 2000 UNIT PO Q24H for 15 Days, #15 CAP Prov:THANH EPPS MD 06/23/22 Ascorbic Acid (VITAMIN C TABLET) 500 Mg Tb, 1 TAB PO BID, #30 TAB Prov:THANH EPPS MD 06/23/22 Dexamethasone (Decadron) 6 Mg Tab, 6 MG PO Q24H for 5 Days, #5 TAB Prov:THANH EPPS MD 06/23/22 Reported Medications Olanzapine (OLANZAPINE) 15 Mg Tab, 1 TAB PO DAILY 04/05/22 Atorvastatin Calcium (ATORVASTATIN CALCIUM) 20 Mg Tab, 1 TAB PO DAILY 04/05/22 Divalproex Sodium (Divalproex Sodium Dr) 125 Mg Tab, 1 TAB PO TID 04/05/22 Quetiapine Fumerate (QUETIAPINE FUMARATE) 25 Mg Tab, 3 TAB PO HS 04/05/22 Escitalopram Oxalate (ESCITALOPRAM OXALATE) 10 Mg Tab, 1.5 TAB PO DAILY 04/05/22 Discontinued Scripts Azithromycin (Zithromax Z-Tres) 250 Mg Tab, 250 MG PO Q24H for 6 Days, #6 TAB Prov:THANH EPPS MD 06/23/22 Information Source: Patient, Emergency Med Personnel Mode of Arrival: EMS Timing: Days Duration: Since onset Prehospital treatment: None Severity: Moderate Recent: None Recent Hx of: None Pain Location: LLQ Modifying Factors: Nothing Associated sign and symptoms: Nausea, Vomiting, Abdominal Pain Past Medical History PAST MEDICAL HISTORY: Anxiety, COPD, Depression, NV Surgical History: Tonsillectomy, Tubal Ligation AGRICULTURE ENGINEER History: No Pertinent AGRICULTURE ENGINEER History Family History Family History: Reviewed,noncontributory to illness, Unknown Social History Smoker: Non-Smoker Alcohol: Denies ETOH Use Drugs: Denies Drug Use Lives In: Assisted Care Was a procedure done? Was a procedure done?: No GI differential Dx Differential Diagnosis: Constipation, Gastritis/PUD, Hepatitis, Pancreatitis, UTI, Dehydration, Diabetes/ DKA, Drug toxicity, Electrolyte Imbalance, Food Poisoning, Bacterial, Parasitic, Viral, Hypovolemia, Renal Failure, Mass, Other X-Ray, Labs, Meds, VS Vital Signs Date Time Temp Pulse Resp B/P (MAP) Pulse Ox O2 Delivery O2 Flow Rate FiO2 12/07/24 04:08 98.5 62 16 121/60 (80) 98 98.5 12/07/24 01:49 98.9 62 18 112/75 (87) 98 98.9 12/06/24 21:58 97.6 74 16 121/87 93 97.6 Lab Test 12/07/24 05:00 12/07/24 01:58 12/07/24 01:32 12/07/24 00:45 Range/Units Lactic Acid Level 2.3 *H 2.5 *H 0.4-2.0 mmol/L Urine Color Yellow Yellow Urine Clarity Clear Clear Urine pH 6.0 5.0-9.0 Urine Specific [place] 1.036 H 1.001-1.035 Urine Protein Trace H Negative Urine Ketones 1+ H Negative Urine Blood Negative Negative /uL Urine Nitrite Negative Negative Urine Bilirubin Negative Negative Urine Urobilinogen Normal Negative mg/dL Urine Leukocyte Esterase 2+ Negative /uL Urine RBC 7 0 - 4 /hpf Urine Microscopic WBC 10 H 0-5 /HPF Urine Squamous Epithelial Cells Few <5 /hpf Urine Calcium Oxalate Crystals Few None Seen Urine Bacteria None seen None Seen /hpf Urine Mucus Few None Seen Urine Glucose Normal Normal mg/dL Troponin I High Sensitivity 5 </=34 ng/L Test 12/06/24 23:59 Range/Units White Blood Count 7.5 4.4-10.8 10^3/uL Red Blood Count 4.39 4.0-5.20 10^6/uL Hemoglobin 14.9 12.2-16.2 g/dL Hematocrit 42.7 36.0-46.0 % Mean Corpuscular Volume 97.2 80.0-100.0 fL Mean Corpuscular Hemoglobin 33.8 H 28.0-32.0 pg Mean Corpuscular Hemoglobin Concent 34.8 32.0-36.0 g/dL Red Cell Distribution Width 14.6 H 11.8-14.3 % Platelet Count 161 140-450 10^3/uL Mean Platelet Volume 9.0 6.9-10.8 fL Neutrophils (%) (Auto) 76.4 37.0-80.0 % Lymphocytes (%) (Auto) 19.5 10.0-50.0 % Monocytes (%) (Auto) 3.9 0.0-12.0 % Eosinophils (%) (Auto) 0.2 0.0-7.0 % Basophils (%) (Auto) 0.0 0.0-2.0 % Neutrophils # (Auto) 5.7 1.6-8.6 10 ^3/uL Lymphocytes # (Auto) 1.5 0.4-5.4 10 ^3/uL Monocytes # (Auto) 0.3 0-1.3 10 ^3/uL Eosinophils # (Auto) 0 0-0.8 10 ^3/uL Basophils # (Auto) 0 0-0.2 10 ^3/uL Nucleated Red Blood Cells 0.0 % Sodium Level 146 H 136-145 mmol/L Potassium Level 4.9 3.5-5.1 mmol/L Chloride Level 105 98-107 mmol/L Carbon Dioxide Level 33 H 20-31 mmol/L Anion Gap 8 5-15 Blood Urea Nitrogen 24 H 9-23 mg/dL Creatinine 0.81 0.550-1.02 mg/dL Glomerular Filtration Rate Calc 78 >90 mL/min BUN/Creatinine Ratio 29.6 H 10.0-20.0 Serum Glucose 140 H 74-106 mg/dL Lactic Acid Level 2.3 *H 0.4-2.0 mmol/L Calcium Level 10.0 8.7-10.4 mg/dL Total Bilirubin 0.4 0.2-1.0 mg/dL Aspartate Amino Transferase (AST) 20 13-40 U/L Alanine Aminotransferase (ALT) 21 7-40 U/L Alkaline Phosphatase 63 46-116 U/L Troponin I High Sensitivity 5 </=34 ng/L Total Protein 6.6 5.7-8.2 g/dL Albumin 4.4 3.2-4.8 g/dL Lipase 38 12-53 U/L Current Medications Medications (Trade) Dose Ordered Sig/Katelynn Route Start Time Stop Time Status Last Admin Sodium Chloride 1,000 ml @ 1,000 mls/hr Q1H ONCE IV 12/06/24 23:45 12/07/24 00:44 DC 12/06/24 23:45 Ceftriaxone Sodium 50 ml @ 100 mls/hr ONCE ONCE IV 12/07/24 03:15 12/07/24 03:44 DC 12/07/24 05:27 [place] [id number] Ph: [phone] DIAGNOSTIC IMAGING Diagnostic Imaging Report : [id number] Signed PATIENT: COSMO MARAVILLA ACCT: [id number] UNIT: [id number] : 1955 LOC: ER ROOM / BED: / AGE / SEX: 69 / F ADM STATUS: REG ER SERVICE 4042 ORDERING PHYSICIAN: MENDOZA LAWRENCE DO PROCEDURE(s): ABPL - CT AB PEL WO CON-NO ORAL OR IV REASON: ABD PAIN N/V ORDER NUMBER(s): [id number], ACCESSION NUMBER(s): [id number] Exam: CT CT AB PEL WO CON-NO ORAL OR IV History: ABD PAIN N/V Comparison Study: CT CT AB PEL WO CON-NO ORAL OR IV on DOS: 11/24/24, [facility] on DOS: 04/05/22 TECHNIQUE: Multidetector CT of the abdomen and pelvis was performed from lung bases to pubic symphysis. Imaging was performed without IV contrast. Axial, coronal, and sagittal multiplanar reformats were obtained from the axial data set by the technologist. RADIATION DOSE: CTDI vol 5.07 mGy. DLP 295.19 mGy.cm Findings: Limited evaluation of the solid organs in the absence of IV contrast. Evaluation is also limited by lack of mesenteric fat. Lungs: There are mild emphysematous changes. There are bilateral breast implants with suggestion of intracapsular rupture. Liver: Unremarkable. Spleen: Unremarkable. Pancreas: Unremarkable. Gallbladder: Unremarkable. Adrenals: Unremarkable Kidneys: Unremarkable. Pelvic Viscera: Unremarkable. Vasculature: Atherosclerotic aortoiliac calcifications. Retroperitoneum: Unremarkable. Bowel: Colonic diverticulosis without CT evidence of diverticulitis. No bowel obstruction. Musculoskeletal: Grade 1 anterolisthesis of L5 on S1 on the basis of bilateral pars defects. Soft tissues: Unremarkable Impression: 1. Limited evaluation as above without acute abdominopelvic abnormality identified. 2. Incidental findings as detailed. ATED BY: KATHY RODRIGUEZ MD DICTATED DATE/TIME: 12/07/24102 SIGNED BY: KATHY RODRIGUEZ MD SIGNED DATE/TIME: 12/07/24102 CC: Time of 1ST Reevaluation: 01:00 Reevaluation 1ST: Unchanged Patient Education/Counseling: Diagnosis, Treatment Family Education/Counseling: No Family Present Comments MDM: patient presented with the above HPI.--alleged nausea and vomiting----workup was initiated. patient was found with the above mentioned diagnosis. the following medications were ordered: please refer to order lists of meds and tests obtained by myself Dr. Lawrence. Patient ED course and VS have been stabilized. Patient has been reassessed in the ED and remained in a stable condition. Pertinent incidental findings were discussed with the patient and/or family. Patient/family voices understanding and is agreeable with plan. Patient has been observed in the ED adequate length of time to insure improvement/stability. Escalation of care considered: Consideration of escalation to observation or admission Patient was ADMITTED to the medicine team for further evaluation and treatment of their presentation. All the reports of any imaging studies that were ordered by myself were reviewed by myself. Departure 1 Departure Time of Disposition: 03:08 Impression: Primary Impression: UTI (urinary tract infection) Additional Impression: Elevated lactic acid level Disposition: ADMITTED INPATIENT Admit to: Tele Condition: Guarded Additional Instructions: Additional instructions: Please read all instructions provided in this packet carefully. You MUST follow-up with your primary care/family doctor in 1 to 2 days. If you are unable to see your primary care/family doctor, please return to our emergency room for re-assessment and re-evaluation in 1 to 2 days. Return to the emergency room here in our facility or to the nearest ER [facility] if your symptoms change or worsen. CONSULTATIONS: you MUST Follow-up for consultation as soon as possible with: -urology and gastroenterology in 1-2 days. Please call for appointment You MUST call the consultants office yourself to make an appointment. You may need to arrange that through your insurance and/or your primary/family doctor. If you are unable to see the planning consultant in 1 to 2 days, you must return to our emergency room (or any other ER of your choice) for re-assessment and re-evaluat ion. Adequate fluid hydration. Although you have been discharged from the Emergency Department, this does not mean that you have a "clean bill of health". No definitive diagnosis for your symptoms has been made today. It is possible that you are in the process of developing a serious illness. This is why you must return to the ED without fail if any new or worsening symptoms develop. Below is a copy of your radiological report for follow up: e-Prescriptions Nitrofurantoin Monohydrate Mac (Macrobid) 100 Mg Cap 100 MG PO BID for 7 Days, #14 CAP Prov: MENDOZA LAWRENCE DO 12/07/24 Discharged With: Self Critical Care Note Critical Care Time?: No I personally scribed for MENDOZA LAWRENCE DO ([email or web address]) on 12/07/24 at 00:39. Electronically submitted by Jennifer Navarrete ([email or web address]). I personally scribed for MENDOZA LAWRENCE DO ([email or web address]) on 12/07/24 at 01:45. Electronically submitted by Jennifer Navarrete ([email or web address]). MENDOZA LAWRENCE DO Dec 07, 2024 00:39
[2024-12-07 00:48] LABS: Alanine Aminotransferase 21 U/L (7-40); Albumin 4.4 g/dL (3.2-4.8); Alkaline Phosphatase 63 U/L (46-116); Anion Gap 8 (5-15); BUN/Creatinine Ratio 29.6 (10.0-20.0); Calcium 10.0 mg/dL (8.7-10.4); Chloride 105 mmol/L (98-107); Lipase 38 U/L (12-53); Potassium 4.9 mmol/L (3.5-5.1); Total Protein 6.6 g/dL (5.7-8.2)
[2024-12-07 00:49] LABS: Bilirubin, Total 0.4 mg/dL (0.2-1.0)
[2024-12-07 00:53] LABS: Lactic Acid w/Reflex 2.3 mmol/L (0.4-2.0)
[2024-12-07 00:55] LABS: Blood Urea Nitrogen 24 mg/dL (9-23); Carbon Dioxide 33 mmol/L (20-31); Glucose 140 mg/dL (74-106); Sodium 146 mmol/L (136-145)
--- NOTE | 2024-12-07 01:05 | DVH ---
Exam: CT CT AB PEL WO CON-NO ORAL OR IV History: ABD PAIN N/V Comparison Study: CT CT AB PEL WO CON-NO ORAL OR IV on DOS: 11/24/24, [facility] on DOS: 04/05/22 TECHNIQUE: Multidetector CT of the abdomen and pelvis was performed from lung bases to pubic symphysi s. Imaging was performed without IV contrast. Axial, coronal, and sagittal multiplanar reformats were obtained from the axial data set by the technologist. RADIATION DOSE: CTDI vol 5.07 mGy. DLP 295.19 mGy.cm Findings: Limited evaluation of the solid organs in the absence of IV contrast. Evaluation is also limited by l ack of mesenteric fat. Lungs: There are mild emphysematous changes. There are bilateral breast implants with suggestion of i ntracapsular rupture. Liver: Unremarkable. Spleen: Unremarkable. Pancreas: Unremarkable. Gallbladder: Unremarkable. Adrenals: Unremarkable Kidneys: Unremarkable. Pelvic Viscera: Unremarkable. Vasculature: Atherosclerotic aortoiliac calcifications. Retroperitoneum: Unremarkable. Bowel: Colonic diverticulosis without CT evidence of diverticulitis. No bowel obstruction. Musculoskeletal: Grade 1 anterolisthesis of L5 on S1 on the basis of bilateral pars defects. Soft tissues: Unremarkable Impression: 1. Limited evaluation as above without acute abdominopelvic abnormality identified. 2. Incidental findings as detailed.
[2024-12-07 03:03] LABS: Urine Protein, UAD TRACE (Negative)
[2024-12-07] MEDS ORDERED: NITR-87 PO (03:09)
[2024-12-07 06:18] LABS: Lactic Acid w/Reflex 2.3 mmol/L (0.4-2.0)
[2024-12-07] MEDS: ONDANSETRON HCL 4 MG/2 ML VIAL IV ONE (07:38)
[2024-12-07] MEDS ORDERED: MORPHINE SULFATE INJ 2 MG/ml SYRG IV PRN (07:45)
[2024-12-07] MEDS ORDERED: SODIUM CHLORIDE 0.9% 1,000 ML IV SCH (07:45)
[2024-12-07] MEDS ORDERED: NITROGLYCERIN 0.4 MG SL TAB SL PRN (07:45)
[2024-12-07] MEDS ORDERED: IPRATROPIUM BROM 0.5 MG/2.5ML INH SOL NEB PRN (07:45)
[2024-12-07] MEDS ORDERED: ONDANSETRON HCL 4 MG/2 ML VIAL IV PRN (07:45)
[2024-12-07] MEDS ORDERED: ALBUTEROL SULF 2.5 MG/0.5ML(0.5%) NEB SOLN NEB PRN (07:45)
--- NOTE | 2024-12-07 07:54 | DVHHP2 ---
History of Present Illness Reason for Visit: Nausea and vomiting History of Present Illness 69-year-old female past medical history anxiety COPD depression [place] surgical history tonsillectomy tubal ligation chief complaint patient was nausea and vomiting according to the ED records for three days with the patient states since one day she comes from a boarding care she states she has been having left lower quadrant abdominal pain has been going on for three days also she stated she was diagnosed with a UTI about a week ago. She states the pain in her left quadrant is like a crampy stabbing pain she also complains of some diarrhea but there was no blood and she had vomited 3 times there was no blood she has no fever no chest pain no shortness with the breath she has no blood in her urine no difficulty urinating when evaluating patient's labs and imaging ceftriaxone was given Zofran normal saline CBC was unremarkable lactate was elevated 2.3 despite IV hydration sodium was found to be 146 CO2 was 33 BUN was 24 creatinine was in range wishes consistent with dehydration UA had ketones also lipase was normal otherwise CMP was unremarkable patient has a UA with bacteria and also ketones his troponin was negative CT scan of the abdomen pelvis was no acute findings surgical findings but did have emphysema changes in the lungs with these findings we will admit patient for IV hydration and medication for nausea Past Medical History See HPI above Past Surgical History See HPI above Family History Reviewed, non-contributory to the management of this case. Past Social History The patient lives at home, denies smoking, alcohol or illicit drugs abuse. Review of Systems Constitutional: No: Fever, Chills, Sweats, Weakness, Malaise, Other Eyes: No: Pain, Vision change, Conjunctivae inflammation, Eyelid inflammation, Other, Redness ENT: No: Ear pain, Ear discharge, Nose pain, Nose discharge, Nose congestion, Mouth pain, Mouth swelling, Throat pain, Throat swelling, Other Respiratory: No: Cough, Dry, Shortness of breath, SOB with excertion, Wheezing, Hemoptysis, Pleuritic Pain, Sputum, Wheezing, Other Cardiovascular: No: Chest Pain, Palpitations, Orthopnea, Paroxysmal Noc. Dyspnea, Edema, Lt Headedness, Other Gastrointestinal: Nausea, Vomiting, Abdominal Pain, Diarrhea; No: Constipation, Melena, Hematochezia, Other Genitourinary: No Dysuria, No Frequency, No Incontinence, No Hematuria, No Retention, No Other Musculoskeletal: No: other, neck pain, shoulder pain, arm pain, back pain, hand pain, leg pain, foot pain Skin: No: Rash, Lesions, Jaundice, Bruising, Other Neurological: No: Weakness, Numbness, Incoordination, Change in speech, Confusion, Seizures, Other Allergies: Coded Allergies: NO KNOWN ALLERGIES (Unverified , 01/12/15) Exam Vital Signs Vital Signs Date Time Temp Pulse Resp B/P (MAP) Pulse Ox O2 Delivery O2 Flow Rate FiO2 12/07/24 04:08 98.5 62 16 121/60 (80) 98 98.5 General Appearance: Alert, Oriented X3, Cooperative, No acute distress HEENT: Atraumatic, PERRLA, EOMI, Mucous membr. moist/pink Respiratory: Clear to auscultation, Normal air movement Cardiovascular: Regular rate, Normal S1, Normal S2, No murmurs Abdominal: Normal bowel sounds, Soft, No tenderness, No hepatospenomegaly, No masses Extremities: No clubbing, No cyanosis, No edema, Normal pulses, No tenderness/swelling Skin: No rashes, No breakdown, No significant lesion Neuro: Normal gait, Normal speech, Strength at 5/5 X4 ext, Normal tone, Sensation intact, Cranial nerves 3-12 NL Psych/Mental Status: Mental status NL, Mood NL Labs/Xrays CT scan abdomen pelvis unremarkable I reviewed labs, imaging CT scan abdomen pelvis, EKG and all diagnostic studies on this patient from ED records and the medical chart Labs Test 12/07/24 05:00 12/07/24 01:32 12/07/24 00:45 12/06/24 23:59 Range/Units Lactic Acid Level 2.3 *H 0.4-2.0 mmol/L Urine Color Yellow Yellow Urine Clarity Clear Clear Urine pH 6.0 5.0-9.0 Urine Specific [place] 1.036 H 1.001-1.035 Urine Protein Trace H Negative Urine Ketones 1+ H Negative Urine Blood Negative Negative /uL Urine Nitrite Negative Negative Urine Bilirubin Negative Negative Urine Urobilinogen Normal Negative mg/dL Urine Leukocyte Esterase 2+ Negative /uL Urine RBC 7 0 - 4 /hpf Urine Microscopic WBC 10 H 0-5 /HPF Urine Squamous Epithelial Cells Few <5 /hpf Urine Calcium Oxalate Crystals Few None Seen Urine Bacteria None seen None Seen /hpf Urine Mucus Few None Seen Urine Glucose Normal Normal mg/dL Troponin I High Sensitivity 5 </=34 ng/L White Blood Count 7.5 4.4-10.8 10^3/uL Red Blood Count 4.39 4.0-5.20 10^6/uL Hemoglobin 14.9 12.2-16.2 g/dL Hematocrit 42.7 36.0-46.0 % Mean Corpuscular Volume 97.2 80.0-100.0 fL Mean Corpuscular Hemoglobin 33.8 H 28.0-32.0 pg Mean Corpuscular Hemoglobin Concent 34.8 32.0-36.0 g/dL Red Cell Distribution Width 14.6 H 11.8-14.3 % Platelet Count 161 140-450 10^3/uL Mean Platelet Volume 9.0 6.9-10.8 fL Neutrophils (%) (Auto) 76.4 37.0-80.0 % Lymphocytes (%) (Auto) 19.5 10.0-50.0 % Monocytes (%) (Auto) 3.9 0.0-12.0 % Eosinophils (%) (Auto) 0.2 0.0-7.0 % Basophils (%) (Auto) 0.0 0.0-2.0 % Neutrophils # (Auto) 5.7 1.6-8.6 10 ^3/uL Lymphocytes # (Auto) 1.5 0.4-5.4 10 ^3/uL Monocytes # (Auto) 0.3 0-1.3 10 ^3/uL Eosinophils # (Auto) 0 0-0.8 10 ^3/uL Basophils # (Auto) 0 0-0.2 10 ^3/uL Nucleated Red Blood Cells 0.0 % Sodium Level 146 H 136-145 mmol/L Potassium Level 4.9 3.5-5.1 mmol/L Chloride Level 105 98-107 mmol/L Carbon Dioxide Level 33 H 20-31 mmol/L Anion Gap 8 5-15 Blood Urea Nitrogen 24 H 9-23 mg/dL Creatinine 0.81 0.550-1.02 mg/dL Glomerular Filtration Rate Calc 78 >90 mL/min BUN/Creatinine Ratio 29.6 H 10.0-20.0 Serum Glucose 140 H 74-106 mg/dL Calcium Level 10.0 8.7-10.4 mg/dL Total Bilirubin 0.4 0.2-1.0 mg/dL Aspartate Amino Transferase (AST) 20 13-40 U/L Alanine Aminotransferase (ALT) 21 7-40 U/L Alkaline Phosphatase 63 46-116 U/L Total Protein 6.6 5.7-8.2 g/dL Albumin 4.4 3.2-4.8 g/dL Lipase 38 12-53 U/L SEPSIS Sepsis Screen Date sepsis recognized/suspect: Dec 06, 2024 Time Sepsis recognized/suspect: 2105 Recent Procedure: No On Antibiotic Therapy: No Respiratory Rate >20: No Heart Rate >90: No Temp<36 C (96.8 F) or >38.3 C: No SBP <90 or MAP <65 mmHG: No New Acute Mental Status Change: No Is the patient on CPAP, BIPAP,: No Vital Signs Date Time Temp Pulse Resp B/P (MAP) Pulse Ox O2 Delivery O2 Flow Rate FiO2 12/07/24 04:08 98.5 62 16 121/60 (80) 98 98.5 12/07/24 01:49 98.9 62 18 112/75 (87) 98 98.9 Laboratory Tests Test 12/06/24 23:59 12/07/24 01:58 12/07/24 05:00 Lactic Acid Level 2.3 mmol/L (0.4-2.0) *H 2.5 mmol/L (0.4-2.0) *H 2.3 mmol/L (0.4-2.0) *H White Blood Count 7.5 10^3/uL (4.4-10.8) Medications Medications Dose Ordered Sig/Katelynn Route Start Time Stop Time Status Last Admin Dose Admin Ceftriaxone Sodium 50 ml @ 100 mls/hr ONCE ONCE IV 12/07/24 03:15 12/07/24 03:44 DC 12/07/24 05:27 100 MLS/HR Sodium Chloride 1,000 ml @ 1,000 mls/hr Q1H ONCE IV 12/06/24 23:45 12/07/24 00:44 DC 12/06/24 23:45 1,000 MLS/HR Assessment/Plan Assessment/Plan acute intractable vomiting acute dehydration ct scan no acute findings evidence by elevated sodium, elevated co2, bun elevated ordered ivf for now ordered zofran prn nausea ordered clear liquid diet advance as tolerated acute intractable abdominal ct scan abd pelvis no acute findings ordered morphine prn pain ordered ivf ordered protonix acute cystitis ordered ceftriaxone for now ordered urine culture chronic problems copd/ephysema duoneb prn anxiety copd depression mi fen/ppx clr liquid ivf scd protonix plan admit to medicine Plan discussed with: Patient Date of Service: Dec 07, 2024 Billing Provider: JAYLEN WALDEN DNP Common Visit Codes: [id number] INP/OBS CARE (HIGH) JAYLEN WALDEN DNP Dec 07, 2024 07:54
[2024-12-07 09:51] LABS: Lactic Acid w/Reflex 2.2 mmol/L (0.4-2.0)
[2024-12-07] MEDS: PANTOPRAZOLE 40 MG/10 ML VIAL INJ IV ONE (11:06)
[2024-12-07] MEDS: SOD CHL 0.45% 1,000 ML IV SCH (11:07)
--- NOTE | 2024-12-07 13:21 | DVHPN2 ---
Reviewed: Care Plan, H&P, Labs, Medications, Previous Orders, Radiology Changes from previous H/P or p: No Changes Eyes: No Pain, No Vision change, No Conjunctivae inflammation, No Eyelid inflammation, No Other, No Redness ENT: No Ear pain, No Ear discharge, No Nose pain, No Nose discharge, No Nose congestion, No Mouth pain, No Mouth swelling, No Throat pain, No Throat swelling, No Other Cardiovascular: No Chest Pain, No Palpitations, No Orthopnea, No Paroxysmal Noc. Dyspnea, No Edema, No Lt Headedness, No Other Respiratory: No Cough, No Dry, No Shortness of breath, No SOB with excertion, No Wheezing, No Hemoptysis, No Pleuritic Pain, No Sputum, No Other Gastrointestinal: Nausea, Vomiting, Abdominal Pain, Diarrhea; No Constipation, No Melena, No Hematochezia, No Other Genitourinary: No Dysuria, No Frequency, No Incontinence, No Hematuria, No Retention, No Other Musculoskeletal: No other, No neck pain, No shoulder pain, No arm pain, No back pain, No hand pain, No leg pain, No foot pain Skin: No Rash, No Lesions, No Jaundice, No Bruising, No Other Objective Vitals Vital Signs Date Time Temp Pulse Resp B/P (MAP) Pulse Ox O2 Delivery O2 Flow Rate FiO2 12/07/24 09:14 98.1 62 21 114/69 (84) 93 98.1 12/07/24 08:10 Room Air* 0 21 Medications Current Medications Medications Dose Ordered Sig/Katelynn Route Start Time Stop Time Status Last Admin Dose Admin Ceftriaxone Sodium 50 ml @ 100 mls/hr DAILY@09 IV 12/07/24 09:00 Ondansetron HCl 4 mg Q4HP PRN IV 12/07/24 07:45 Morphine Sulfate 2 mg Q4HPRN PRN IV 12/07/24 07:45 Nitroglycerin 0.4 mg Q5MINP PRN SL 12/07/24 07:45 Albuterol 2.5 mg Q4HPRN PRN NEB 12/07/24 07:45 Ipratropium [place] 0.5 mg Q4HPRN PRN NEB 12/07/24 07:45 Pantoprazole Sodium 40 mg DAILY IV 12/08/24 10:00 Sodium Chloride 1,000 ml @ 100 mls/hr Q10H IV 12/07/24 09:15 12/07/24 11:07 100 MLS/HR Laboratory Results Laboratory Tests 12/06/24 23:59 Chemistry Test 12/06/24 23:59 Albumin 4.4 g/dL (3.2-4.8) Calcium Level 10.0 mg/dL (8.7-10.4) Total Protein 6.6 g/dL (5.7-8.2) Lipid panel Test 12/06/24 23:59 Lipase 38 U/L (12-53) LFT Test 12/06/24 23:59 Alanine Aminotransferase (ALT) 21 U/L (7-40) Alkaline Phosphatase 63 U/L (46-116) Aspartate Amino Transferase (AST) 20 U/L (13-40) Total Bilirubin 0.4 mg/dL (0.2-1.0) Urinalysis Test 12/07/24 01:32 Urine Color Yellow (Yellow) Urine Clarity Clear (Clear) Urine pH 6.0 (5.0-9.0) Urine Specific [place] 1.036 (1.001-1.035) Urine Protein Trace (Negative) H Urine Ketones 1+ (Negative) H Urine Blood Negative /uL (Negative) Urine Nitrite Negative (Negative) Urine Bilirubin Negative (Negative) Urine Urobilinogen Normal mg/dL (Negative) Urine Leukocyte Esterase 2+ /uL (Negative) Urine RBC 7 /hpf (0 - 4) Urine Microscopic WBC 10 /HPF (0-5) H Urine Squamous Epithelial Cells Few /hpf (<5) Urine Calcium Oxalate Crystals Few (None Seen) Urine Bacteria None seen /hpf (None Seen) Urine Mucus Few (None Seen) Urine Glucose Normal mg/dL (Normal) Labs and/or images reviewed: Labs reviewed by me, Image(s) reviewed by me Assessment/Plan Assessment/Plan Sepsis Secondary to urinary tract infection: Blood cultures urine cultures Rocephin Acute abdominal pain with nausea and vomiting : CT abdomen pelvis without contrast negative Acute dehydration IV fluids Acute cystitis Anxiety Depression COPD History of [place] COPD Time spent 70 minutes Advanced care planning time 20 minutes Patient is full code Patient is hospice revoked Plan discussed with: Patient Date of Service: Dec 07, 2024 Billing Provider: FARNAZ MEHTA MD Common Visit Codes: [id number] CARE 30-74 MIN FARNAZ MEHTA MD Dec 07, 2024 13:21
[2024-12-08] VITALS (10 sets, daily range): BP systolic 109–130; BP diastolic 57–81; PULSE 55–65; RESP 16–18; TEMP 97.5–98.5; O2SAT 92–99
[2024-12-08 06:00] LABS: Hematocrit 38.9 % (36.0-46.0); Hemoglobin 13.4 g/dL (12.2-16.2); Mean Corpuscular Hemoglobin 33.3 pg (28.0-32.0); Mean Corpuscular Volume 96.7 fL (80.0-100.0); Nucleated Red Blood Cells % 0.3 %
[2024-12-08 06:09] LABS: Alanine Aminotransferase 12 U/L (7-40); Alkaline Phosphatase 50 U/L (46-116); Anion Gap 7 (5-15); BUN/Creatinine Ratio 15.6 (10.0-20.0); Bilirubin, Total 0.5 mg/dL (0.2-1.0); Blood Urea Nitrogen 10 mg/dL (9-23); Calcium 9.0 mg/dL (8.7-10.4); Carbon Dioxide 30 mmol/L (20-31); Chloride 105 mmol/L (98-107); Glucose 76 mg/dL (74-106); Potassium 4.0 mmol/L (3.5-5.1); Sodium 142 mmol/L (136-145)
[2024-12-08 06:11] LABS: Albumin 3.1 g/dL (3.2-4.8); Total Protein 5.1 g/dL (5.7-8.2)
[2024-12-08] MEDS: PANTOPRAZOLE 40 MG/10 ML VIAL INJ IV SCH (09:34)
--- NOTE | 2024-12-08 10:00 | DVHPN2 ---
Reviewed: Care Plan, H&P, Labs, Medications, Previous Orders, Radiology Changes from previous H/P or p: No Changes Eyes: No Pain, No Vision change, No Conjunctivae inflammation, No Eyelid inflammation, No Other, No Redness ENT: No Ear pain, No Ear discharge, No Nose pain, No Nose discharge, No Nose congestion, No Mouth pain, No Mouth swelling, No Throat pain, No Throat swelling, No Other Cardiovascular: No Chest Pain, No Palpitations, No Orthopnea, No Paroxysmal Noc. Dyspnea, No Edema, No Lt Headedness, No Other Respiratory: No Cough, No Dry, No Shortness of breath, No SOB with excertion, No Wheezing, No Hemoptysis, No Pleuritic Pain, No Sputum, No Other Gastrointestinal: Nausea, Vomiting, Abdominal Pain, Diarrhea; No Constipation, No Melena, No Hematochezia, No Other Genitourinary: No Dysuria, No Frequency, No Incontinence, No Hematuria, No Retention, No Other Musculoskeletal: No other, No neck pain, No shoulder pain, No arm pain, No back pain, No hand pain, No leg pain, No foot pain Skin: No Rash, No Lesions, No Jaundice, No Bruising, No Other Objective Vitals Vital Signs Date Time Temp Pulse Resp B/P (MAP) Pulse Ox O2 Delivery O2 Flow Rate FiO2 12/08/24 08:56 92 Nasal Cannula 2.0 12/08/24 08:56 28 12/08/24 04:32 97.6 55 17 130/71 (90) 97.6 Intake/Output Intake and Output 12/08/24 07:00 Intake Total 1610 ml Balance 1610 ml Intake Oral 560 ml IV Total 1050 ml # Voids 6 Medications Current Medications Medications Dose Ordered Sig/Katelynn Route Start Time Stop Time Status Last Admin Dose Admin Ceftriaxone Sodium 50 ml @ 100 mls/hr DAILY@09 IV 12/07/24 09:00 12/08/24 09:34 100 MLS/HR Ondansetron HCl 4 mg Q4HP PRN IV 12/07/24 07:45 Morphine Sulfate 2 mg Q4HPRN PRN IV 12/07/24 07:45 Nitroglycerin 0.4 mg Q5MINP PRN SL 12/07/24 07:45 Albuterol 2.5 mg Q4HPRN PRN NEB 12/07/24 07:45 Ipratropium [place] 0.5 mg Q4HPRN PRN NEB 12/07/24 07:45 Pantoprazole Sodium 40 mg DAILY IV 12/08/24 10:00 12/08/24 09:34 40 MG Sodium Chloride 1,000 ml @ 100 mls/hr Q10H IV 12/07/24 09:15 12/08/24 04:01 100 MLS/HR Laboratory Results Laboratory Tests 12/08/24 05:26 Chemistry Test 12/08/24 05:26 Albumin 3.1 g/dL (3.2-4.8) L Calcium Level 9.0 mg/dL (8.7-10.4) Total Protein 5.1 g/dL (5.7-8.2) L LFT Test 12/08/24 05:26 Alanine Aminotransferase (ALT) 12 U/L (7-40) Alkaline Phosphatase 50 U/L (46-116) Aspartate Amino Transferase (AST) 18 U/L (13-40) Total Bilirubin 0.5 mg/dL (0.2-1.0) Urinalysis Test 12/07/24 01:32 Urine Color Yellow (Yellow) Urine Clarity Clear (Clear) Urine pH 6.0 (5.0-9.0) Urine Specific [place] 1.036 (1.001-1.035) Urine Protein Trace (Negative) H Urine Ketones 1+ (Negative) H Urine Blood Negative /uL (Negative) Urine Nitrite Negative (Negative) Urine Bilirubin Negative (Negative) Urine Urobilinogen Normal mg/dL (Negative) Urine Leukocyte Esterase 2+ /uL (Negative) Urine RBC 7 /hpf (0 - 4) Urine Microscopic WBC 10 /HPF (0-5) H Urine Squamous Epithelial Cells Few /hpf (<5) Urine Calcium Oxalate Crystals Few (None Seen) Urine Bacteria None seen /hpf (None Seen) Urine Mucus Few (None Seen) Urine Glucose Normal mg/dL (Normal) Labs and/or images reviewed: Labs reviewed by me, Image(s) reviewed by me Assessment/Plan Assessment/Plan Sepsis Secondary to urinary tract infection: Blood cultures pending , urine cultures pending, continue Rocephin Acute abdominal pain with nausea and vomiting : CT abdomen pelvis without contrast negative Acute dehydration IV fluids Acute cystitis Anxiety Depression COPD History of [place] COPD Time spent 50 minutes Advanced care planning time 20 minutes Patient is full code Patient is hospice revoked Plan discussed with: Patient Date of Service: Dec 08, 2024 Billing Provider: FARNAZ MEHTA MD Common Visit Codes: [id number] INP/OBS CARE(HIGH) FARNAZ MEHTA MD Dec 08, 2024 10:00
[2024-12-09] VITALS (10 sets, daily range): BP systolic 96–147; BP diastolic 55–80; PULSE 50–87; RESP 16–95; TEMP 97.6–98.3; O2SAT 93–98
[2024-12-09 09:20] LABS: Hematocrit 37.4 % (36.0-46.0); Hemoglobin 12.7 g/dL (12.2-16.2); Mean Corpuscular Hemoglobin 33.3 pg (28.0-32.0); Mean Corpuscular Volume 98.1 fL (80.0-100.0); Nucleated Red Blood Cells % 0.1 %
[2024-12-09 09:21] LABS: Chloride 107 mmol/L (98-107); Potassium 4.1 mmol/L (3.5-5.1); Sodium 142 mmol/L (136-145)
[2024-12-09 09:22] LABS: Anion Gap 5 (5-15); Carbon Dioxide 30 mmol/L (20-31)
[2024-12-09 09:27] LABS: BUN/Creatinine Ratio 19.2 (10.0-20.0); Blood Urea Nitrogen 14 mg/dL (9-23)
[2024-12-09 09:35] LABS: Calcium 8.6 mg/dL (8.7-10.4); Glucose 110 mg/dL (74-106)
--- NOTE | 2024-12-09 10:23 | DVHPN2 ---
Reviewed: Care Plan, H&P, Labs, Medications, Previous Orders, Radiology Changes from previous H/P or p: No Changes Eyes: No Pain, No Vision change, No Conjunctivae inflammation, No Eyelid inflammation, No Other, No Redness ENT: No Ear pain, No Ear discharge, No Nose pain, No Nose discharge, No Nose congestion, No Mouth pain, No Mouth swelling, No Throat pain, No Throat swelling, No Other Cardiovascular: No Chest Pain, No Palpitations, No Orthopnea, No Paroxysmal Noc. Dyspnea, No Edema, No Lt Headedness, No Other Respiratory: No Cough, No Dry, No Shortness of breath, No SOB with excertion, No Wheezing, No Hemoptysis, No Pleuritic Pain, No Sputum, No Other Gastrointestinal: Nausea, Vomiting, Abdominal Pain, Diarrhea; No Constipation, No Melena, No Hematochezia, No Other Genitourinary: No Dysuria, No Frequency, No Incontinence, No Hematuria, No Retention, No Other Musculoskeletal: No other, No neck pain, No shoulder pain, No arm pain, No back pain, No hand pain, No leg pain, No foot pain Skin: No Rash, No Lesions, No Jaundice, No Bruising, No Other Objective Vitals Vital Signs Date Time Temp Pulse Resp B/P (MAP) Pulse Ox O2 Delivery O2 Flow Rate FiO2 12/09/24 08:02 98.3 87 16 102/64 (77) 97 98.3 12/08/24 20:00 Nasal Cannula* 2 28 Intake/Output Intake and Output 12/09/24 07:00 Intake Total 1250 ml Balance 1250 ml Intake Oral 1250 ml # Voids 6 # Bowel Movements 2 Medications Current Medications Medications Dose Ordered Sig/Katelynn Route Start Time Stop Time Status Last Admin Dose Admin Ceftriaxone Sodium 50 ml @ 100 mls/hr DAILY@09 IV 12/07/24 09:00 12/09/24 09:27 100 MLS/HR Ondansetron HCl 4 mg Q4HP PRN IV 12/07/24 07:45 Morphine Sulfate 2 mg Q4HPRN PRN IV 12/07/24 07:45 Nitroglycerin 0.4 mg Q5MINP PRN SL 12/07/24 07:45 Albuterol 2.5 mg Q4HPRN PRN NEB 12/07/24 07:45 Ipratropium [place] 0.5 mg Q4HPRN PRN NEB 12/07/24 07:45 Pantoprazole Sodium 40 mg DAILY IV 12/08/24 10:00 12/09/24 09:27 40 MG Sodium Chloride 1,000 ml @ 100 mls/hr Q10H IV 12/07/24 09:15 12/09/24 01:15 100 MLS/HR Laboratory Results Laboratory Tests 12/09/24 08:44 Chemistry Test 12/09/24 08:44 Calcium Level 8.6 mg/dL (8.7-10.4) L Urinalysis Test 12/07/24 01:32 Urine Color Yellow (Yellow) Urine Clarity Clear (Clear) Urine pH 6.0 (5.0-9.0) Urine Specific [place] 1.036 (1.001-1.035) Urine Protein Trace (Negative) H Urine Ketones 1+ (Negative) H Urine Blood Negative /uL (Negative) Urine Nitrite Negative (Negative) Urine Bilirubin Negative (Negative) Urine Urobilinogen Normal mg/dL (Negative) Urine Leukocyte Esterase 2+ /uL (Negative) Urine RBC 7 /hpf (0 - 4) Urine Microscopic WBC 10 /HPF (0-5) H Urine Squamous Epithelial Cells Few /hpf (<5) Urine Calcium Oxalate Crystals Few (None Seen) Urine Bacteria None seen /hpf (None Seen) Urine Mucus Few (None Seen) Urine Glucose Normal mg/dL (Normal) Microbiology Microbiology Date/Time Source Procedure Growth Status 12/07/24 12:00 Blood Blood Culture - Preliminary NO GROWTH AFTER 24 HOURS OF INCUBATION. Resulted 12/07/24 01:32 Voided Urine Urine Culture - Preliminary Resulted Labs and/or images reviewed: Labs reviewed by me, Image(s) reviewed by me Assessment/Plan Assessment/Plan Sepsis Secondary to urinary tract infection: Blood cultures negative , urine cultures pending, continue Rocephin Acute abdominal pain with nausea and vomiting : CT abdomen pelvis without contrast negative Acute dehydration IV fluids Acute cystitis Anxiety Depression COPD History of [place] COPD Time spent 50 minutes Advanced care planning time 20 minutes Patient is full code Patient is hospice revoked Pts lead care manager and SOPHIA Muhammad [phone] Plan discussed with: Patient My Orders Orders - FARNAZ MEHTA MD Procedure Category Date Status Time Soft Diet DIET 12/08/24 Transmitted Lunch Date of Service: Dec 09, 2024 Billing Provider: FARNAZ MEHTA MD Common Visit Codes: [id number] INP/OBS CARE(HIGH) FARNAZ MEHTA MD Dec 09, 2024 10:23
[2024-12-10] VITALS (11 sets, daily range): BP systolic 105–129; BP diastolic 67–85; PULSE 54–65; RESP 16–18; TEMP 97.7–98; O2SAT 91–94
--- NOTE | 2024-12-10 11:56 | DVHPN2 ---
Reviewed: Care Plan, H&P, Labs, Medications, Previous Orders, Radiology Changes from previous H/P or p: No Changes Eyes: No Pain, No Vision change, No Conjunctivae inflammation, No Eyelid inflammation, No Other, No Redness ENT: No Ear pain, No Ear discharge, No Nose pain, No Nose discharge, No Nose congestion, No Mouth pain, No Mouth swelling, No Throat pain, No Throat swelling, No Other Cardiovascular: No Chest Pain, No Palpitations, No Orthopnea, No Paroxysmal Noc. Dyspnea, No Edema, No Lt Headedness, No Other Respiratory: No Cough, No Dry, No Shortness of breath, No SOB with excertion, No Wheezing, No Hemoptysis, No Pleuritic Pain, No Sputum, No Other Gastrointestinal: Nausea, Vomiting, Abdominal Pain, Diarrhea; No Constipation, No Melena, No Hematochezia, No Other Genitourinary: No Dysuria, No Frequency, No Incontinence, No Hematuria, No Retention, No Other Musculoskeletal: No other, No neck pain, No shoulder pain, No arm pain, No back pain, No hand pain, No leg pain, No foot pain Skin: No Rash, No Lesions, No Jaundice, No Bruising, No Other Objective Vitals Vital Signs Date Time Temp Pulse Resp B/P (MAP) Pulse Ox O2 Delivery O2 Flow Rate FiO2 12/10/24 08:03 63 18 129/84 92 0.0 21 12/10/24 08:00 Room Air* 12/10/24 05:00 97.7 97.7 Intake/Output Intake and Output 12/10/24 07:00 Intake Total 1950 ml Output Total 800 ml Balance 1150 ml Intake Oral 1900 ml IV Total 50 ml Output Urine Total 800 ml # Bowel Movements 2 Medications Current Medications Medications Dose Ordered Sig/Katelynn Route Start Time Stop Time Status Last Admin Dose Admin Ceftriaxone Sodium 50 ml @ 100 mls/hr DAILY@09 IV 12/07/24 09:00 12/10/24 09:06 100 MLS/HR Ondansetron HCl 4 mg Q4HP PRN IV 12/07/24 07:45 Morphine Sulfate 2 mg Q4HPRN PRN IV 12/07/24 07:45 Nitroglycerin 0.4 mg Q5MINP PRN SL 12/07/24 07:45 Albuterol 2.5 mg Q4HPRN PRN NEB 12/07/24 07:45 Ipratropium [place] 0.5 mg Q4HPRN PRN NEB 12/07/24 07:45 Pantoprazole Sodium 40 mg DAILY IV 12/08/24 10:00 12/10/24 09:07 40 MG Sodium Chloride 1,000 ml @ 100 mls/hr Q10H IV 12/07/24 09:15 12/10/24 10:43 100 MLS/HR Laboratory Results Laboratory Tests 12/09/24 08:44 Urinalysis Test 12/07/24 01:32 Urine Color Yellow (Yellow) Urine Clarity Clear (Clear) Urine pH 6.0 (5.0-9.0) Urine Specific [place] 1.036 (1.001-1.035) Urine Protein Trace (Negative) H Urine Ketones 1+ (Negative) H Urine Blood Negative /uL (Negative) Urine Nitrite Negative (Negative) Urine Bilirubin Negative (Negative) Urine Urobilinogen Normal mg/dL (Negative) Urine Leukocyte Esterase 2+ /uL (Negative) Urine RBC 7 /hpf (0 - 4) Urine Microscopic WBC 10 /HPF (0-5) H Urine Squamous Epithelial Cells Few /hpf (<5) Urine Calcium Oxalate Crystals Few (None Seen) Urine Bacteria None seen /hpf (None Seen) Urine Mucus Few (None Seen) Urine Glucose Normal mg/dL (Normal) Microbiology Microbiology Date/Time Source Procedure Growth Status 12/07/24 12:00 Blood Blood Culture - Preliminary NO GROWTH AFTER 48 HOURS OF INCUBATION. Resulted 12/07/24 01:32 Voided Urine Urine Culture - Preliminary Presumptive Brandi albicans Resulted Labs and/or images reviewed: Labs reviewed by me, Image(s) reviewed by me Assessment/Plan Assessment/Plan Sepsis Secondary to urinary tract infection: Blood cultures negative , urine cultures presumptive Brandi albicans , continue Rocephin add Diflucaniv Acute abdominal pain with nausea and vomiting : CT abdomen pelvis without contrast negative Acute dehydration IV fluids Acute cystitis Anxiety Depression COPD History of [place] COPD Time spent 50 minutes Advanced care planning time 20 minutes Patient is full code Patient is hospice revoked Pts care team coordinator scheduler and SOPHIA Muhammad [phone] Plan discussed with: Patient Date of Service: Dec 10, 2024 Billing Provider: FARNAZ MEHTA MD Common Visit Codes: [id number] INP/OBS CARE(HIGH) FARNAZ MEHTA MD Dec 10, 2024 11:56
[2024-12-10] MEDS: FLUCONAZOLE 200MG/100ML 100 ML IV ONE ×2 (12:16→15:16)
[2024-12-11] VITALS (8 sets, daily range): BP systolic 96–128; BP diastolic 68–82; PULSE 50–76; RESP 12–22; TEMP 97–98.8; O2SAT 91–94
[2024-12-11] MEDS: FLUCONAZOLE 200MG/100ML 100 ML IV SCH (10:39)
--- NOTE | 2024-12-11 12:58 | DVHDS2 ---
Discharge Summary Date of Admission Dec 07, 2024 at 07:42 Date of Discharge: Dec 11, 2024 Admitting Diagnosis Altered mental status and confusion Wounds: None Labs/Diagnostic Data: Laboratory Results Test 12/09/24 08:44 12/08/24 05:26 12/07/24 09:58 12/07/24 01:32 White Blood Count 5.1 10^3/uL (4.4-10.8) Red Blood Count 3.81 10^6/uL (4.0-5.20) Hemoglobin 12.7 g/dL (12.2-16.2) Hematocrit 37.4 % (36.0-46.0) Mean Corpuscular Volume 98.1 fL (80.0-100.0) Mean Corpuscular Hemoglobin 33.3 pg (28.0-32.0) Mean Corpuscular Hemoglobin Concent 34.0 g/dL (32.0-36.0) Red Cell Distribution Width 14.4 % (11.8-14.3) Platelet Count 167 10^3/uL (140-450) Mean Platelet Volume 8.8 fL (6.9-10.8) Neutrophils (%) (Auto) 50.8 % (37.0-80.0) Lymphocytes (%) (Auto) 39.4 % (10.0-50.0) Monocytes (%) (Auto) 8.4 % (0.0-12.0) Eosinophils (%) (Auto) 1.3 % (0.0-7.0) Basophils (%) (Auto) 0.1 % (0.0-2.0) Neutrophils # (Auto) 2.6 10 ^3/uL (1.6-8.6) Lymphocytes # (Auto) 2.0 10 ^3/uL (0.4-5.4) Monocytes # (Auto) 0.4 10 ^3/uL (0-1.3) Eosinophils # (Auto) 0.1 10 ^3/uL (0-0.8) Basophils # (Auto) 0 10 ^3/uL (0-0.2) Nucleated Red Blood Cells 0.1 % Sodium Level 142 mmol/L (136-145) Potassium Level 4.1 mmol/L (3.5-5.1) Chloride Level 107 mmol/L (98-107) Carbon Dioxide Level 30 mmol/L (20-31) Anion Gap 5 (5-15) Blood Urea Nitrogen 14 mg/dL (9-23) Creatinine 0.73 mg/dL (0.550-1.02) Glomerular Filtration Rate Calc 88 mL/min (>90) BUN/Creatinine Ratio 19.2 (10.0-20.0) Serum Glucose 110 mg/dL (74-106) Calcium Level 8.6 mg/dL (8.7-10.4) Total Bilirubin 0.5 mg/dL (0.2-1.0) Aspartate Amino Transferase (AST) 18 U/L (13-40) Alanine Aminotransferase (ALT) 12 U/L (7-40) Alkaline Phosphatase 50 U/L (46-116) Total Protein 5.1 g/dL (5.7-8.2) Albumin 3.1 g/dL (3.2-4.8) Lactic Acid Level 2.2 mmol/L (0.4-2.0) Urine Color Yellow (Yellow) Urine Clarity Clear (Clear) Urine pH 6.0 (5.0-9.0) Urine Specific [place] 1.036 (1.001-1.035) Urine Protein Trace (Negative) Urine Ketones 1+ (Negative) Urine Blood Negative /uL (Negative) Urine Nitrite Negative (Negative) Urine Bilirubin Negative (Negative) Urine Urobilinogen Normal mg/dL (Negative) Urine Leukocyte Esterase 2+ /uL (Negative) Urine RBC 7 /hpf (0 - 4) Urine Microscopic WBC 10 /HPF (0-5) Urine Squamous Epithelial Cells Few /hpf (<5) Urine Calcium Oxalate Crystals Few (None Seen) Urine Bacteria None seen /hpf (None Seen) Urine Mucus Few (None Seen) Urine Glucose Normal mg/dL (Normal) Test 12/07/24 00:45 12/06/24 23:59 Troponin I High Sensitivity 5 ng/L (</=34) Lipase 38 U/L (12-53) Other Laboratory Tests 12/09/24 08:44 Brief Hx & Hospital Course: 69-year-old female with a history of anxiety depression COPD [place] dementia burden by caregiver altered mental status and confusion found to be in sepsis secondary to urinary tract infection. Blood cultures negative urine cultures showing present to Brandi albicans. Started on Rocephin and Diflucan. Patient feels better more alert with a stable vital signs discussed with the caregiver Sabina and the patient being discharged to long term facility to receive IV antibiotics for two weeks Consults/Reason for consult None Operations or Procedures None Condition at Discharge: Fair Final Diagnosis/Problems List Sepsis Secondary to urinary tract infection: Blood cultures negative , urine cultures presumptive Brandi albicans , continue Rocephin add Diflucaniv Acute abdominal pain with nausea and vomiting : CT abdomen pelvis without contrast negative Acute dehydration IV fluids Acute cystitis Anxiety Depression COPD History of [place] COPD Discharge Disposition: [facility] Facility Discharge Instruct/Medications Diet: Regular Activity: Light activity Follow Up/Referral: [facility] with [facility] Medications: Rocephin 1 g IV daily for two weeks Scheduled Ascorbic Acid (Vitamin C Tablet), 1 TAB PO BID Atorvastatin Calcium (Atorvastatin Calcium), 1 TAB PO DAILY, (Reported) Cholecalciferol (Vitamin D3 Super Strength), 2,000 UNIT PO Q24H Dexamethasone (Decadron), 6 MG PO Q24H Divalproex Sodium (Divalproex Sodium Dr), 1 TAB PO TID, (Reported) Escitalopram Oxalate (Escitalopram Oxalate), 1.5 TAB PO DAILY, (Reported) Levofloxacin Hemihydrate (Levaquin 500 Mg), 1 TAB PO DAILY Nitrofurantoin Monohydrate Mac (Macrobid), 100 MG PO BID Olanzapine (Olanzapine), 1 TAB PO DAILY, (Reported) Quetiapine Fumerate (Quetiapine Fumarate), 3 TAB PO HS, (Reported) Zinc Sulfate (Zinc), 220 MG PO Q24H 35 (Time taken for discharge summary 35 minutes) Discharge Statement: "Patient was advised to return to the ER or call 911 if any headaches, dizziness, shortness of breath, chest pain, abdominal pain, bleeding, fevers, or worsening of medical condition. Patient was counseled about treatment plan, medications, possible side effects, patientverbalized understanding. All questions were answered to the best of my ability. This discharge took greater then 30 minutes in planning, reviewing documentation, counseling the patient, and discussing with other team members." ASSESSMENT ASSESSMENT Hospital Course Improved Assessment Sepsis Secondary to urinary tract infection: Blood cultures negative , urine cultures presumptive Brandi albicans , continue Rocephin add Diflucaniv Acute abdominal pain with nausea and vomiting : CT abdomen pelvis without contrast negative Acute dehydration IV fluids Acute cystitis Anxiety Depression COPD History of [place] COPD Date of Service: Dec 11, 2024 Billing Provider: FARNAZ MEHTA MD Common Visit Codes: [id number] DISCH DAY >30min FARNAZ MEHTA MD Dec 11, 2024 12:58
== END 2024-12-11 21:05 | DRG 872 ==
LOC: EDBD 21:06 → ER 21:06 → OVERFLOW 12-07 07:42 → WEST WING 12-07 18:21
PROVIDERS: ADMIT Family Medicine; ATTEND Family Medicine
PROC: 05HB33Z Insertion of Infusion Device into Right Basilic Vein, Percutaneous Approach (ICD-10-PCS; principal; 2024-12-11)
PROC: B54MZZA Ultrasonography of Right Upper Extremity Veins, Guidance (ICD-10-PCS; 2024-12-11)
DX: A41.9 Sepsis, unspecified organism (principal); N30.00 Acute cystitis without hematuria; E87.20 Acidosis, unspecified; F03.94 Unspecified dementia, unspecified severity, with anxiety; E86.0 Dehydration; J44.9 Chronic obstructive pulmonary disease, unspecified; F41.9 Anxiety disorder, unspecified; F32.A Depression, unspecified; J43.9 Emphysema, unspecified; Z98.51 Tubal ligation status; I25.2 Old myocardial infarction; Z79.899 Other long term (current) drug therapy
CPT/HCPCS: 36415; 74176; 80048; 80053; 81001; 83605; 83690; 84484; 85025; 87040; 87086; 87088; 96365; 96375; G0378; J1450; J2470